=== PATIENT | male | born 1960 | race Caucasian/White ===

== ENCOUNTER 2016-11-25 11:38 | Emergency (ER) | payer OTHER, MEDICAID ==
[~2016-11-25] VITALS: Ht 172.7 cm; Wt 85.0 kg
[~2016-11-25 11:38] MED LIST: IBUP-238 PO; PENI500T PO; Z.0.NO CURRENT MEDS
[2016-11-25 11:40] VITALS: BP 182/97; PULSE 94; RESP 20; TEMP 98.4; O2SAT 96
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
[2016-11-25] MEDS ORDERED: HYDR-3583 PO (11:58)
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
[2016-11-25] MEDS ORDERED: IBUPROFEN 800 MG TAB PO ONE (12:00)
[2016-11-25] MEDS ORDERED: METHOCARBAMOL 500 MG TAB PO ONE (12:00)
[2016-11-25 13:03] VITALS: RESP 16
--- NOTE | 2016-11-25 14:04 | RADRPT ---
EXAM DATE/TIME: 11/25/2016 13:37 [facility] COMPARISON: No previous studies available for comparison. INDICATIONS : Right elbow pain after falling last night. MEDICAL HISTORY : None. SURGICAL HISTORY : None. ENCOUNTER: Initial ACUITY: 2 days PAIN SCORE: 5/10 LOCATION: Right elbow. FINDINGS: Degenerative changes are evident. Small joint effusion is noted. Alignment is anatomic. Fracture i s not appreciated. CONCLUSION: Trace joint effusion without fracture. Cuate Galeano MD FACR on November 25, 2016 at 13:59 Board Certified Radiologist. This report was verified electronically.
--- NOTE | 2016-11-25 14:07 | RADRPT ---
EXAM DATE/TIME: 11/25/2016 13:34 [facility] COMPARISON: No previous studies available for comparison. INDICATIONS : Left shoulder pain after falling last night. MEDICAL HISTORY : None. SURGICAL HISTORY : None. ENCOUNTER: Initial ACUITY: 2 days PAIN SCORE: 8/10 LOCATION: Left shoulder. FINDINGS: Degenerative changes are present at the AC joint. Rotator cuff interval is narrow. Glenoid is intac t. Lung apex is clear. CONCLUSION: Degenerative changes. What could be large impingement with rotator tear is suspected. Cuate Galeano MD FACR on November 25, 2016 at 13:58 Board Certified Radiologist. This report was verified electronically.
[2016-11-25] MEDS ORDERED: HYDR-3533 PO (14:19)
[2016-11-25] MEDS ORDERED: IBUP800T23 PO (14:19)
== END 2016-11-25 14:55 | disposition home or self-care (01) ==
LOC: NEPD 11:38
DX: S49.92XA Unspecified injury of left shoulder and upper arm, initial encounter (principal); S59.901A Unspecified injury of right elbow, initial encounter; S39.012A Strain of muscle, fascia and tendon of lower back, initial encounter; F31.9 Bipolar disorder, unspecified; E78.00 Pure hypercholesterolemia, unspecified; J44.9 Chronic obstructive pulmonary disease, unspecified; I10 Essential (primary) hypertension; K85.90 Acute pancreatitis without necrosis or infection, unspecified; V19.9XXA Pedal cyclist (driver) (passenger) injured in unspecified traffic accident, initial encounter
CPT/HCPCS: 73030; 73080; 99284

== ENCOUNTER 2017-04-03 19:57 | Emergency (ER) | payer OTHER, MEDICAID ==
[~2017-04-03 19:57] MED LIST changes: +HYDR-3533 PO; +HYDR-3583 PO; -IBUP-238 PO; +IBUP1TAB7 PO; -PENI500T PO; -Z.0.NO CURRENT MEDS
[2017-04-03 20:04] VITALS: BP 126/67; PULSE 115; RESP 18; TEMP 98.5; O2SAT 97
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
[2017-04-03] MEDS ORDERED: ROBA750T PO (21:03)
[2017-04-03] MEDS ORDERED: IBUP-232 PO (21:03)
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
[2017-04-03] MEDS ORDERED: IBUPROFEN 600 MG TAB PO ONE (21:45)
== END 2017-04-03 22:02 | disposition home or self-care (01) ==
LOC: NEPD 19:57
DX: S16.1XXA Strain of muscle, fascia and tendon at neck level, initial encounter (principal); S20.211A Contusion of right front wall of thorax, initial encounter; S70.02XA Contusion of left hip, initial encounter; V13.4XXA Pedal cycle driver injured in collision with car, pick-up truck or van in traffic accident, initial encounter; Y93.55 Activity, bike riding; E78.00 Pure hypercholesterolemia, unspecified; F31.9 Bipolar disorder, unspecified; I10 Essential (primary) hypertension; F17.200 Nicotine dependence, unspecified, uncomplicated
CPT/HCPCS: 71045; 72040; 73502; 99284

== ENCOUNTER 2017-08-07 18:19 | Inpatient (IN) | payer OTHER, MEDICAID, MEDICARE ==
[2017-08-07] VITALS (7 sets, daily range): BP systolic 174–223; BP diastolic 93–110; PULSE 83–92; RESP 18–20; TEMP 98.1–98.3; O2SAT 92–98
[~2017-08-07] VITALS: Ht 170.2 cm; Wt 78.5 kg
[~2017-08-07 18:19] MED LIST changes: +IBUP-232 PO; +ROBA750T PO
[2017-08-07 19:01] LABS: AUTOMATED NEUTROPHIL # 7.7 TH/MM3 (1.8-7.7); BASOPHIL # 0.1 TH/MM3 (0-0.2); BASOPHIL % 0.8 % (0.0-2.0); EOSINOPHIL # 0.3 TH/MM3 (0-0.4); EOSINOPHIL % 2.8 % (0.0-4.0); HEMATOCRIT 40.8 % (39.0-51.0); LYMPH % 19.3 % (9.0-44.0); LYMPHOCYTE # 2.2 TH/MM3 (1.0-4.8); MEAN CELL VOLUME 90.5 FL (80.0-100.0); MEAN CORPUSCULAR HEMOGLOBIN 31.1 PG (27.0-34.0); MEAN CORPUSCULAR HGB CONC 34.3 % (32.0-36.0); MEAN PLATELET VOLUME 10.8 FL (7.0-11.0); MONO % 9.4 % (0.0-8.0); MONOCYTE # 1.1 TH/MM3 (0-0.9); NEUT % 67.7 % (16.0-70.0); PLATELET COUNT 233 TH/MM3 (150-450); RED CELL DISTRIBUTION WIDTH 14.1 % (11.6-17.2); WHITE BLOOD COUNT 11.4 TH/MM3 (4.0-11.0)
[2017-08-07 19:09] LABS: BILIRUBIN, URINE NEG (NEG); BLOOD, URINE NEG (NEG); GLUCOSE,URINE NEG (NEG); KETONE, URINE NEG (NEG); NITRITE,URINE NEG (NEG); PH, URINE 6.5 (5.0-8.5); URINE COLOR LIGHT-YELLOW (YELLW/STRAW); URINE LEUKOCYTE ESTERASE NEG (NEG)
[2017-08-07] MEDS ORDERED: SODIUM CHLOR 0.9% 1000 ML INJ 1,000 ML IV ONE (19:15)
[2017-08-07] MEDS ORDERED: SODIUM CHLORIDE 0.9% FLUSH 10 ML FLUSH IVF PRN (19:15)
[2017-08-07 19:20] LABS: BICARBONATE 28.3 MEQ/L (21.0-32.0); CALCIUM 8.8 MG/DL (8.5-10.1); CREATININE 1.24 MG/DL (0.60-1.30)
--- NOTE | 2017-08-07 19:49 | RADRPT ---
EXAM DATE: 08/07/2017 7:33 PM EDT AGE/SEX: 57 years / Male INDICATIONS: Left sided weakness and slurred speech. CLINICAL DATA: This is the patient's initial encounter. Patient reports that signs and symptoms have been present for 1 day and indicates a pain score of 0/10. MEDICAL/SURGICAL HISTORY: Hypertension. Chronic obstructive pulmonary disease. Pancreatitis. None . RADIATION DOSE: 36.37 CTDI (mGy) COMPARISON: No prior exams available for comparison. TECHNIQUE: CT of the head without contrast. Using automated exposure control and adjustment of the mA and/or kV according to patient size, radiation dose was kept as low as reasonably achievable to ob tain optimal diagnostic quality images. FINDINGS: Cerebrum: There is some low attenuation in the right parietal lobe which could represent a subacute or remote infarct. There is no associated hemorrhage or mass effect. Remote lacunar infarct right bas al ganglia. No acute bony abnormalities. Posterior Fossa: The cerebellum and brainstem are intact. The 4th ventricle is midline. The cerebe llopontine angle is unremarkable. Extracranial: The visualized portion of the orbits is intact. Skull: The calvaria is intact. No evidence of skull fracture. CONCLUSION: 1. Wedge-shaped area of decreased attenuation in the right parietal lobe most characteristic of a shahid bacute or remote infarct. Also remote right lacunar infarct in the basal ganglia. No hemorrhage or ma ss effect. Electronically signed by: Remigio Parekh MD 08/07/2017 7:48 PM EDT
--- NOTE | 2017-08-07 19:51 | RADRPT ---
EXAM DATE: 08/07/2017 7:39 PM EDT AGE/SEX: 57 years / Male INDICATIONS: Left sided weakness and slurred speech. CLINICAL DATA: This is the patient's initial encounter. Patient reports that signs and symptoms have been present for 1 day and indicates a pain score of 0/10. MEDICAL/SURGICAL HISTORY: Hypertension. Chronic obstructive pulmonary disease. Pancreatitis. None. RADIATION DOSE: 23.42 CTDI (mGy) COMPARISON: No prior exams available for comparison. TECHNIQUE: Contiguous axial images were obtained using helical multirow detector technique. The vol umetric data was post-processed with multiplanar reconstruction in oblique axial, sagittal, and coron al planes. Using automated exposure control and adjustment of the mA and/or kV according to patient s ize, radiation dose was kept as low as reasonably achievable to obtain optimal diagnostic quality pilo ges. FINDINGS: There is no acute fracture or spondylolisthesis. There is fusion across C6-7. There is no significant bony canal stenosis. Moderate degenerative changes present. No prevertebral soft tissue swelling. CONCLUSION: 1. Moderate degenerative change. Previous fusion at C6-7. No significant canal stenosis. Electronically signed by: Remigio Parekh MD 08/07/2017 7:50 PM EDT
--- NOTE | 2017-08-07 20:03 | RADRPT ---
EXAM DATE: 08/07/2017 7:42 PM EDT AGE/SEX: 57 years / Male INDICATIONS: SOB CLINICAL DATA: This is the patient's initial encounter. Patient reports that signs and symptoms have been present for 3 days and indicates a pain score of 0/10. MEDICAL/SURGICAL HISTORY: None. None. COMPARISON: [facility], CHEST SINGLE AP, 04/03/2017. . FINDINGS: A single AP view of the chest demonstrates the lungs to be symmetrically aerated without evidence of mass, infiltrate or effusion. The cardiomediastinal contours are unremarkable. Osseous structures a re intact. CONCLUSION: No active disease. Electronically signed by: Remigio Parekh MD 08/07/2017 8:01 PM EDT
[2017-08-07] MEDS ORDERED: SERO100T PO (20:07)
--- NOTE | 2017-08-07 20:13 | PD ---
HPI Chief Complaint: Neuro Symptoms/ Deficits Time Seen by Provider: 19:04 Travel History International Travel<30 days: No Contact w/Intl Traveler<30days: No Traveled to known affect area: No History of Present Illness HPI Patient is a 57-year-old male with history of hypertension, hyperlipidemia, COPD as well as chronic pain who presents to the emergency room with complaints of left arm weakness. Patient reports that since yesterday morning, he has been unable to move his left arm. Reports that he has had this jerking sensation to his left face as well as jerking sensation to his left arm. Also reports some slurring of speech since yesterday morning. Patient denies history of CVA in the past. Patient with no headache or dizziness, no chest pain or shortness of breath. PFSH Past Medical History Blood Disorders: No Bipolar Disorder: Yes High Cholesterol: Yes COPD: Yes (chronic bronchitis) Diminished Hearing: No Hypertension: Yes Pancreatitis: Yes ?: Not Social History Alcohol Use: No Tobacco Use: Yes (1 PPD) Substance Use: Yes (THC Daily, Coccaine on occasion) Allergies-Medications (Allergen,Severity, Reaction): Coded Allergies: No Known Allergies (Verified Adverse Reaction, Unknown, 04/03/17) Reported Meds & Prescriptions Reported Meds & Active Scripts Active Robaxin (Methocarbamol) 750 Mg Tab 750 Mg PO QID Reported Seroquel (Quetiapine Fumarate) 100 Mg Tab 100 Mg PO HS Hydrocodone-Acetaminophen 10-325 mg Tab 1 Tab PO Q6H PRN Review of Systems General / Constitutional: No: Fever Eyes: No: Visual changes HENT: No: Headaches Cardiovascular: No: Chest Pain or Discomfort Respiratory: No: Shortness of Breath Gastrointestinal: No: Abdominal Pain Genitourinary: No: Dysuria Musculoskeletal: No: Pain Skin: No Rash Neurologic: Positive: Focal Abnormalities, Coordination Problem, Slurred Speech , Paresthesia, No: Weakness, Headache, Seizures, Sensory Disturbance Psychiatric: No: Depression Endocrine: No: Polydipsia Hematologic/Lymphatic: No: Easy Bruising Physical Exam Narrative GENERAL: Moderate distress SKIN: Focused skin assessment warm/dry. HEAD: Atraumatic. Normocephalic. EYES: Pupils equal and round. No scleral icterus. No injection or drainage. ENT: No nasal bleeding or discharge. Mucous membranes pink and moist. NECK: Trachea midline. No JVD. CARDIOVASCULAR: Regular rate and rhythm. No murmur appreciated. RESPIRATORY: No accessory muscle use. Clear to auscultation. Breath sounds equal bilaterally. GASTROINTESTINAL: Abdomen soft, non-tender, nondistended. Hepatic and splenic margins not palpable. MUSCULOSKELETAL: No obvious deformities. No clubbing. No cyanosis. No edema. NEUROLOGICAL: Awake and alert. Patient with slurring of speech, patient does have weakness to his left upper extremity, he is unable to move his lue PSYCHIATRIC: Anxious mood and affect; insight and judgment normal. Data Data Last Documented VS Vital Signs Date Time Temp Pulse Resp B/P (MAP) Pulse Ox O2 Delivery O2 Flow Rate FiO2 08/07/17 20:17 83 20 196/93 (127) 94 Room Air 08/07/17 18:48 98.3 Orders Orders Oximetry (08/07/17 18:42) Iv Access Insert/Monitor (08/07/17 18:42) Ecg Monitoring (08/07/17 18:42) Oxygen Administration (08/07/17 18:42) Electrocardiogram (08/07/17 18:42) Complete Blood Count With Diff (08/07/17 18:42) Basic Metabolic Panel (Bmp) (08/07/17 18:42) Urinalysis - C+S If Indicated (08/07/17 18:42) Coag Profile (08/07/17 18:42) Electrocardiogram (08/07/17 19:04) Creatine Kinase (Cpk) (08/07/17 19:04) Troponin I (08/07/17 19:04) Ct Brain W/O Iv Contrast(Rout) (08/07/17 19:04) Blood Glucose (08/07/17 19:04) Sodium Chloride 0.9% Flush (Ns Flush) (08/07/17 19:15) Ct Cerv Spine W/O Contrast (08/07/17 19:04) Chest, Single Ap (08/07/17 19:04) Sodium Chlor 0.9% 1000 Ml Inj (Ns 1000 M (08/07/17 19:15) Aspirin Chew (Aspirin Chew) (08/07/17 20:15) Lorazepam Inj (Ativan Inj) (08/07/17 20:30) Admit Order (Ed Use Only) (08/07/17 20:44) Labs Laboratory Tests Test 08/07/17 18:45 08/07/17 18:48 Urine Color LIGHT-YELLOW Urine Turbidity CLEAR Urine pH 6.5 Urine Specific [place] 1.007 Urine Protein NEG mg/dL Urine Glucose (UA) NEG mg/dL Urine Ketones NEG mg/dL Urine Occult Blood NEG Urine Nitrite NEG Urine Bilirubin NEG Urine Urobilinogen LESS THAN 2.0 MG/DL Urine Leukocyte Esterase NEG Urine RBC LESS THAN 1 /hpf Urine WBC LESS THAN 1 /hpf Microscopic Urinalysis Comment CULT NOT INDICATED White Blood Count 11.4 TH/MM3 Red Blood Count 4.50 MIL/MM3 Hemoglobin 14.0 GM/DL Hematocrit 40.8 % Mean Corpuscular Volume 90.5 FL Mean Corpuscular Hemoglobin 31.1 PG Mean Corpuscular Hemoglobin Concent 34.3 % Red Cell Distribution Width 14.1 % Platelet Count 233 TH/MM3 Mean Platelet Volume 10.8 FL Neutrophils (%) (Auto) 67.7 % Lymphocytes (%) (Auto) 19.3 % Monocytes (%) (Auto) 9.4 % Eosinophils (%) (Auto) 2.8 % Basophils (%) (Auto) 0.8 % Neutrophils # (Auto) 7.7 TH/MM3 Lymphocytes # (Auto) 2.2 TH/MM3 Monocytes # (Auto) 1.1 TH/MM3 Eosinophils # (Auto) 0.3 TH/MM3 Basophils # (Auto) 0.1 TH/MM3 CBC Comment DIFF FINAL Differential Comment Prothrombin Time 10.0 SEC Prothromb Time International Ratio 1.0 RATIO Activated Partial Thromboplast Time 26.1 SEC Blood Urea Nitrogen 10 MG/DL Creatinine 1.24 MG/DL Random Glucose 89 MG/DL Calcium Level 8.8 MG/DL Sodium Level 139 MEQ/L Potassium Level 4.1 MEQ/L Chloride Level 104 MEQ/L Carbon Dioxide Level 28.3 MEQ/L Anion Gap 7 MEQ/L Estimat Glomerular Filtration Rate 61 ML/MIN MDM Medical Decision Making Medical Screen Exam Complete: Yes Emergency Medical Condition: Yes Medical Record Reviewed: Yes Interpretation(s) Vital Signs Date Time Temp Pulse Resp B/P (MAP) Pulse Ox O2 Delivery O2 Flow Rate FiO2 08/07/17 18:48 98.3 92 18 174/110 (131) 96 Room Air 08/07/17 18:47 96 Room Air 08/07/17 18:47 18 95 Room Air 08/07/17 18:32 90 18 223/108 (146) 93 Room Air 08/07/17 18:32 90 18 93 Room Air 08/07/17 18:27 88 18 223/108 (146) 92 Laboratory Tests Test 08/07/17 18:45 08/07/17 18:48 Urine Color LIGHT-YELLOW (YELLW/STRAW) Urine Turbidity CLEAR (CLEAR) Urine pH 6.5 (5.0-8.5) Urine Specific [place] 1.007 (1.002-1.035) Urine Protein NEG mg/dL (NEG-TRACE) Urine Glucose (UA) NEG mg/dL (NEG) Urine Ketones NEG mg/dL (NEG) Urine Occult Blood NEG (NEG) Urine Nitrite NEG (NEG) Urine Bilirubin NEG (NEG) Urine Urobilinogen LESS THAN 2.0 MG/DL (LESS Urine Leukocyte Esterase NEG (NEG) Urine RBC LESS THAN 1 /hpf (0-3) Urine WBC LESS THAN 1 /hpf (0-5) Microscopic Urinalysis Comment CULT NOT INDICATED White Blood Count 11.4 TH/MM3 (4.0-11.0) Red Blood Count 4.50 MIL/MM3 (4.50-5.90) Hemoglobin 14.0 GM/DL (13.0-17.0) Hematocrit 40.8 % (39.0-51.0) Mean Corpuscular Volume 90.5 FL (80.0-100.0) Mean Corpuscular Hemoglobin 31.1 PG (27.0-34.0) Mean Corpuscular Hemoglobin Concent 34.3 % (32.0-36.0) Red Cell Distribution Width 14.1 % (11.6-17.2) Platelet Count 233 TH/MM3 (150-450) Mean Platelet Volume 10.8 FL (7.0-11.0) Neutrophils (%) (Auto) 67.7 % (16.0-70.0) Lymphocytes (%) (Auto) 19.3 % (9.0-44.0) Monocytes (%) (Auto) 9.4 % (0.0-8.0) Eosinophils (%) (Auto) 2.8 % (0.0-4.0) Basophils (%) (Auto) 0.8 % (0.0-2.0) Neutrophils # (Auto) 7.7 TH/MM3 (1.8-7.7) Lymphocytes # (Auto) 2.2 TH/MM3 (1.0-4.8) Monocytes # (Auto) 1.1 TH/MM3 (0-0.9) Eosinophils # (Auto) 0.3 TH/MM3 (0-0.4) Basophils # (Auto) 0.1 TH/MM3 (0-0.2) CBC Comment DIFF FINAL Differential Comment Prothrombin Time 10.0 SEC (9.8-11.6) Prothromb Time International Ratio 1.0 RATIO Activated Partial Thromboplast Time 26.1 SEC (24.3-30.1) Blood Urea Nitrogen 10 MG/DL (7-18) Creatinine 1.24 MG/DL (0.60-1.30) Random Glucose 89 MG/DL (74-106) Calcium Level 8.8 MG/DL (8.5-10.1) Sodium Level 139 MEQ/L (136-145) Potassium Level 4.1 MEQ/L (3.5-5.1) Chloride Level 104 MEQ/L (98-107) Carbon Dioxide Level 28.3 MEQ/L (21.0-32.0) Anion Gap 7 MEQ/L (5-15) Estimat Glomerular Filtration Rate 61 ML/MIN (>89) Last Impressions Head CT 08/07/171903 Signed Impressions: CONCLUSION: 1. Wedge-shaped area of decreased attenuation in the right parietal lobe most characteristic of a subacute or remote infarct. Also remote right lacunar infar ct in the basal ganglia. No hemorrhage or mass effect. Chest X-Ray 08/07/171903 Signed Impressions: CONCLUSION: No active disease. Cervical Spine CT 08/07/171903 Signed Impressions: CONCLUSION: 1. Moderate degenerative change. Previous fusion at C6-7. No significant canal stenosis. Differential Diagnosis CVA, TIA, intracranial hemorrhage, electrolyte abnormality Narrative Course 57-year-old male who presents the emergency room with complaints of slurring speech, left arm weakness which began yesterday morning. Patient is out of the window for lytics given that his symptoms began yesterday morning. CVA workup was initiated upon arrival to the emergency room. CT of the head showed a wedge -shaped area of decreased attenuation in the right parietal lobe most characteristic of a subacute or remote infarct. Last Impressions Head CT 08/07/171903 Signed Impressions: CONCLUSION: 1. Wedge-shaped area of decreased attenuation in the right parietal lobe most characteristic of a subacute or remote infarct. Also remote right lacunar infar ct in the basal ganglia. No hemorrhage or mass effect. Chest X-Ray 08/07/171903 Signed Impressions: CONCLUSION: No active disease. Cervical Spine CT 08/07/171903 Signed Impressions: CONCLUSION: 1. Moderate degenerative change. Previous fusion at C6-7. No significant canal stenosis. Patient was given an aspirin, he will require admission to the hospital for a stroke workup. I did review all findings with patient in detail. Case reviewed with Dr. Enrique who accepts pt to service Diagnosis Primary Impression: CVA (cerebral vascular accident) Qualified Codes: I63.9 - Cerebral infarction, unspecified Admitting Information Admitting Physician Requests: Valarie Plunkett DO Aug 07, 2017 20:13
[2017-08-07] MEDS ORDERED: ASPIRIN 81 MG CHEW TAB CHEW ONE (20:15)
[2017-08-07] MEDS ORDERED: LORazepam 2 MG/ML VIAL IV PUSH ONE (20:30)
[2017-08-07] MEDS ORDERED: DEXTROSE 50% IN WATER 50 ML VIAL(D50) IV PUSH PRN (20:45)
[2017-08-07] MEDS ORDERED: GLUCAGON 1 MG/ML VIAL OTHER PRN (20:45)
[2017-08-07] MEDS ORDERED: SODIUM CHLORIDE 0.9% FLUSH 10 ML FLUSH IV FLUSH PRN (20:45)
--- NOTE | 2017-08-07 20:46 | HHI.HP ---
[facility] Service [facility] Hospitalists Primary Care Physician Unknown Admission Diagnosis CVA Diagnoses: (1) CVA (cerebral vascular accident) Diagnosis: Principal (2) COPD (chronic obstructive pulmonary disease) Diagnosis: Principal (3) HTN (hypertension) Diagnosis: Principal (4) Cocaine abuse Diagnosis: Principal (5) Tobacco abuse Diagnosis: Principal Travel History International Travel<30 Days: No Contact w/Intl Traveler <30 Da: No Traveled to Known Affected Are: No History of Present Illness This is a 57-year-old male with a PMH of HTN, Hyperlipidemia, Bipolar Disorder, COPD, Tobacco Abuse and Cocaine Abuse who presented to the ER with complaints of left arm weakness x1 day. States he's been unable to move his left arm since yesterday. When I asked him why he didn't come into the ER at that time, he said "because of transportation issues". Denies previous h/o CVA. Does admit to Cocaine, last use 2 days ago. +associated slurred speech. On arrival , BP 223/108, HR 88, O2 sat 92% on RA, Afebrile. CBC essentially unremarkable except for WBC 11.4. Chemistry unremarkable except for GFR 61. Troponin negative. UA negative. Urine Drug Screen positive for Cocaine, THC and Opiates. CXR with no acute findings. CT Head with wedge-shaped area of subacute or remote infarct right parietal lobe, remote right lacunar infarct basal ganglia. CT C-spine with no acute findings. Review of Systems Except as stated in HPI: all other systems reviewed are Neg ROS: 14 point review of systems otherwise negative. Past Family Social History Past Medical History PMH: HTN, Hyperlipidemia, Bipolar Disorder, COPD, Tobacco Abuse and Cocaine Abuse Past Surgical History PAST SURGICAL HISTORY: Cervical Fusion Allergies: Coded Allergies: No Known Allergies (Verified Allergy, Unknown, 08/07/17) Family History PAST FAMILY HISTORY: Reviewed. No h/o DM or CAD Social History PAST SOCIAL HISTORY: Negative for alcohol. Smokes 1ppd. +Cocaine and THC Physical Exam Vital Signs Vital Signs Date Time Temp Pulse Resp B/P (MAP) Pulse Ox O2 Delivery O2 Flow Rate FiO2 08/07/17 20:17 83 20 196/93 (127) 94 Room Air 08/07/17 18:48 98.3 92 18 174/110 (131) 96 Room Air 08/07/17 18:47 96 Room Air 08/07/17 18:47 18 95 Room Air 08/07/17 18:32 90 18 223/108 (146) 93 Room Air 08/07/17 18:32 90 18 93 Room Air 08/07/17 18:27 88 18 223/108 (146) 92 Physical Exam PE: GENERAL: Middle-aged white male in no acute distress. Smells of tobacco. HEENT: PERRLA, EOMI. No scleral icterus or conjunctival pallor. No lid lag or facial droop. Mild slurred speech CARDIOVASCULAR: Regular rate and rhythm. No obvious murmurs to auscultation. No chest tenderness to palpation. RESPIRATORY: No obvious rhonchi. +Wheezing. Clear to auscultation. Breath sounds equal bilaterally. GASTROINTESTINAL: Abdomen soft, non-tender, nondistended. BS normal. MUSCULOSKELETAL: Extremities without clubbing, cyanosis, or edema. No obvious deformities. NEUROLOGICAL: Awake, alert and oriented x4. LUE w/ tremor, strength 0/5, all other extremities 5/5. Moving both upper and lower extremities spontaneously. Laboratory Laboratory Tests Test 08/07/17 18:45 08/07/17 18:48 Urine Color LIGHT-YELLOW Urine Turbidity CLEAR Urine pH 6.5 Urine Specific [place] 1.007 Urine Protein NEG Urine Glucose (UA) NEG Urine Ketones NEG Urine Occult Blood NEG Urine Nitrite NEG Urine Bilirubin NEG Urine Urobilinogen LESS THAN 2.0 Urine Leukocyte Esterase NEG Urine RBC LESS THAN 1 Urine WBC LESS THAN 1 Microscopic Urinalysis Comment CULT NOT INDICATED White Blood Count 11.4 Red Blood Count 4.50 Hemoglobin 14.0 Hematocrit 40.8 Mean Corpuscular Volume 90.5 Mean Corpuscular Hemoglobin 31.1 Mean Corpuscular Hemoglobin Concent 34.3 Red Cell Distribution Width 14.1 Platelet Count 233 Mean Platelet Volume 10.8 Neutrophils (%) (Auto) 67.7 Lymphocytes (%) (Auto) 19.3 Monocytes (%) (Auto) 9.4 Eosinophils (%) (Auto) 2.8 Basophils (%) (Auto) 0.8 Neutrophils # (Auto) 7.7 Lymphocytes # (Auto) 2.2 Monocytes # (Auto) 1.1 Eosinophils # (Auto) 0.3 Basophils # (Auto) 0.1 CBC Comment DIFF FINAL Differential Comment Prothrombin Time 10.0 Prothromb Time International Ratio 1.0 Activated Partial Thromboplast Time 26.1 Blood Urea Nitrogen 10 Creatinine 1.24 Random Glucose 89 Calcium Level 8.8 Sodium Level 139 Potassium Level 4.1 Chloride Level 104 Carbon Dioxide Level 28.3 Anion Gap 7 Estimat Glomerular Filtration Rate 61 Result Diagram: 08/07/17184708/07/171847 Caprini VTE Risk Assessment Caprini VTE Risk Assessment: No/Low Risk (score <= 1) Caprini Risk Assessment Model Point Value = 1 Point Value = 2 Point Value = 3 Point Value = 5 Age 41-60 Minor surgery BMI > 25 kg/m2 Swollen legs Varicose veins or History of unexplained or recurrent spontaneous Oral contraceptives or hormone replacement Sepsis (< 1 month) Serious lung disease, including pneumonia (< 1 month) Abnormal pulmonary function Acute myocardial infarction Congestive heart failure (< 1 month) History of inflammatory bowel disease Medical patient at bed rest Age 61-74 Arthroscopic surgery Major open surgery (> 45 min) Laparoscopic surgery (> 45 min) Malignancy Confined to bed (> 72 hours) Immobilizing plaster cast Central venous access Age >= 75 History of VTE Family history of VTE Factor V Leiden Prothrombin [id number] Lupus anticoagulant Anticardiolipin antibodies Elevated serum homocysteine Heparin-induced thrombocytopenia Other congenital or acquired thrombophilia Stroke (< 1 month) Elective arthroplasty Hip, pelvis, or leg fracture Acute spinal cord injury (< 1 month) Prophylaxis Regimen Total Risk Factor Score Risk Level Prophylaxis Regimen 0-1 Low Early ambulation 2 Moderate Order ONE of the following: *Sequential Compression Device (SCD) *Heparin 5000 units SQ BID 3-4 Higher Order ONE of the following medications: *Heparin 5000 units SQ TID *Enoxaparin/Lovenox 40 mg SQ daily (WT < 150 kg, CrCl > 30 mL/min) *Enoxaparin/Lovenox 30 mg SQ daily (WT < 150 kg, CrCl > 10-29 mL/min) *Enoxaparin/Lovenox 30 mg SQ BID (WT < 150 kg, CrCl > 30 mL/min) AND/OR *Sequential Compression Device (SCD) 5 or more Highest Order ONE of the following medications: *Heparin 5000 units SQ TID (Preferred with Epidurals) *Enoxaparin/Lovenox 40 mg SQ daily (WT < 150 kg, CrCl > 30 mL/min) *Enoxaparin/Lovenox 30 mg SQ daily (WT < 150 kg, CrCl > 10-29 mL/min) *Enoxaparin/Lovenox 30 mg SQ BID (WT < 150 kg, CrCl > 30 mL/min) AND *Sequential Compression Device (SCD) Assessment and Plan Problem List: (1) CVA (cerebral vascular accident) ICD Code: I63.9 - Cerebral infarction, unspecified Status: Acute (2) HTN (hypertension) ICD Code: I10 - Essential (primary) hypertension (3) COPD (chronic obstructive pulmonary disease) ICD Code: J44.9 - Chronic obstructive pulmonary disease, unspecified (4) Cocaine abuse ICD Code: F14.10 - Cocaine abuse, uncomplicated (5) Tobacco abuse ICD Code: Z72.0 - Tobacco use Assessment and Plan A/P: 1. CVA: acute onset LUE weakness/tremor w/ slurred speech x1 day. CT Head w/ subacute/remote infarct to right parietal lobe and remote right lacunar infarct basal ganglia, images reviewed by me. UDS +cocaine. Check Lipid Profile, Check Hgb A1c, Neuro Checks, Consult Neurology for further eval/recommendations , PT for eval/tx. ASA, Statin. Permissive HTN. 2. HTN: Uncontrolled. Will allow for permissive HTN in light of CVA, antihypertensives for BP >220. Monitor BP. 3. COPD: Chronic Respiratory Failure w/ Acute Exacerbation, +wheezing on exam , DuoNeb prn, monitor O2. 4. Cocaine Abuse: admits to recent use 2 days ago, pt counselled. Ativan prn. 5. Tobacco Abuse: Counselled. No NicoDerm to avoid vasoconstriction. Ativan prn 6. DVT Prophylaxis: SCD/Teds 7. Social work for d/c planning as needed 8. Case discussed w/ ER physician at length, labs/records/imaging reviewed by me Physician Certification 2 Midnight Certification Type: Admission for Inpatient Services Order for Inpatient Services The services are ordered in accordance with Medicare regulations or non- Medicare payer requirements, as applicable. In the case of services not specified as inpatient-only, they are appropriately provided as inpatient services in accordance with the 2-midnight benchmark. Estimated LOS (days): 2 days is the estimated time the patient will need to remain in the hospital, assuming treatment plan goals are met and no additional complications. Post-Hospital Plan: Not yet determined Problem Qualifiers (1) CVA (cerebral vascular accident): Qualified Codes: I63.9 - Cerebral infarction, unspecified Ashlie Enrique MD Aug 07, 2017 20:46
[2017-08-07 21:03] LABS: TROPONIN I LESS THAN 0.02 NG/ML (0.02-0.05)
[2017-08-07] MEDS: INSULIN ASPART SUPPLEMENTAL SCALE SQ SCH (21:10)
[2017-08-07] MEDS ORDERED: RESP: ALBUTEROL 2.5 MG/IPRATROPIUM 0.5 MG NEB (PRN) NEB (21:15)
[2017-08-07] MEDS: PRAVASTATIN SOD 40 MG TAB PO SCH (23:05)
[2017-08-07] MEDS: SODIUM CHLORIDE 0.9% FLUSH 10 ML FLUSH IV FLUSH SCH (23:06)
[2017-08-07] MEDS: SODIUM CHLOR 0.9% 1000 ML INJ 1,000 ML IV SCH (23:07)
[2017-08-08] VITALS (9 sets, daily range): BP systolic 189–219; BP diastolic 91–114; PULSE 78–91; RESP 18–20; TEMP 97.4–98.1; O2SAT 95–97
[2017-08-08] MEDS: INSULIN ASPART SUPPLEMENTAL SCALE SQ SCH ×4 (08:00→21:00)
[2017-08-08 08:36] LABS: CHOLESTEROL 190 MG/DL (120-200); TRIGLYCERIDES 224 MG/DL (42-150)
[2017-08-08 08:38] LABS: CHOLESTEROL/ HDL RATIO 4.18 RATIO; HDL CHOLESTEROL 45.4 MG/DL (40.0-60.0); LDL CHOLESTEROL 100 MG/DL (0-99)
[2017-08-08] MEDS ORDERED: ASPIRIN 81 MG CHEW TAB PO SCH (09:00)
[2017-08-08] MEDS: SODIUM CHLORIDE 0.9% FLUSH 10 ML FLUSH IV FLUSH SCH ×3 (09:32→21:00)
[2017-08-08 10:27] LABS: HEMOGLOBIN A1C 5.7 % (4.3-6.0)
[2017-08-08] MEDS: SODIUM CHLOR 0.9% 1000 ML INJ 1,000 ML IV SCH (11:06)
--- NOTE | 2017-08-08 11:57 | HHI.PR ---
Subjective Remarks The patient was complaining of pain in his left knuckles. He said that he has been unable to use his left arm although he has sensation intact. He said that he has had spasms in his left arm since yesterday. He did have some speech difficulties yesterday but they have resolved. Discussed with nursing at the bedside. Objective Vitals Vital Signs Date Time Temp Pulse Resp B/P (MAP) Pulse Ox O2 Delivery O2 Flow Rate FiO2 08/08/17 08:00 97.9 85 18 218/113 (148) 95 08/08/17 05:15 98.1 80 20 219/105 (143) 96 08/08/17 03:59 98.1 80 18 219/105 (143) 96 08/08/17 02:30 78 08/08/17 00:30 98.1 87 20 216/107 (143) 97 08/07/17 22:18 98.1 85 20 218/105 (142) 98 08/07/17 21:46 08/07/17 20:48 94 08/07/17 20:17 83 20 196/93 (127) 94 Room Air 08/07/17 18:48 98.3 92 18 174/110 (131) 96 Room Air 08/07/17 18:47 96 Room Air 08/07/17 18:47 18 95 Room Air 08/07/17 18:32 90 18 223/108 (146) 93 Room Air 08/07/17 18:32 90 18 93 Room Air 08/07/17 18:27 88 18 223/108 (146) 92 I/O 08/07/17 08/07/17 08/07/17 08/08/17 08/08/17 08/08/17 06:59 14:59 22:59 06:59 14:59 22:59 Intake Total 1000 ml Output Total 300 ml 320 ml Balance 1000 ml -300 ml -320 ml Intake IV Total 1000 ml Output Urine Total 300 ml 320 ml # Voids 1 1 Result Diagram: 08/07/17184708/07/171847 Imaging Last Impressions Head CT 08/07/171903 Signed Impressions: CONCLUSION: 1. Wedge-shaped area of decreased attenuation in the right parietal lobe most characteristic of a subacute or remote infarct. Also remote right lacunar infar ct in the basal ganglia. No hemorrhage or mass effect. Chest X-Ray 08/07/171903 Signed Impressions: CONCLUSION: No active disease. Cervical Spine CT 08/07/171903 Signed Impressions: CONCLUSION: 1. Moderate degenerative change. Previous fusion at C6-7. No significant canal stenosis. Objective Remarks GENERAL: Appears uncomfortable. HEENT: PERRLA, EOMI. No scleral icterus or conjunctival pallor. No lid lag or facial droop. Mild slurred speech. CARDIOVASCULAR: Regular rate and rhythm. No obvious murmurs to auscultation. No chest tenderness to palpation. RESPIRATORY: Clear to auscultation. Breath sounds equal bilaterally. GASTROINTESTINAL: Abdomen soft, non-tender, nondistended. BS normal. MUSCULOSKELETAL: Extremities without clubbing, cyanosis, or edema. No obvious deformities. NEUROLOGICAL: Awake, alert and oriented x4. LUE w/ tremor, strength 0/5, all other extremities 5/5. Moving both upper and lower extremities spontaneously. Sensation intact. A/P Problem List: (1) CVA (cerebral vascular accident) ICD Code: I63.9 - Cerebral infarction, unspecified Status: Acute (2) HTN (hypertension) ICD Code: I10 - Essential (primary) hypertension (3) COPD (chronic obstructive pulmonary disease) ICD Code: J44.9 - Chronic obstructive pulmonary disease, unspecified (4) Cocaine abuse ICD Code: F14.10 - Cocaine abuse, uncomplicated (5) Tobacco abuse ICD Code: Z72.0 - Tobacco use Assessment and Plan CVA Acute onset LUE weakness/tremor w/ slurred speech x1 day. CT Head w/ subacute/ remote infarct to right parietal lobe and remote right lacunar infarct basal ganglia. UDS + cocaine, opiates and cannabinoids. - Neuro checks. - Consult neurology for further eval/recommendations. - PT/ OT/ ST. - ASA, statin. - check A1c. Hypertensive emergency S/p permissive HTN in light of CVA. - start lisinopril 10 mg daily. - Vasotec as needed. COPD Does not appear to be in exacerbation. - DuoNeb prn. - O2 as needed. Cocaine Abuse Admits to recent use 2 days prior to admission. - pt counselled. - Ativan prn. Tobacco Abuse Counselled. - No NicoDerm to avoid vasoconstriction. - Ativan prn DVT Prophylaxis: Lovenox Problem Qualifiers (1) CVA (cerebral vascular accident): Qualified Codes: I63.9 - Cerebral infarction, unspecified Errol Sandoval DO Aug 08, 2017 11:57
[2017-08-08] MEDS ORDERED: MORPHINE SULFATE 4 MG/ML INJ IV PUSH ONE (12:00)
[2017-08-08] MEDS: ENOXAPARIN SODIUM 40 MG/0.4 ML SYRINGE SQ SCH (12:37)
[2017-08-08] MEDS: ACETAMINOPHEN/HYDROcodone 325 MG/10 MG TAB PO PRN ×2 (12:37→18:28)
[2017-08-08] MEDS: LISINOPRIL 10 MG TAB PO SCH (12:41)
[2017-08-08] MEDS ORDERED: SODIUM CHLORIDE 0.9% FLUSH 10 ML FLUSH IV FLUSH PRN (14:15)
[2017-08-08] MEDS: ASPIRIN 325 MG TAB PO SCH (14:15)
[2017-08-08] MEDS ORDERED: GLUCAGON 1 MG/ML VIAL OTHER PRN (14:15)
[2017-08-08] MEDS ORDERED: DEXTROSE 50% IN WATER 50 ML VIAL(D50) IV PUSH PRN (14:15)
--- NOTE | 2017-08-08 14:22 | MB ---
cc: Des Hood MD, PhD DATE: 08/08/2017 REASON FOR CONSULTATION: Stroke. HISTORY OF PRESENT ILLNESS: Mr. Hsieh is a 57-year-old man. He states he developed tremulousness in both upper extremities, which came on suddenly yesterday. He denies any focal weakness. PAST MEDICAL HISTORY: History of bipolar disorder, hyperlipidemia, hypertension, COPD. SOCIAL HISTORY: He has a history of cocaine abuse, tobacco abuse. NEUROLOGIC EXAMINATION: Blood pressure is 216/107, pulse 87, respiratory rate is 20, temperature 98 degrees. Higher cortical functions: He is alert and oriented x 3. Speech is normal. Cranial nerves intact. Motor exam: He has got diffuse tremors in both upper extremities, mainly sustention tremors. He has no focal weakness. Reflexes are 2+, symmetric. There is no Babinski sign present. DIAGNOSTIC DATA: CT of the brain: Low area of attenuation, right parietal lobe, consistent with a subacute or remote infarction. Cervical spine CT: Mild degenerative changes, previous fusion C6-C7, no canal stenosis. LABORATORY DATA: White count 11,100, hemoglobin 14, hematocrit 40%, platelet count 233,000. The PT is 10, INR 1, aPTT 26.1. Sodium is 139, potassium is 4.1, chloride 104, CO2 is 28.3, BUN is 10, creatinine 1.24, glucose is 89. LDL 100, HDL 45, triglycerides 224. Tox screen positive for cocaine, cannabinoids and opiates. Urinalysis pH is 6.5, specific gravity 1.007. IMPRESSION: 1. Right parietal stroke. 2. Bilateral tremors. This would be unusual for a stroke symptom. This may be related to his history of cocaine abuse. RECOMMENDATIONS: Start aspirin 325 mg daily because of the stroke. We will obtain a carotid ultrasound and echocardiogram. Further evaluation with an MRI of the brain and MRA would be helpful. Also recommend statin therapy because of the elevated LDL. Des Hood MD, PhD AMBIKA/SB , 02:04 PM , 02:21 PM
--- NOTE | 2017-08-08 14:40 | EKG ---
Date Performed: 08/07/2017 Time Performed: 18:04:09 PTAGE: 57 years EKG: Sinus rhythm NORMAL ECG NO PREVIOUS TRACING DOCTOR: Karson Swain Interpretating Date/Time 08/08/2017 14:37:37
--- NOTE | 2017-08-08 16:52 | RADRPT ---
EXAM DATE: 08/08/2017 4:32 PM EDT AGE/SEX: 57 years / Male INDICATIONS: Left sided weakness. CLINICAL DATA: This is the patient's initial encounter. Patient reports that signs and symptoms have been present for 1 day and indicates a pain score of 0/10. MEDICAL/SURGICAL HISTORY: Chronic obstructive pulmonary disease. Hypertension. Discectomy, cer vical. COMPARISON: No prior exams available for comparison. TECHNIQUE: 3D [id number] MRA was performed. Source images, multiplanar STS MIP, and 3D volum e MIP reconstructions were reviewed. FINDINGS: The exam is degraded by motion artifact. No occlusive disease is identified. No significant stenosis. No discrete aneurysm on MRA brain. CONCLUSION: 1. Exam degraded by motion with no significant stenosis or aneurysm identified. Electronically signed by: Remigio Parekh MD 08/08/2017 4:50 PM EDT
--- NOTE | 2017-08-08 16:56 | RADRPT ---
EXAM DATE: 08/08/2017 4:14 PM EDT AGE/SEX: 57 years / Male INDICATIONS: Left sided weakness. CLINICAL DATA: This is the patient's initial encounter. Patient reports that signs and symptoms have been present for 1 day and indicates a pain score of 0/10. MEDICAL/SURGICAL HISTORY: Chronic obstructive pulmonary disease. Hypertension. Fusion, cervica l. COMPARISON: No prior exams available for comparison. TECHNIQUE: Multiplanar, multisequence examination of the brain was performed without contrast. FINDINGS: There are numerous small mostly peripheral infarcts in the right MCA distribution, most of which are posterior. Infarcts range in size from subcentimeter to about 2 cm in diameter. No associated hemorrh age is identified. Exam is degraded by motion. There is moderate chronic ischemic change in the periv entricular white matter. Currently no significant mass effect or shift. No hydrocephalus. CONCLUSION: 1. Multiple infarcts in the right MCA distribution predominantly posteriorly as above. 2. Mild to moderate chronic white matter ischemic changes in the periventricular region. Electronically signed by: Remigio Parekh MD 08/08/2017 4:54 PM EDT
--- NOTE | 2017-08-08 17:11 | RADRPT ---
EXAM DATE: 08/08/2017 4:35 PM EDT AGE/SEX: 57 years / Male INDICATIONS: Cerebrovascular accident. CLINICAL DATA: This is the patient's initial encounter. Patient reports that signs and symptoms have been present for 1 day and indicates a pain score of 0/10. MEDICAL/SURGICAL HISTORY: Hypercholesterolemia. Hypertension. Chronic obstructive pulmonary d isease. Glasses. Pancreatitis. Bipolar disorder. Previous suicide attempt. Non-responsive. C6-C7 fu liane, 1995. COMPARISON: No prior exams available for comparison. VELOCITY PARAMETERS: ICA/CCA Ratio: Right 4.6 , Left 1.4 ICA: Right 225.6 cm/sec, Left 46.2 cm/sec CCA: Right 48.6 cm/sec, Left 46.2 cm/sec ECA: Right 108.1 cm/sec, Left 77.9 cm/sec Vertebral: Right 33.1 cm/sec antegrade, Left 53.7 cm/sec antegrade FINDINGS: Right Carotid: Peak systolic velocity and PSV ratio on the right characteristic of a severe carotid stenosis. Extensive plaque present. Left Carotid: No significant stenosis is visualized. The waveforms are within normal limits. Other: None. CONCLUSION: 1. Right Internal Carotid Artery: Severe stenosis at the proximal right internal carotid artery. Thi s could be better evaluated with CTA carotids. 2. Left Internal Carotid Artery: No hemodynamically significant stenosis. Electronically signed by: Remigio Parekh MD 08/08/2017 5:10 PM EDT
[2017-08-08] MEDS: QUEtiapine FUMARATE 100 MG TAB PO SCH (21:35)
[2017-08-08] MEDS: PRAVASTATIN SOD 40 MG TAB PO SCH (21:35)
[2017-08-09] VITALS (11 sets, daily range): BP systolic 129–194; BP diastolic 83–105; PULSE 62–88; RESP 18–20; TEMP 97.6–98.6; O2SAT 93–96
[2017-08-09] MEDS: SODIUM CHLOR 0.9% 1000 ML INJ 1,000 ML IV SCH ×3 (02:00→20:08)
[2017-08-09] MEDS: ACETAMINOPHEN/HYDROcodone 325 MG/10 MG TAB PO PRN ×4 (06:25→20:08)
[2017-08-09] MEDS: SODIUM CHLORIDE 0.9% FLUSH 10 ML FLUSH IV FLUSH SCH ×4 (09:37→20:07)
[2017-08-09] MEDS: ASPIRIN 325 MG TAB PO SCH (09:38)
[2017-08-09] MEDS: LISINOPRIL 10 MG TAB PO SCH (09:38)
[2017-08-09] MEDS: ENOXAPARIN SODIUM 40 MG/0.4 ML SYRINGE SQ SCH (11:34)
--- NOTE | 2017-08-09 14:06 | HHI.PR ---
Subjective Remarks The patient stated that his tremors have gotten a lot better. He said he is still smoking cigarettes. He says he has been eating and has not been getting enough food. No other acute complaints. Objective Vitals Vital Signs Date Time Temp Pulse Resp B/P (MAP) Pulse Ox O2 Delivery O2 Flow Rate FiO2 08/09/17 12:49 97.9 84 20 95 08/09/17 08:00 97.6 83 18 129/83 (98) 95 08/09/17 03:55 98.6 88 20 193/105 (134) 96 08/09/17 03:39 81 08/09/17 00:48 98.2 74 20 174/95 (121) 93 08/08/17 20:48 95 08/08/17 20:31 97.9 91 20 189/102 (131) 95 08/08/17 16:00 97.4 79 18 189/91 (123) 95 I/O 08/08/17 08/08/17 08/08/17 08/09/17 08/09/17 08/09/17 06:59 14:59 22:59 06:59 14:59 22:59 Intake Total 480 ml Output Total 300 ml 320 ml Balance -300 ml 160 ml Intake Oral 480 ml Output Urine Total 300 ml 320 ml # Voids 1 3 # Bowel Movements 1 Result Diagram: 08/07/17184708/07/171847 Imaging Last Impressions Head Magnetic Resonance Angiography 08/08/17 0000 Signed Impressions: CONCLUSION: 1. Exam degraded by motion with no significant stenosis or aneurysm identified . Carotid Artery Ultrasound 08/08/17 Signed Impressions: CONCLUSION: 1. Right Internal Carotid Artery: Severe stenosis at the proximal right quality assurance intern al carotid artery. This could be better evaluated with CTA carotids. 2. Left Internal Carotid Artery: No hemodynamically significant stenosis. Brain MRI 08/08/17 0000 Signed Impressions: CONCLUSION: 1. Multiple infarcts in the right MCA distribution predominantly posteriorly a s above. 2. Mild to moderate chronic white matter ischemic changes in the periventricul ar region. Head CT 08/07/171903 Signed Impressions: CONCLUSION: 1. Wedge-shaped area of decreased attenuation in the right parietal lobe most characteristic of a subacute or remote infarct. Also remote right lacunar infar ct in the basal ganglia. No hemorrhage or mass effect. Chest X-Ray 08/07/171903 Signed Impressions: CONCLUSION: No active disease. Cervical Spine CT 08/07/171903 Signed Impressions: CONCLUSION: 1. Moderate degenerative change. Previous fusion at C6-7. No significant canal stenosis. Objective Remarks GENERAL: No distress. HEENT: PERRLA, EOMI. No scleral icterus or conjunctival pallor. No lid lag or facial droop. CARDIOVASCULAR: Regular rate and rhythm. No obvious murmurs to auscultation. No chest tenderness to palpation. RESPIRATORY: Mild wheezing bilaterally. GASTROINTESTINAL: Abdomen soft, non-tender, nondistended. BS normal. MUSCULOSKELETAL: Extremities without clubbing, cyanosis, or edema. No obvious deformities. NEUROLOGICAL: Awake, alert and oriented x4. LUE w/ improving tremor, strength 3/ 5, all other extremities 5/5. Moving both upper and lower extremities spontaneously. Sensation intact. A/P Problem List: (1) CVA (cerebral vascular accident) ICD Code: I63.9 - Cerebral infarction, unspecified Status: Acute (2) HTN (hypertension) ICD Code: I10 - Essential (primary) hypertension (3) COPD (chronic obstructive pulmonary disease) ICD Code: J44.9 - Chronic obstructive pulmonary disease, unspecified (4) Cocaine abuse ICD Code: F14.10 - Cocaine abuse, uncomplicated (5) Tobacco abuse ICD Code: Z72.0 - Tobacco use Assessment and Plan CVA Acute onset LUE weakness/tremor w/ slurred speech x1 day. CT Head w/ subacute/ remote infarct to right parietal lobe and remote right lacunar infarct basal ganglia. UDS + cocaine, opiates and cannabinoids. Neurology consultation appreciated. A1c 5.7%. Right carotid with severe stenosis. MRI: Multiple infarcts in the right MCA distribution, predominantly posteriorly. - Neuro checks. - follow up with neurology. May need CTA of carotids. - PT/ OT/ ST. - ASA, statin. - echo pending. - blood pressure control. Hypertensive emergency S/p permissive HTN in light of CVA. - start lisinopril 10 mg daily. Adjust as needed. - Vasotec as needed. COPD Mild wheezing on exam. CXR clear. Pt denies dyspnea. - DuoNeb prn. - O2 as needed. Cocaine Abuse Admits to recent use 2 days prior to admission. - pt counselled. - Ativan prn. Tobacco Abuse Counselled. - No NicoDerm to avoid vasoconstriction. - Ativan prn Renal insufficiency GFR 61 on admission. - IVFs and avoid nephrotoxins. - BMP in AM. DVT Prophylaxis: Lovenox Problem Qualifiers (1) CVA (cerebral vascular accident): Qualified Codes: I63.9 - Cerebral infarction, unspecified Errol Sandoval DO Aug 09, 2017 14:05
[2017-08-09] MEDS: ENALAPRILAT 1.25 MG/ML VIAL IV PUSH PRN (16:42)
[2017-08-09] MEDS: QUEtiapine FUMARATE 100 MG TAB PO SCH (20:07)
[2017-08-09] MEDS: PRAVASTATIN SOD 40 MG TAB PO SCH (20:07)
[2017-08-10] VITALS (8 sets, daily range): BP systolic 150–193; BP diastolic 72–99; PULSE 65–86; RESP 18–20; TEMP 97.5–98.3; O2SAT 94–98
[2017-08-10 04:39] LABS: HEMATOCRIT 42.6 % (39.0-51.0); HEMOGLOBIN 14.6 GM/DL (13.0-17.0); MEAN CELL VOLUME 89.2 FL (80.0-100.0); MEAN CORPUSCULAR HEMOGLOBIN 30.7 PG (27.0-34.0); MEAN CORPUSCULAR HGB CONC 34.4 % (32.0-36.0); MEAN PLATELET VOLUME 10.2 FL (7.0-11.0); PLATELET COUNT 228 TH/MM3 (150-450); RED BLOOD COUNT 4.77 MIL/MM3 (4.50-5.90); RED CELL DISTRIBUTION WIDTH 14.4 % (11.6-17.2); WHITE BLOOD COUNT 7.4 TH/MM3 (4.0-11.0)
[2017-08-10 04:57] LABS: BICARBONATE 26.7 MEQ/L (21.0-32.0); CALCIUM 8.8 MG/DL (8.5-10.1); CREATININE 1.28 MG/DL (0.60-1.30); MAGNESIUM 2.2 MG/DL (1.5-2.5)
[2017-08-10] MEDS: ACETAMINOPHEN/HYDROcodone 325 MG/10 MG TAB PO PRN ×4 (05:54→22:01)
--- NOTE | 2017-08-10 07:58 | HHI.PR ---
Review/Management Diagnosis right hemiphere strokes. Right carotid stenosis Plan CTA carotids to further evaluate degree of stenosis vascular surgery consult Diagnosis/Plan: Subjective Subjective Comments No acute events reported Active Medications Current Medications Medications (Trade) Dose Ordered Sig/Venita Route Start Time Stop Time Status Last Admin (NS Flush) 2 ml BID IV FLUSH 08/07/17 21:00 08/09/17 09:38 (NS Flush) 2 ml UNSCH PRN IV FLUSH 08/07/17 20:45 Sodium Chloride 1,000 ml @ 70 mls/hr [id number] IV 08/07/17 20:41 08/09/17 20:08 (Vasotec Inj) 1.25 mg Q4H PRN IV PUSH 08/07/17 20:45 08/09/17 16:42 (Pravachol) 40 mg HS PO 08/07/17 21:00 08/09/17 20:07 (Duoneb Neb) 1 ampule Q4HR NEB PRN NEB 08/07/17 21:15 (SEROquel) 100 mg HS PO 08/08/17 21:00 08/09/17 20:07 (Prinivil) 10 mg DAILY PO 08/08/17 11:30 08/09/17 09:38 (Hostetter 10-325 Mg) 1 tab Q4H PRN PO 08/08/17 12:00 08/10/17 05:54 (Lovenox Inj) 40 mg Q24H SQ 08/08/17 12:00 08/09/17 11:34 (NS Flush) 2 ml BID IV FLUSH 08/08/17 21:00 08/09/17 09:37 (NS Flush) 2 ml UNSCH PRN IV FLUSH 08/08/17 14:15 (Aspirin) 325 mg DAILY PO 08/08/17 14:15 08/09/17 09:38 Allergies Allergies Coded Allergies No Known Allergies (Verified Allergy, Unknown, 08/07/17) Exam I&O / VS Vital Signs Date Time Temp Pulse Resp B/P (MAP) Pulse Ox O2 Delivery O2 Flow Rate FiO2 08/10/17 04:00 98.2 86 18 181/95 (123) 95 08/10/17 00:00 97.7 70 18 178/99 (125) 94 08/09/17 23:45 73 08/09/17 20:00 98.1 79 18 172/95 (120) 94 08/09/17 19:51 81 08/09/17 16:00 98.1 74 18 194/100 (131) 96 08/09/17 14:37 96 21 08/09/17 12:49 97.9 84 20 95 08/09/17 12:00 78 08/09/17 08:00 62 08/09/17 08:00 97.6 83 18 129/83 (98) 95 Objective Radiology Results MRI--several strokes right hemisphere carotid US is consistent with significant right carotid stenosis, clear on left Micro and Labs Laboratory Tests Test 08/09/17 10:41 08/10/17 04:20 White Blood Count 7.4 Red Blood Count 4.77 Hemoglobin 14.6 Hematocrit 42.6 Mean Corpuscular Volume 89.2 Mean Corpuscular Hemoglobin 30.7 Mean Corpuscular Hemoglobin Concent 34.4 Red Cell Distribution Width 14.4 Platelet Count 228 Mean Platelet Volume 10.2 Blood Urea Nitrogen 14 Creatinine 1.28 Random Glucose 123 Calcium Level 8.8 Magnesium Level 2.2 Sodium Level 143 Potassium Level 3.9 Chloride Level 107 Carbon Dioxide Level 26.7 Anion Gap 9 Estimat Glomerular Filtration Rate 58 Des Hood MD PhD Aug 10, 2017 07:58
[2017-08-10] MEDS: ASPIRIN 325 MG TAB PO SCH (09:13)
[2017-08-10] MEDS: LISINOPRIL 10 MG TAB PO SCH (09:13)
[2017-08-10] MEDS ORDERED: LISINOPRIL 10 MG TAB PO ONE (10:45)
--- NOTE | 2017-08-10 10:56 | PD.VS.CON ---
History of Present Illness Chief Complaint: carotid stenosis Consult Requested by: Medical service Neurology History of Present Illness 57 yo male with 24-48 h history of L UE dysfunction and tremors. Noticed it first when he could not grab his cigarettes. Slightly improved since then but still altered motor function. No other deficits. Noted that this "may have happened" 2-3 months ago. Patient denies any other medical troubles and takes only pain medications. Past/Family/Social History Past Medical History none per patient. According to records: HTN, XOL ? bipolar substance abuse COPD Past Surgical History neck surgery Social History + tobacco Family History NC Home Medications Active Scripts Methocarbamol (Robaxin) 750 Mg Tab, 750 MG PO QID for Muscle Spasm, #40 TAB 0 Refills Prov:Rajeev Davenport MD 04/03/17 Reported Medications Quetiapine (Seroquel) 100 Mg Tab, 100 MG PO HS, #30 TAB 0 Refills 08/07/17 Hydrocodone-Acetaminophen (Hydrocodone-Acetaminophen) 10-325 mg Tab, 1 TAB PO Q6H Y for PAIN, TAB 0 Refills 11/25/16 Discontinued Scripts Ibuprofen (Ibuprofen) 600 Mg Tab, 600 MG PO TID for Pain, #30 TAB 0 Refills Prov:Rajeev Davenport MD 04/03/17 Ibuprofen (Ibuprofen) 800 Mg Tab, 800 MG PO Q6HR Y for PAIN, #30 TAB 0 Refills Prov:Louise Prado 11/25/16 Coded Allergies: No Known Allergies (Verified Allergy, Unknown, 08/07/17) Review of Systems Constitutional: DENIES: Fever, Chills Musculoskeletal: COMPLAINS OF: Neck pain Neurologic: COMPLAINS OF: Tremor Psychiatric: DENIES: Anxiety Physical Exam Vitals/I&O Date Time Temp Pulse Resp B/P (MAP) Pulse Ox O2 Delivery O2 Flow Rate FiO2 08/10/17 08:00 97.5 70 18 193/97 (129) 95 08/10/17 04:00 98.2 86 18 181/95 (123) 95 08/10/17 00:00 97.7 70 18 178/99 (125) 94 08/09/17 23:45 73 08/09/17 20:00 98.1 79 18 172/95 (120) 94 08/09/17 19:51 81 08/09/17 16:00 98.1 74 18 194/100 (131) 96 08/09/17 14:37 96 21 08/09/17 12:49 97.9 84 20 95 08/09/17 12:00 78 Neuro: alert, DISLA HEENT: NC/AT slight lip asymmetry but CN otherwise intact Neck: trachea midline Heart: reg rate, no M Lungs: coarse but equal Vascular: palpable UE pulses Extremities: LUE with good mri specialist strength but diminished proximal muscle weakness + tremors L UE Laboratory Tests Test 08/10/17 04:20 White Blood Count 7.4 Red Blood Count 4.77 Hemoglobin 14.6 Hematocrit 42.6 Mean Corpuscular Volume 89.2 Mean Corpuscular Hemoglobin 30.7 Mean Corpuscular Hemoglobin Concent 34.4 Red Cell Distribution Width 14.4 Platelet Count 228 Mean Platelet Volume 10.2 Blood Urea Nitrogen 14 Creatinine 1.28 Random Glucose 123 Calcium Level 8.8 Magnesium Level 2.2 Sodium Level 143 Potassium Level 3.9 Chloride Level 107 Carbon Dioxide Level 26.7 Anion Gap 9 Estimat Glomerular Filtration Rate 58 Reviewed duplex: velocities c/w 50-79% R ICA stenosis Assessment and Plan Plan Acute CVA by clinical history and possibly more remote by cranial images 1. CTA neck as ordered 2. ASA/statin 3. likely to need prophylactic CEA - will discuss with neurology timing if indicated Aston Wise MD FACS RPVI usability architect [facility] - [facility] at [facility] [phone] Aston Wise MD Aug 10, 2017 10:55
[2017-08-10] MEDS ORDERED: IOHEXOL 350 MG/ML 10 ML VIAL (for RAD DIAG) IVCONTRAST ONE (11:22)
--- NOTE | 2017-08-10 12:27 | RADRPT ---
EXAM DATE: 08/10/2017 12:12 PM EDT AGE/SEX: 57 years / Male INDICATIONS: Right carotid stenosis, right hemisphere CVA CLINICAL DATA: This is the patient's initial encounter. Patient reports that signs and symptoms have been present for 2 days and indicates a pain score of 0/10. MEDICAL/SURGICAL HISTORY: Hypertension. Chronic obstructive pulmonary disease. Fusion, cervical. RADIATION DOSE: 28.41 CTDI (mGy) COMPARISON: No prior exams available for comparison. TECHNIQUE: Volumetric scanning was performed using a multirow detector CT scanner during bolus infus ion of 71 ml Omnipaque 350 (iohexol) nonionic water-soluble contrast as a single exam dose. The da ta was postprocessed with a variety of visualization algorithms including full-volume maximum intensi ty projection, multiplanar sliding thin-slab reformation, curved-planar reformation, and surface-rend ering techniques. Using automated exposure control and adjustment of the mA and/or kV according to p atient size, radiation dose was kept as low as reasonably achievable to obtain optimal diagnostic lucia lity images. Elevated flow velocities and ICA/CCA ratios have been found to correlate with increased degrees of ve ssel stenosis, calculated as percentage of diameter relative to a normal segment of distal ICA/CCA. FINDINGS: There is mild atherosclerotic disease at the origin of the major vessels from the aortic arch without any significant stenosis. There is mild atherosclerotic disease at the origin of the left internal carotid artery with an area of soft plaque and ulceration without any significant stenosis. There is extensive atelectatic plaquing at the origin of the right internal carotid artery which is t he appearance of soft plaque with large areas of ulcerations and maximum stenosis on the order of 75- 80%. The vertebral arteries appear intact. CONCLUSION: 1. High-grade stenosis at the origin of the right internal carotid artery with extensive soft plaque and large ulcerations. 2. Slight atherosclerotic disease with soft plaque and mild ulceration at the origin of the left ICA without any significant stenosis. Electronically signed by: Low Mccloud MD 08/10/2017 12:26 PM EDT
[2017-08-10] MEDS: ENOXAPARIN SODIUM 40 MG/0.4 ML SYRINGE SQ SCH (12:56)
--- NOTE | 2017-08-10 14:08 | HHI.PR ---
Subjective Remarks The patient said that he wanted to go home. He understood that he needed to stay in the hospital for further intervention. He said that his blood pressure is always poorly controlled. He says that he is going to try to stay away from people who are using cocaine. He says he is not a drinker. Objective Vitals Vital Signs Date Time Temp Pulse Resp B/P (MAP) Pulse Ox O2 Delivery O2 Flow Rate FiO2 08/10/17 12:04 95 21 08/10/17 08:00 97.5 70 18 193/97 (129) 95 08/10/17 04:00 98.2 86 18 181/95 (123) 95 08/10/17 00:00 97.7 70 18 178/99 (125) 94 08/09/17 23:45 73 08/09/17 20:00 98.1 79 18 172/95 (120) 94 08/09/17 19:51 81 08/09/17 16:00 98.1 74 18 194/100 (131) 96 08/09/17 14:37 96 21 I/O 08/09/17 08/09/17 08/09/17 08/10/17 08/10/17 08/10/17 06:59 14:59 22:59 06:59 14:59 22:59 Intake Total 720 ml Balance 720 ml Intake Oral 720 ml # Voids 5 2 Result Diagram: 08/10/170 08/10/17 0420 Imaging Last Impressions Neck CTA 08/10/17 0000 Signed Impressions: CONCLUSION: 1. High-grade stenosis at the origin of the right internal carotid artery with extensive soft plaque and large ulcerations. 2. Slight atherosclerotic disease with soft plaque and mild ulceration at the origin of the left ICA without any significant stenosis. Head Magnetic Resonance Angiography 08/08/17 0000 Signed Impressions: CONCLUSION: 1. Exam degraded by motion with no significant stenosis or aneurysm identified . Carotid Artery Ultrasound 08/08/17 Signed Impressions: CONCLUSION: 1. Right Internal Carotid Artery: Severe stenosis at the proximal right internal communications specialist al carotid artery. This could be better evaluated with CTA carotids. 2. Left Internal Carotid Artery: No hemodynamically significant stenosis. Brain MRI 08/08/17 0000 Signed Impressions: CONCLUSION: 1. Multiple infarcts in the right MCA distribution predominantly posteriorly a s above. 2. Mild to moderate chronic white matter ischemic changes in the periventricul ar region. Head CT 08/07/171903 Signed Impressions: CONCLUSION: 1. Wedge-shaped area of decreased attenuation in the right parietal lobe most characteristic of a subacute or remote infarct. Also remote right lacunar infar ct in the basal ganglia. No hemorrhage or mass effect. Chest X-Ray 08/07/171903 Signed Impressions: CONCLUSION: No active disease. Cervical Spine CT 08/07/171903 Signed Impressions: CONCLUSION: 1. Moderate degenerative change. Previous fusion at C6-7. No significant canal stenosis. Objective Remarks GENERAL: No distress. HEENT: PERRLA, EOMI. No scleral icterus or conjunctival pallor. No lid lag or facial droop. CARDIOVASCULAR: Regular rate and rhythm. No obvious murmurs to auscultation. No chest tenderness to palpation. RESPIRATORY: Mild wheezing bilaterally. GASTROINTESTINAL: Abdomen soft, non-tender, nondistended. BS normal. MUSCULOSKELETAL: Extremities without clubbing, cyanosis, or edema. No obvious deformities. NEUROLOGICAL: Awake, alert and oriented x4. LUE w/ improving tremor, strength 3/ 5, all other extremities 5/5. Moving both upper and lower extremities spontaneously. Sensation intact. A/P Problem List: (1) CVA (cerebral vascular accident) ICD Code: I63.9 - Cerebral infarction, unspecified Status: Acute (2) HTN (hypertension) ICD Code: I10 - Essential (primary) hypertension (3) COPD (chronic obstructive pulmonary disease) ICD Code: J44.9 - Chronic obstructive pulmonary disease, unspecified (4) Cocaine abuse ICD Code: F14.10 - Cocaine abuse, uncomplicated (5) Tobacco abuse ICD Code: Z72.0 - Tobacco use Assessment and Plan CVA Acute onset LUE weakness/ tremor w/ slurred speech x1 day. CT Head w/ subacute/ remote infarct to right parietal lobe and remote right lacunar infarct basal ganglia. UDS + cocaine, opiates and cannabinoids. Neurology consultation appreciated. A1c 5.7%. Right carotid with severe stenosis. MRI: Multiple infarcts in the right MCA distribution, predominantly posteriorly. CTA carotids : High-grade stenosis at the origin of the right internal carotid artery with extensive soft plaque and large ulcerations; Slight atherosclerotic disease with soft plaque and mild ulceration at the origin of the left ICA without any significant stenosis. Vascular surgery consult appreciated. Left arm tremor is improved. - Neuro checks. - follow up with neurology. - likely CEA per vascular surgery. - PT/ OT/ ST. - ASA, statin. - echo pending. - blood pressure control. Hypertensive emergency S/p permissive HTN in light of CVA. Still poorly controlled. - increase lisinopril to 20 mg daily. Adjust as needed. - add amlodipine 5 mg daily. - Vasotec as needed. COPD Mild wheezing on exam. CXR clear. - DuoNeb prn. - O2 as needed. - incentive spirometry. Cocaine Abuse Admits to recent use 2 days prior to admission. - pt counselled. - Ativan prn. Tobacco Abuse Counselled. - No NicoDerm to avoid vasoconstriction. - Ativan prn Renal insufficiency GFR 61 on admission. - IVFs and avoid nephrotoxins. - BMP in AM. DVT Prophylaxis: Lovenox Discharge Planning Will likely need CEA per vascular surgery. Continue titrating blood pressure meds. Problem Qualifiers (1) CVA (cerebral vascular accident): Qualified Codes: I63.9 - Cerebral infarction, unspecified Errol Sanodval DO Aug 10, 2017 14:08
[2017-08-10] MEDS ORDERED: RESP: ALBUTEROL 2.5 MG/IPRATROPIUM 0.5 MG NEB (SCH) NEB ONE (14:15)
[2017-08-10 15:45] LABS: CARDIOLIPIN IGG AB <9.4 GPL; CARDIOLIPIN IGM AB <9.4 MPL
[2017-08-10] MEDS: amLODIPine BESYLATE 5 MG TAB PO SCH (16:12)
--- NOTE | 2017-08-10 17:12 | ECHRPT ---
Indication: cva/tia CONCLUSIONS Normal left ventricular size. Wall thickness is normal. The left ventricular systolic function is low normal with an estimated ejection fraction in the rang e of 50- 55%. Mitral annular calcification is present. The pulmonary valve is not well visualized. BP: / HR: Rhythm: Technical Quality: FINDINGS LEFT VENTRICLE Normal left ventricular size. Wall thickness is normal. The left ventricular systolic function is low normal with an estimated ejection fraction in the rang e of 50- 55%. RIGHT VENTRICLE Normal right ventricular size and systolic function. LEFT ATRIUM The left atrial size is normal. RIGHT ATRIUM The right atrial size is normal. ATRIAL SEPTUM Normal atrial septal thickness without atrial level shunting by limited color doppler interrogation. AORTA The aortic root and proximal ascending aorta are normal in size on limited imaging. MITRAL VALVE Mitral annular calcification is present. AORTIC VALVE Trileaflet aortic valve. No aortic valve stenosis or regurgitation. TRICUSPID VALVE Structurally normal tricuspid valve. No tricuspid valve stenosis or regurgitation. PULMONARY VALVE The pulmonary valve is not well visualized. VESSELS The inferior vena cava is normal in size. PERICARDIUM No pericardial effusion. Marcelo Eagle MD, FACC (Electronically Signed) Final Date:10 August 2017 17:11
[2017-08-10] MEDS: SODIUM CHLORIDE 0.9% FLUSH 10 ML FLUSH IV FLUSH SCH ×2 (21:00→22:02)
[2017-08-10] MEDS: SODIUM CHLOR 0.45% 1000 ML INJ 1,000 ML IV SCH ×2 (21:30→22:03)
--- NOTE | 2017-08-10 21:30 | MB ---
cc: Dylan Goncalves MD, Slobodan MD DATE: 08/10/2017 REASON FOR CONSULTATION: Right tight internal carotid artery stenosis, weakness of the left hand and arm. HISTORY OF PRESENT ILLNESS: This 57-year-old male presents to the emergency room stating that about 4 or 5 days ago, he started having weakness in his left hand and could not quite use it. He also has tremors in both hands, left more than the right. He also states about 4 months ago the same situation developed, but the patient never went to the doctor. He was admitted, worked up, found to have a very tight right internal carotid artery stenosis and old right strokes, hence, the consultation. PAST MEDICAL HISTORY: Hyperlipidemia, hypertension, COPD and bipolar disorder. PAST SURGICAL HISTORY: The patient had left-sided anterior fusion about 20 years ago for some injury. He has been disabled since. SOCIAL HISTORY: The patient admits to using cocaine and smokes about 1 to 1-1/2 packs a day of cigarettes. PHYSICAL EXAMINATION: GENERAL: Reveals a 57-year-old male, appearing older than his actual age. HEENT: Normocephalic. No trauma to the head. Pupils are equal, reactive. Extraocular muscles intact. Speech is normal. C2-12 are normal. NECK: Bilateral carotid pulses and faint right-sided bruit, but maybe 3-6. CHEST: Bilateral breath sounds, decreased over both lung sorensen consistent with moderate degree of COPD and chest wall musculature atrophy consistent with pulmonary cachexia. HEART: Regular rhythm. ABDOMEN: Soft, active bowel sounds. No masses. No rebound, no guarding. EXTREMITIES: The patient has palpable femoral pulses, weak palpable popliteal pulses and dorsalis pedis and posterior tibial are palpable bilateral. No signs of acute vascular deficit. The patient states also that he has some problem walking distance. NEUROLOGIC: C2-12 normal. [place] coma scale is 15. The patient indeed has tremulousness in both upper extremities, but more on the left side. He also has weak grasp on the left side, although the right side is better. Reflexes are normal. Babinski is negative. IMPRESSION: I reviewed laboratory and diagnostic procedures. The patient has very tight right internal carotid artery stenosis, probably about 80% with an ulcerated plaque and I can guess where the segment from the ulcerated site went. The patient on MRI of the brain, has old and subacute infarcts in the left parietal hemisphere consistent with a perfusion of the right middle cerebral artery. At this point, the patient's blood pressure has to be brought under control, but he should definitely have carotid endarterectomy at this admission because this is fairly tight and, with the patient's noncompliant lifestyle, I do not think we will not see him again until he gets a massive stroke. So I believe, given the circumstances, the patient should have carotid surgery at this admission. Probably we will schedule him for the end of the week. We will discuss with Dr. Hood. I thank you very much for referral. MD DEVONTE Ugarte/ , 08:37 PM , 09:29 PM
[2017-08-10] MEDS: PRAVASTATIN SOD 40 MG TAB PO SCH (22:01)
[2017-08-10] MEDS: QUEtiapine FUMARATE 100 MG TAB PO SCH (22:01)
[2017-08-11] VITALS (9 sets, daily range): BP systolic 162–182; BP diastolic 79–96; PULSE 58–133; RESP 18–20; TEMP 97.8–98.1; O2SAT 94–98
[2017-08-11] MEDS: ACETAMINOPHEN/HYDROcodone 325 MG/10 MG TAB PO PRN ×5 (02:21→22:04)
[2017-08-11 07:51] LABS: DRVVT 1:1 MIX ND (CORRECTED); DRVVT CONFIRM NEGATIVE (NEGATIVE); HEXAGONAL PHASE CONFIRM ND (NEGATIVE)
[2017-08-11] MEDS: SODIUM CHLORIDE 0.9% FLUSH 10 ML FLUSH IV FLUSH SCH ×2 (09:00→21:00)
[2017-08-11] MEDS: amLODIPine BESYLATE 5 MG TAB PO SCH (09:22)
[2017-08-11] MEDS: LISINOPRIL 10 MG TAB PO SCH (09:22)
[2017-08-11] MEDS: ASPIRIN 325 MG TAB PO SCH (09:23)
--- NOTE | 2017-08-11 12:11 | HHI.PR ---
Subjective Remarks 12 The patient said that he wanted to go home. He understood that he needed to stay in the hospital for further intervention. He said that his blood pressure is always poorly controlled. He says that he is going to try to stay away from people who are using cocaine. He says he is not a drinker. 08-11 patient states he is scheduled for surgery tomorrow with Dr. Goncalves regarding the right ICA States he is moving his left side better Denies any shortness of breath Denies any chest pain Denies any palpitations discussed with patient and RN and case management associate We will get a.m. labs Objective Vitals Vital Signs Date Time Temp Pulse Resp B/P (MAP) Pulse Ox O2 Delivery O2 Flow Rate FiO2 08/11/17 08:04 96 08/11/17 08:00 97.8 78 20 171/94 (119) 94 08/11/17 07:30 58 08/11/17 04:00 97.9 63 20 162/79 (106) 96 08/11/17 03:49 18 08/11/17 00:00 98.1 88 20 171/96 (121) 98 166/80 (108) 08/10/17 20:00 98.3 82 20 150/72 (98) 95 08/10/17 16:46 97.9 65 20 188/84 (118) 98 08/10/17 16:04 98 21 I/O 08/10/17 08/10/17 08/10/17 08/11/17 08/11/17 08/11/17 07:00 15:00 23:00 07:00 15:00 23:00 Intake Total 240 ml Output Total 0 ml Balance 240 ml Intake Oral 240 ml Output Urine Total 0 ml Stool Total 0 ml # Voids 2 2 # Bowel Movements 1 Result Diagram: 08/10/17 0420 08/10/17 0420 Other Results Laboratory Tests Test 08/09/17 10:41 08/10/17 04:20 Thrombin Time sec Lupus Anticoagulant Lupus Anticoagulant PTT Screen 34 seconds Dil Sav Viper Venom Time Screen 46 seconds Dil Sav Viper Venom Conf (Lupus NEGATIVE Dil Sav Viper Venom Time Mix Hexagonal Phase Confirmation Phospholipid IgG Antibody <9.4 GPL Phospholipid IgM Antibody <9.4 MPL White Blood Count 7.4 TH/MM3 Red Blood Count 4.77 MIL/MM3 Hemoglobin 14.6 GM/DL Hematocrit 42.6 % Mean Corpuscular Volume 89.2 FL Mean Corpuscular Hemoglobin 30.7 PG Mean Corpuscular Hemoglobin Concent 34.4 % Red Cell Distribution Width 14.4 % Platelet Count 228 TH/MM3 Mean Platelet Volume 10.2 FL Blood Urea Nitrogen 14 MG/DL Creatinine 1.28 MG/DL Random Glucose 123 MG/DL Calcium Level 8.8 MG/DL Magnesium Level 2.2 MG/DL Sodium Level 143 MEQ/L Potassium Level 3.9 MEQ/L Chloride Level 107 MEQ/L Carbon Dioxide Level 26.7 MEQ/L Anion Gap 9 MEQ/L Estimat Glomerular Filtration Rate 58 ML/MIN Imaging Last Impressions Neck CTA 08/10/17 Signed Impressions: CONCLUSION: 1. High-grade stenosis at the origin of the right internal carotid artery with extensive soft plaque and large ulcerations. 2. Slight atherosclerotic disease with soft plaque and mild ulceration at the origin of the left ICA without any significant stenosis. Head Magnetic Resonance Angiography 08/08/17 Signed Impressions: CONCLUSION: 1. Exam degraded by motion with no significant stenosis or aneurysm identified . Carotid Artery Ultrasound 08/08/17 Signed Impressions: CONCLUSION: 1. Right Internal Carotid Artery: Severe stenosis at the proximal right internal salesperson al carotid artery. This could be better evaluated with CTA carotids. 2. Left Internal Carotid Artery: No hemodynamically significant stenosis. Brain MRI 08/08/17 Signed Impressions: CONCLUSION: 1. Multiple infarcts in the right MCA distribution predominantly posteriorly a s above. 2. Mild to moderate chronic white matter ischemic changes in the periventricul ar region. Head CT 08/07/171903 Signed Impressions: CONCLUSION: 1. Wedge-shaped area of decreased attenuation in the right parietal lobe most characteristic of a subacute or remote infarct. Also remote right lacunar infar ct in the basal ganglia. No hemorrhage or mass effect. Chest X-Ray 08/07/171903 Signed Impressions: CONCLUSION: No active disease. Cervical Spine CT 08/07/171903 Signed Impressions: CONCLUSION: 1. Moderate degenerative change. Previous fusion at C6-7. No significant canal stenosis. Objective Remarks GENERAL: Awake alert and oriented 3 talkative and cooperative-still has some left upper extremity weakness SKIN: Warm and dry. HEAD: Atraumatic. Normocephalic. EYES: Pupils equal and round. No scleral icterus. No injection or drainage. ENT: No nasal bleeding or discharge. Mucous membranes pink and moist. NECK: Trachea midline. No JVD. CARDIOVASCULAR: Regular rate and rhythm. S1-S2 no S3 or S4 RESPIRATORY: No accessory muscle use. Clear to auscultation. Breath sounds equal bilaterally. GASTROINTESTINAL: Abdomen soft, non-tender, nondistended. Hepatic and splenic margins not palpable. MUSCULOSKELETAL: Extremities without clubbing, cyanosis, or edema. No obvious deformities. NEUROLOGICAL: Awake and alert. No obvious cranial nerve deficits. Motor grossly within normal limits. Five out of 5 muscle strength in the arms and legs -- left upper extremity with maybe 4 out of 5 motor strength. Normal speech. PSYCHIATRIC: Appropriate mood and affect; insight and judgment normal. Medications and IVs Current Medications Sodium Chloride (NS Flush) 2 ml UNSCH PRN IVF FLUSH AFTER USING IV ACCESS; Start 08/07/17 at 19:15; Stop 08/07/17 at 21:17; Status DC Sodium Chloride 1,000 ml @ 999 mls/hr BOLUS ONCE IV Last administered on at 20:11; Start 08/07/17 at 19:15; Stop 08/07/17 at 20:15; Status DC Aspirin (Aspirin Chew) 324 mg ONCE ONCE CHEW Last administered on 08/07/17at 20: 11; Start 08/07/17 at 20:15; Stop 08/07/17 at 20:16; Status DC Lorazepam (Ativan Inj) 1 mg ONCE ONCE IV PUSH Last administered on 08/07/17at 20 :29; Start 08/07/17 at 20:30; Stop 08/07/17 at 20:31; Status DC Sodium Chloride (NS Flush) 2 ml BID IV FLUSH Last administered on 08/09/17at 09: 38; Start 08/07/17 at 21:00; Stop 08/10/17 at 11:10; Status DC Sodium Chloride (NS Flush) 2 ml UNSCH PRN IV FLUSH FLUSH AFTER USING IV ACCESS ; Start 08/07/17 at 20:45; Stop 08/10/17 at 11:10; Status DC Sodium Chloride 1,000 ml @ 70 mls/hr [id number] IV Last administered on at 20:08; Start 08/07/17 at 20:41; Stop 08/10/17 at 11:18; Status DC Enalaprilat (Vasotec Inj) 1.25 mg Q4H PRN IV PUSH SBP>180, DBP>110 Last administered on 08/09/17at 16:42; Start 08/07/17 at 20:45 Aspirin (Aspirin Chew) 81 mg DAILY PO Last administered on 08/08/17at 09:00; Start 08/08/17 at 09:00; Stop 08/08/17 at 14:07; Status DC Pravastatin Sodium (Pravachol) 40 mg HS PO Last administered on 08/10/17at 22:01 ; Start 08/07/17 at 21:00 Insulin Aspart (NovoLOG SUPPLEMENTAL SCALE) 1 ACHS SQ ; Start 08/07/17 at 21:00; Stop 08/08/17 at 14:12; Status DC Dextrose (D50w (Vial) Inj) 50 ml UNSCH PRN IV PUSH HYPOGLYCEMIA-SEE COMMENTS; Start 08/07/17 at 20:45; Stop 08/08/17 at 14:12; Status DC Glucagon (Glucagon Inj) 1 mg UNSCH PRN OTHER HYPOGLYCEMIA-SEE COMMENTS; Start 08/07/17 at 20:45; Stop 08/08/17 at 14:12; Status DC Albuterol/ Ipratropium (Duoneb Neb) 1 ampule Q4HR NEB PRN NEB SOB/WHEEZING; Start 08/07/17 at 21:15 Quetiapine Fumarate (SEROquel) 100 mg HS PO Last administered on 08/10/17at 22: 01; Start 08/08/17 at 21:00 Lisinopril (Prinivil) 10 mg DAILY PO Last administered on 08/10/17at 09:13; Start 08/08/17 at 11:30; Stop 08/10/17 at 10:35; Status DC Acetaminophen/ Hydrocodone Bitart ([place] 10-325 Mg) 1 tab Q4H PRN PO pain 3-10 Last administered on 08/11/17at 06:16; Start 08/08/17 at 12:00 Morphine Sulfate (Morphine Inj) 4 mg ONCE ONCE IV PUSH Last administered on 12/16at 12:38; Start 08/08/17 at 12:00; Stop 08/08/17 at 12:01; Status DC Enoxaparin Sodium (Lovenox Inj) 40 mg Q24H SQ Last administered on 08/10/17at 12 :56; Start 08/08/17 at 12:00 Sodium Chloride (NS Flush) 2 ml BID IV FLUSH Last administered on 08/10/17at 21: 00; Start 08/08/17 at 21:00 Sodium Chloride (NS Flush) 2 ml UNSCH PRN IV FLUSH FLUSH AFTER USING IV ACCESS ; Start 08/08/17 at 14:15 Aspirin (Aspirin) 325 mg DAILY PO Last administered on 08/11/17at 09:23; Start 08/08/17 at 14:15 Insulin Aspart (NovoLOG SUPPLEMENTAL SCALE) 1 ACHS SQ ; Start 08/08/17 at 17:00 ; Stop 08/09/17 at 08:33; Status DC Dextrose (D50w (Vial) Inj) 50 ml UNSCH PRN IV PUSH HYPOGLYCEMIA-SEE COMMENTS; Start 08/08/17 at 14:15; Stop 08/08/17 at 14:15; Status DC Glucagon (Glucagon Inj) 1 mg UNSCH PRN OTHER HYPOGLYCEMIA-SEE COMMENTS; Start 08/08/17 at 14:15; Stop 08/08/17 at 14:15; Status DC Lisinopril (Prinivil) 20 mg DAILY PO Last administered on 08/11/17at 09:22; Start 08/11/17 at 09:00 Lisinopril (Prinivil) 10 mg ONCE ONCE PO Last administered on 08/10/17at 12:56 ; Start 08/10/17 at 10:45; Stop 08/10/17 at 11:09; Status DC Sodium Chloride 1,000 ml @ 100 mls/hr Q10H IV Last administered on 08/10/17at 21:30; Start 08/10/17 at 11:30; Stop 08/11/17 at 07:29; Status DC Iohexol (Omnipaque 350 Inj) 71 ml STK-MED ONCE IVCONTRAST Last administered on 08/10/17at 11:22; Start 08/10/17 at 11:22; Stop 08/10/17 at 11:23; Status DC Albuterol/ Ipratropium (Duoneb Neb) 1 ampule ONCE ONCE NEB Last administered on 08/10/17at 16:02; Start 08/10/17 at 14:15; Stop 08/10/17 at 14:16; Status DC Amlodipine Besylate (Norvasc) 5 mg DAILY PO Last administered on 08/11/17at 09: 22; Start 08/10/17 at 14:15 A/P Problem List: (1) CVA (cerebral vascular accident) ICD Code: I63.9 - Cerebral infarction, unspecified Status: Acute (2) HTN (hypertension) ICD Code: I10 - Essential (primary) hypertension (3) COPD (chronic obstructive pulmonary disease) ICD Code: J44.9 - Chronic obstructive pulmonary disease, unspecified (4) Cocaine abuse ICD Code: F14.10 - Cocaine abuse, uncomplicated (5) Tobacco abuse ICD Code: Z72.0 - Tobacco use Assessment and Plan CVA Acute onset LUE weakness/ tremor w/ slurred speech x1 day. CT Head w/ subacute/ remote infarct to right parietal lobe and remote right lacunar infarct basal ganglia. UDS + cocaine, opiates and cannabinoids. Neurology consultation appreciated. A1c 5.7%. Right carotid with severe stenosis. MRI: Multiple infarcts in the right MCA distribution, predominantly posteriorly. CTA carotids : High-grade stenosis at the origin of the right internal carotid artery with extensive soft plaque and large ulcerations; Slight atherosclerotic disease with soft plaque and mild ulceration at the origin of the left ICA without any significant stenosis. Vascular surgery consult appreciated. Left arm tremor is improved. - Neuro checks. - follow up with neurology. - likely CEA per vascular surgery. - PT/ OT/ ST. - ASA, statin. - echo pending. - blood pressure control. Hypertensive emergency S/p permissive HTN in light of CVA. Still poorly controlled. - increase lisinopril to 20 mg daily. Adjust as needed. - add amlodipine 5 mg daily. - Vasotec as needed. COPD Mild wheezing on exam. CXR clear. - DuoNeb prn. - O2 as needed. - incentive spirometry. Cocaine Abuse Admits to recent use 2 days prior to admission. - pt counselled. - Ativan prn. Tobacco Abuse Counselled. - No NicoDerm to avoid vasoconstriction. - Ativan prn Renal insufficiency GFR 61 on admission. - IVFs and avoid nephrotoxins. - BMP in AM. DVT Prophylaxis: Lovenox Discharge Planning Will need surgery before can be discharged Needs right ICA surgery Problem Qualifiers (1) CVA (cerebral vascular accident): Qualified Codes: I63.9 - Cerebral infarction, unspecified Cuate Carroll DO Aug 11, 2017 12:11
[2017-08-11] MEDS: ENOXAPARIN SODIUM 40 MG/0.4 ML SYRINGE SQ SCH (12:19)
--- NOTE | 2017-08-11 13:05 | PD.CAR.PN ---
CVT Progress Note Subjective/Hospital Course: 08/11/2017 As noted in my original consult, patient with severe right internal carotid artery stenosis and subacute ischemic and old parietal strokes in the confluence of the middle cerebral artery Based on all of the above in the degree of stenosis patient should have surgery at this admission All things equal for right carotid endarterectomy tomorrow I discussed risks and benefits with the patient Objective: Vital Signs Date Time Temp Pulse Resp B/P (MAP) Pulse Ox O2 Delivery O2 Flow Rate FiO2 08/11/17 08:04 96 08/11/17 08:00 97.8 78 20 171/94 (119) 94 08/11/17 07:30 58 08/11/17 04:00 97.9 63 20 162/79 (106) 96 08/11/17 03:49 18 08/11/17 00:00 98.1 88 20 171/96 (121) 98 166/80 (108) 08/10/17 20:00 98.3 82 20 150/72 (98) 95 08/10/17 16:46 97.9 65 20 188/84 (118) 98 08/10/17 16:04 98 21 Result Diagram: 08/10/17 0420 08/10/17 0420 Dylan Goncalves MD Aug 11, 2017 13:05
[2017-08-11] MEDS ORDERED: ceFAZolin 2 GM PREMIX 50 ML IV SCH (13:15)
[2017-08-11] MEDS ORDERED: METOPROLOL TARTRATE 25 MG TAB PO PRN (16:30)
[2017-08-11] MEDS ORDERED: POVIDONE IODINE 5% (ANTISEPSIS KIT) 4 APPLICATIONS EACH NARE PRN (16:30)
[2017-08-11] MEDS ORDERED: CHLORHEXIDINE GLUCONATE 2 % 1 PACK (2 CLOTHS) TOPICAL PRN (16:30)
[2017-08-11] MEDS ORDERED: SODIUM CHLORID 0.9% 500 ML IV PRN (16:30)
[2017-08-11] MEDS ORDERED: LACTATED RINGER'S 1000 ML IV PRN (16:30)
[2017-08-11] MEDS: ENALAPRILAT 1.25 MG/ML VIAL IV PUSH PRN (16:31)
--- NOTE | 2017-08-11 17:25 | HHI.PR ---
Review/Management Diagnosis right hemiphere strokes. Significant right carotid artery stenosis Plan I agree with plan to proceed with right carotid endarterectomy this week Diagnosis/Plan: Subjective Subjective Comments No acute events reported He feels left sided strength is improving Case discussed with Dr Goncalves Active Medications Current Medications Medications (Trade) Dose Ordered Sig/Venita Route Start Time Stop Time Status Last Admin (Vasotec Inj) 1.25 mg Q4H PRN IV PUSH 08/07/17 20:45 08/11/17 16:31 (Pravachol) 40 mg HS PO 08/07/17 21:00 08/10/17 22:01 (Duoneb Neb) 1 ampule Q4HR NEB PRN NEB 08/07/17 21:15 (SEROquel) 100 mg HS PO 08/08/17 21:00 08/10/17 22:01 ([place] 10-325 Mg) 1 tab Q4H PRN PO 08/08/17 12:00 08/11/17 16:26 (Lovenox Inj) 40 mg Q24H SQ 08/08/17 12:00 08/11/17 12:19 (NS Flush) 2 ml BID IV FLUSH 08/08/17 21:00 08/10/17 21:00 (NS Flush) 2 ml UNSCH PRN IV FLUSH 08/08/17 14:15 (Aspirin) 325 mg DAILY PO 08/08/17 14:15 08/11/17 09:23 (Prinivil) 20 mg DAILY PO 08/11/17 09:00 08/11/17 09:22 (Norvasc) 5 mg DAILY PO 08/10/17 14:15 08/11/17 09:22 Cefazolin Sodium/ Dextrose 50 ml @ 100 mls/hr SVP RESEARCH AND STRATEGIC ANALYSIS IV 08/11/17 13:15 08/14/17 13:14 Lactated Ringer's 1,000 ml @ 30 mls/hr Q24H PRN IV 08/11/17 16:30 08/14/17 16:29 Sodium Chloride 500 ml @ 30 mls/hr [id number] PRN IV 08/11/17 16:30 08/14/17 16:29 (Lopressor) 25 mg SVP [employer]EARCH AND STRATEGIC ANALYSIS PRN PO 08/11/17 16:30 08/14/17 16:29 (Betadine 5% Antisepsis Kit) 1 applic SVP [employer]EARCH AND STRATEGIC ANALYSIS PRN EACH NARE 08/11/17 16:30 08/14/17 16:29 (Chlorhexidine 2% Cloth) 3 pack SVP [employer]EARCH AND STRATEGIC ANALYSIS PRN TOPICAL 08/11/17 16:30 08/14/17 16:29 Allergies Allergies Coded Allergies No Known Allergies (Verified Allergy, Unknown, 08/07/17) Exam I&O / VS Vital Signs Date Time Temp Pulse Resp B/P (MAP) Pulse Ox O2 Delivery O2 Flow Rate FiO2 08/11/17 16:00 98.1 74 20 180/94 (122) 96 08/11/17 12:00 133 08/11/17 12:00 97.8 87 20 182/96 (124) 96 08/11/17 08:04 96 08/11/17 08:00 97.8 78 20 171/94 (119) 94 08/11/17 07:30 58 08/11/17 04:00 97.9 63 20 162/79 (106) 96 08/11/17 03:49 18 08/11/17 00:00 98.1 88 20 171/96 (121) 98 166/80 (108) 08/10/17 20:00 98.3 82 20 150/72 (98) 95 Exam Comments alert, speech intact, normal comprehension CN--mild LUMN CN 7 palsey otherwise normal MOTOR 4/5 LUE and LLE. Normal on right side Des Hood MD PhD Aug 11, 2017 17:25
[2017-08-11] MEDS: QUEtiapine FUMARATE 100 MG TAB PO SCH (22:03)
[2017-08-11] MEDS: PRAVASTATIN SOD 40 MG TAB PO SCH (22:03)
[2017-08-12] VITALS: BP 138/83; PULSE 80; RESP 17; TEMP 97.1; O2SAT 95
[2017-08-12] MEDS: ACETAMINOPHEN/HYDROcodone 325 MG/10 MG TAB PO PRN ×4 (04:43→21:45)
[2017-08-12 05:27] LABS: BASOPHIL # 0.1 TH/MM3 (0-0.2); BASOPHIL % 1.2 % (0.0-2.0); EOSINOPHIL # 0.3 TH/MM3 (0-0.4); EOSINOPHIL % 4.2 % (0.0-4.0); HEMATOCRIT 40.6 % (39.0-51.0); HEMOGLOBIN 13.8 GM/DL (13.0-17.0); LYMPHOCYTE # 2.5 TH/MM3 (1.0-4.8); MEAN CELL VOLUME 89.7 FL (80.0-100.0); MEAN CORPUSCULAR HEMOGLOBIN 30.5 PG (27.0-34.0); MEAN PLATELET VOLUME 10.8 FL (7.0-11.0); MONO % 10.1 % (0.0-8.0); MONOCYTE # 0.7 TH/MM3 (0-0.9); NEUT % 46.5 % (16.0-70.0); PLATELET COUNT 208 TH/MM3 (150-450); RED BLOOD COUNT 4.52 MIL/MM3 (4.50-5.90); RED CELL DISTRIBUTION WIDTH 13.9 % (11.6-17.2); WHITE BLOOD COUNT 6.5 TH/MM3 (4.0-11.0)
[2017-08-12 05:41] LABS: PROTHROMBIN TIME - PATIENT 10.2 SEC (9.8-11.6)
[2017-08-12 05:48] LABS: AST (GOT) 16 U/L (15-37); BICARBONATE 25.9 MEQ/L (21.0-32.0); BLOOD UREA NITROGEN 15 MG/DL (7-18); CALCIUM 8.9 MG/DL (8.5-10.1); CHLORIDE 108 MEQ/L (98-107); CREATININE 1.07 MG/DL (0.60-1.30); GLOMERULAR FILTRATION RATE 72 ML/MIN (>89); GLUCOSE,RANDOM 83 MG/DL (74-106); MAGNESIUM 2.5 MG/DL (1.5-2.5); SODIUM (NA) 141 MEQ/L (136-145)
[2017-08-12 05:49] LABS: ALT (GPT) 21 U/L (12-78); PHOSPHORUS 4.1 MG/DL (2.5-4.9)
[2017-08-12 05:58] LABS: ALKALINE PHOSPHATASE 56 U/L (45-117); FREE T4 0.98 NG/DL (0.76-1.46); TOTAL BILIRUBIN ADULT 0.3 MG/DL (0.2-1.0); TOTAL PROTEIN 6.8 GM/DL (6.4-8.2)
[2017-08-12] MEDS: ASPIRIN 325 MG TAB PO SCH (08:25)
[2017-08-12] MEDS: LISINOPRIL 10 MG TAB PO SCH (08:26)
[2017-08-12] MEDS: SODIUM CHLORIDE 0.9% FLUSH 10 ML FLUSH IV FLUSH SCH ×2 (08:26→21:00)
[2017-08-12] MEDS: amLODIPine BESYLATE 5 MG TAB PO SCH ×2 (08:26→21:05)
[2017-08-12 08:42] VITALS: BP 195/96; PULSE 67; RESP 20; TEMP 97.8; O2SAT 99
--- NOTE | 2017-08-12 09:36 | HHI.PR ---
Subjective Remarks -12 The patient said that he wanted to go home. He understood that he needed to stay in the hospital for further intervention. He said that his blood pressure is always poorly controlled. He says that he is going to try to stay away from people who are using cocaine. He says he is not a drinker. 08-11 patient states he is scheduled for surgery tomorrow with Dr. Goncalves regarding the right ICA States he is moving his left side better Denies any shortness of breath Denies any chest pain Denies any palpitations discussed with patient and RN and adult protective caseworker We will get a.m. labs 08-12 DW PATIENT TO HAVE SURGERY TODAY TO HAVE RIGHT ICA TODAY Objective Vitals Vital Signs Date Time Temp Pulse Resp B/P (MAP) Pulse Ox O2 Delivery O2 Flow Rate FiO2 08/12/17 08:42 97.8 67 20 195/96 (129) 99 08/12/17 00:00 97.1 80 17 138/83 (101) 95 08/11/17 20:00 97.8 81 18 164/82 (109) 96 08/11/17 16:08 70 08/11/17 16:00 98.1 74 20 180/94 (122) 96 08/11/17 12:00 133 08/11/17 12:00 97.8 87 20 182/96 (124) 96 I/O 08/11/17 08/11/17 08/11/17 08/12/17 08/12/17 08/12/17 06:59 14:59 22:59 06:59 14:59 22:59 Intake Total 240 ml 720 ml Output Total 0 ml Balance 240 ml 720 ml Intake Oral 240 ml 720 ml Output Urine Total 0 ml Stool Total 0 ml # Voids 2 3 6 # Bowel Movements 1 1 Result Diagram: 08/12/17 0435 08/12/17 0435 Other Results Laboratory Tests Test 08/09/17 10:41 08/10/17 04:20 08/12/17 04:35 Thrombin Time sec Lupus Anticoagulant Lupus Anticoagulant PTT Screen 34 seconds Dil Sav Viper Venom Time Screen 46 seconds Dil Sav Viper Venom Conf (Lupus NEGATIVE Dil Sav Viper Venom Time Mix Hexagonal Phase Confirmation Phospholipid IgG Antibody <9.4 GPL Phospholipid IgM Antibody <9.4 MPL White Blood Count 7.4 TH/MM3 6.5 TH/MM3 Red Blood Count 4.77 MIL/MM3 4.52 MIL/MM3 Hemoglobin 14.6 GM/DL 13.8 GM/DL Hematocrit 42.6 % 40.6 % Mean Corpuscular Volume 89.2 FL 89.7 FL Mean Corpuscular Hemoglobin 30.7 PG 30.5 PG Mean Corpuscular Hemoglobin Concent 34.4 % 34.0 % Red Cell Distribution Width 14.4 % 13.9 % Platelet Count 228 TH/MM3 208 TH/MM3 Mean Platelet Volume 10.2 FL 10.8 FL Blood Urea Nitrogen 14 MG/DL 15 MG/DL Creatinine 1.28 MG/DL 1.07 MG/DL Random Glucose 123 MG/DL 83 MG/DL Calcium Level 8.8 MG/DL 8.9 MG/DL Magnesium Level 2.2 MG/DL 2.5 MG/DL Sodium Level 143 MEQ/L 141 MEQ/L Potassium Level 3.9 MEQ/L 4.3 MEQ/L Chloride Level 107 MEQ/L 108 MEQ/L Carbon Dioxide Level 26.7 MEQ/L 25.9 MEQ/L Anion Gap 9 MEQ/L 7 MEQ/L Estimat Glomerular Filtration Rate 58 ML/MIN 72 ML/MIN Neutrophils (%) (Auto) 46.5 % Lymphocytes (%) (Auto) 38.0 % Monocytes (%) (Auto) 10.1 % Eosinophils (%) (Auto) 4.2 % Basophils (%) (Auto) 1.2 % Neutrophils # (Auto) 3.0 TH/MM3 Lymphocytes # (Auto) 2.5 TH/MM3 Monocytes # (Auto) 0.7 TH/MM3 Eosinophils # (Auto) 0.3 TH/MM3 Basophils # (Auto) 0.1 TH/MM3 CBC Comment DIFF FINAL Differential Comment Prothrombin Time 10.2 SEC Prothromb Time International Ratio 1.0 RATIO Total Protein 6.8 GM/DL Albumin 3.0 GM/DL Phosphorus Level 4.1 MG/DL Alkaline Phosphatase 56 U/L Aspartate Amino Transf (AST/SGOT) 16 U/L Alanine Aminotransferase (ALT/SGPT) 21 U/L Total Bilirubin 0.3 MG/DL Free Thyroxine 0.98 NG/DL Thyroid Stimulating Hormone 3rd Gen 2.010 uIU/ML Imaging Last Impressions Neck CTA 08/10/17 0000 Signed Impressions: CONCLUSION: 1. High-grade stenosis at the origin of the right internal carotid artery with extensive soft plaque and large ulcerations. 2. Slight atherosclerotic disease with soft plaque and mild ulceration at the origin of the left ICA without any significant stenosis. Head Magnetic Resonance Angiography 08/08/17 Signed Impressions: CONCLUSION: 1. Exam degraded by motion with no significant stenosis or aneurysm identified . Carotid Artery Ultrasound 08/08/17 Signed Impressions: CONCLUSION: 1. Right Internal Carotid Artery: Severe stenosis at the proximal right internal control consultant al carotid artery. This could be better evaluated with CTA carotids. 2. Left Internal Carotid Artery: No hemodynamically significant stenosis. Brain MRI 08/08/17 Signed Impressions: CONCLUSION: 1. Multiple infarcts in the right MCA distribution predominantly posteriorly a s above. 2. Mild to moderate chronic white matter ischemic changes in the periventricul ar region. Head CT 08/07/171903 Signed Impressions: CONCLUSION: 1. Wedge-shaped area of decreased attenuation in the right parietal lobe most characteristic of a subacute or remote infarct. Also remote right lacunar infar ct in the basal ganglia. No hemorrhage or mass effect. Chest X-Ray 08/07/171903 Signed Impressions: CONCLUSION: No active disease. Cervical Spine CT 08/07/171903 Signed Impressions: CONCLUSION: 1. Moderate degenerative change. Previous fusion at C6-7. No significant canal stenosis. Objective Remarks GENERAL: Awake alert and oriented 3 talkative and cooperative-still has some left upper extremity weakness SKIN: Warm and dry. HEAD: Atraumatic. Normocephalic. EYES: Pupils equal and round. No scleral icterus. No injection or drainage. ENT: No nasal bleeding or discharge. Mucous membranes pink and moist. NECK: Trachea midline. No JVD. CARDIOVASCULAR: Regular rate and rhythm. S1-S2 no S3 or S4 RESPIRATORY: No accessory muscle use. Clear to auscultation. Breath sounds equal bilaterally. GASTROINTESTINAL: Abdomen soft, non-tender, nondistended. Hepatic and splenic margins not palpable. MUSCULOSKELETAL: Extremities without clubbing, cyanosis, or edema. No obvious deformities. NEUROLOGICAL: Awake and alert. No obvious cranial nerve deficits. Motor grossly within normal limits. Five out of 5 muscle strength in the arms and legs -- left upper extremity with maybe 4 out of 5 motor strength. Normal speech. PSYCHIATRIC: Appropriate mood and affect; insight and judgment normal. Medications and IVs Current Medications Sodium Chloride (NS Flush) 2 ml UNSCH PRN IVF FLUSH AFTER USING IV ACCESS; Start 08/07/17 at 19:15; Stop 08/07/17 at 21:17; Status DC Sodium Chloride 1,000 ml @ 999 mls/hr BOLUS ONCE IV Last administered on at 20:11; Start 08/07/17 at 19:15; Stop 08/07/17 at 20:15; Status DC Aspirin (Aspirin Chew) 324 mg ONCE ONCE CHEW Last administered on 08/07/17at 20: 11; Start 08/07/17 at 20:15; Stop 08/07/17 at 20:16; Status DC Lorazepam (Ativan Inj) 1 mg ONCE ONCE IV PUSH Last administered on 08/07/17at 20 :29; Start 08/07/17 at 20:30; Stop 08/07/17 at 20:31; Status DC Sodium Chloride (NS Flush) 2 ml BID IV FLUSH Last administered on 08/09/17at 09: 38; Start 08/07/17 at 21:00; Stop 08/10/17 at 11:10; Status DC Sodium Chloride (NS Flush) 2 ml UNSCH PRN IV FLUSH FLUSH AFTER USING IV ACCESS ; Start 08/07/17 at 20:45; Stop 08/10/17 at 11:10; Status DC Sodium Chloride 1,000 ml @ 70 mls/hr [id number] IV Last administered on at 20:08; Start 08/07/17 at 20:41; Stop 08/10/17 at 11:18; Status DC Enalaprilat (Vasotec Inj) 1.25 mg Q4H PRN IV PUSH SBP>180, DBP>110 Last administered on 08/11/17at 16:31; Start 08/07/17 at 20:45 Aspirin (Aspirin Chew) 81 mg DAILY PO Last administered on 08/08/17at 09:00; Start 08/08/17 at 09:00; Stop 08/08/17 at 14:07; Status DC Pravastatin Sodium (Pravachol) 40 mg HS PO Last administered on 08/11/17at 22:03 ; Start 08/07/17 at 21:00 Insulin Aspart (NovoLOG SUPPLEMENTAL SCALE) 1 ACHS SQ ; Start 08/07/17 at 21:00; Stop 08/08/17 at 14:12; Status DC Dextrose (D50w (Vial) Inj) 50 ml UNSCH PRN IV PUSH HYPOGLYCEMIA-SEE COMMENTS; Start 08/07/17 at 20:45; Stop 08/08/17 at 14:12; Status DC Glucagon (Glucagon Inj) 1 mg UNSCH PRN OTHER HYPOGLYCEMIA-SEE COMMENTS; Start 08/07/17 at 20:45; Stop 08/08/17 at 14:12; Status DC Albuterol/ Ipratropium (Duoneb Neb) 1 ampule Q4HR NEB PRN NEB SOB/WHEEZING; Start 08/07/17 at 21:15 Quetiapine Fumarate (SEROquel) 100 mg HS PO Last administered on 08/11/17at 22: 03; Start 08/08/17 at 21:00 Lisinopril (Prinivil) 10 mg DAILY PO Last administered on 08/10/17at 09:13; Start 08/08/17 at 11:30; Stop 08/10/17 at 10:35; Status DC Acetaminophen/ Hydrocodone Bitart ([place] 10-325 Mg) 1 tab Q4H PRN PO pain 3-10 Last administered on 08/12/17at 08:26; Start 08/08/17 at 12:00 Morphine Sulfate (Morphine Inj) 4 mg ONCE ONCE IV PUSH Last administered on 12/16at 12:38; Start 08/08/17 at 12:00; Stop 08/08/17 at 12:01; Status DC Enoxaparin Sodium (Lovenox Inj) 40 mg Q24H SQ Last administered on 08/11/17at 12 :19; Start 08/08/17 at 12:00 Sodium Chloride (NS Flush) 2 ml BID IV FLUSH Last administered on 08/12/17at 08: 26; Start 08/08/17 at 21:00 Sodium Chloride (NS Flush) 2 ml UNSCH PRN IV FLUSH FLUSH AFTER USING IV ACCESS ; Start 08/08/17 at 14:15 Aspirin (Aspirin) 325 mg DAILY PO Last administered on 08/11/17at 09:23; Start 08/08/17 at 14:15 Insulin Aspart (NovoLOG SUPPLEMENTAL SCALE) 1 ACHS SQ ; Start 08/08/17 at 17:00 ; Stop 08/09/17 at 08:33; Status DC Dextrose (D50w (Vial) Inj) 50 ml UNSCH PRN IV PUSH HYPOGLYCEMIA-SEE COMMENTS; Start 08/08/17 at 14:15; Stop 08/08/17 at 14:15; Status DC Glucagon (Glucagon Inj) 1 mg UNSCH PRN OTHER HYPOGLYCEMIA-SEE COMMENTS; Start 08/08/17 at 14:15; Stop 08/08/17 at 14:15; Status DC Lisinopril (Prinivil) 20 mg DAILY PO Last administered on 08/12/17at 08:26; Start 08/11/17 at 09:00 Lisinopril (Prinivil) 10 mg ONCE ONCE PO Last administered on 08/10/17at 12:56 ; Start 08/10/17 at 10:45; Stop 08/10/17 at 11:09; Status DC Sodium Chloride 1,000 ml @ 100 mls/hr Q10H IV Last administered on 08/10/17at 21:30; Start 08/10/17 at 11:30; Stop 08/11/17 at 07:29; Status DC Iohexol (Omnipaque 350 Inj) 71 ml STK-MED ONCE IVCONTRAST Last administered on 08/10/17at 11:22; Start 08/10/17 at 11:22; Stop 08/10/17 at 11:23; Status DC Albuterol/ Ipratropium (Duoneb Neb) 1 ampule ONCE ONCE NEB Last administered on 08/10/17at 16:02; Start 08/10/17 at 14:15; Stop 08/10/17 at 14:16; Status DC Amlodipine Besylate (Norvasc) 5 mg DAILY PO Last administered on 08/12/17at 08: 26; Start 08/10/17 at 14:15 Cefazolin Sodium/ Dextrose 50 ml @ 100 mls/hr X RAY TECH IV ; Start 08/11/17 at 13:15; Stop 08/14/17 at 13:14 Lactated Ringer's 1,000 ml @ 30 mls/hr Q24H PRN IV SEE LABEL COMMENTS; Start at 16:30; Stop 08/14/17 at 16:29 Sodium Chloride 500 ml @ 30 mls/hr [id number] PRN IV SEE LABEL COMMENTS; Start at 16:30; Stop 08/14/17 at 16:29 Metoprolol Tartrate (Lopressor) 25 mg X RAY TECH PRN PO SEE LABEL COMMENTS; Start 08/11/17 at 16:30; Stop 08/14/17 at 16:29 Povidone Iodine (Betadine 5% Antisepsis Kit) 1 applic X RAY TECH PRN EACH NARE SEE LABEL COMMENTS; Start 08/11/17 at 16:30; Stop 08/14/17 at 16:29 Chlorhexidine Gluconate (Chlorhexidine 2% Cloth) 3 pack X RAY TECH PRN TOPICAL SEE LABEL COMMENTS; Start 08/11/17 at 16:30; Stop 08/14/17 at 16:29 A/P Problem List: (1) CVA (cerebral vascular accident) ICD Code: I63.9 - Cerebral infarction, unspecified Status: Acute (2) HTN (hypertension) ICD Code: I10 - Essential (primary) hypertension (3) COPD (chronic obstructive pulmonary disease) ICD Code: J44.9 - Chronic obstructive pulmonary disease, unspecified (4) Cocaine abuse ICD Code: F14.10 - Cocaine abuse, uncomplicated (5) Tobacco abuse ICD Code: Z72.0 - Tobacco use Assessment and Plan CVA Acute onset LUE weakness/ tremor w/ slurred speech x1 day. CT Head w/ subacute/ remote infarct to right parietal lobe and remote right lacunar infarct basal ganglia. UDS + cocaine, opiates and cannabinoids. Neurology consultation appreciated. A1c 5.7%. Right carotid with severe stenosis. MRI: Multiple infarcts in the right MCA distribution, predominantly posteriorly. CTA carotids : High-grade stenosis at the origin of the right internal carotid artery with extensive soft plaque and large ulcerations; Slight atherosclerotic disease with soft plaque and mild ulceration at the origin of the left ICA without any significant stenosis. Vascular surgery consult appreciated. Left arm tremor is improved. - Neuro checks. - follow up with neurology. - likely CEA per vascular surgery. - PT/ OT/ ST. - ASA, statin. - echo pending. - blood pressure control. RIGHT ICA TO HAVE PROCEDURE TODAY Hypertensive emergency S/p permissive HTN in light of CVA. Still poorly controlled. - increase lisinopril to 20 mg daily. Adjust as needed. - add amlodipine 5 mg daily. - Vasotec as needed. COPD Mild wheezing on exam. CXR clear. - DuoNeb prn. - O2 as needed. - incentive spirometry. Cocaine Abuse Admits to recent use 2 days prior to admission. - pt counselled. - Ativan prn. Tobacco Abuse Counselled. - No NicoDerm to avoid vasoconstriction. - Ativan prn Renal insufficiency GFR 61 on admission. - IVFs and avoid nephrotoxins. - BMP in AM. DVT Prophylaxis: Lovenox AM LABS Discharge Planning Will need surgery before can be discharged Needs right ICA surgery Problem Qualifiers (1) CVA (cerebral vascular accident): Qualified Codes: I63.9 - Cerebral infarction, unspecified Cuate Carroll DO Aug 12, 2017 09:36
[2017-08-12] MEDS ORDERED: ACETAMINOPHEN 1000 MG/100 ML 100 ML IV ONE (10:07)
[2017-08-12] MEDS ORDERED: HEPARIN SODIUM - SQ 10,000 UNITS/ML VIAL ONE (10:14)
[2017-08-12] MEDS ORDERED: LIDOCAINE HCL 1% 50 ML VIAL ONE (10:15)
[2017-08-12] MEDS ORDERED: PROTAMINE SULFATE 50 MG/5 ML VIAL ONE (10:15)
[2017-08-12] MEDS ORDERED: HEPARIN SODIUM - IV 10,000 UNITS/10 ML VIAL ONE (10:15)
[2017-08-12] MEDS ORDERED: DEXAMETHASONE SOD PHOS 4 MG/ML VIAL IV ONE (11:04)
[2017-08-12] MEDS ORDERED: GLYCOPYRROLATE 1 MG/5 ML SYRINGE IV PUSH ONE (11:04)
[2017-08-12] MEDS ORDERED: ROCURONIUM INJ 50 MG/5 ML SYRINGE IV PUSH ONE (11:04)
[2017-08-12] MEDS ORDERED: PHENYLEPH/NS 1000 MCG/10 ML SYR IV ONE (11:04)
[2017-08-12] MEDS ORDERED: ONDANSETRON HCL 4 MG/2 ML VIAL IV PUSH ONE (11:04)
[2017-08-12] MEDS ORDERED: ESMOLOL HCL 100 MG/10 ML VIAL IV ONE (11:04)
[2017-08-12] MEDS ORDERED: PROPOFOL 200 MG/20 ML AMP IV ONE (11:04)
[2017-08-12] MEDS ORDERED: PHENYLEPHRINE HCL 10 MG/ML VIAL IV ONE (11:04)
[2017-08-12] MEDS ORDERED: LIDOCAINE HCL 1% PF 5 ML SYRINGE OTHER ONE (11:04)
[2017-08-12] MEDS ORDERED: NITROGLYCERIN INJ 5 ML ONE (11:58)
[2017-08-12] MEDS: ENOXAPARIN SODIUM 40 MG/0.4 ML SYRINGE SQ SCH (12:00)
[2017-08-12 12:03] LABS: PROTEIN C ACTIVITY 125 % (70 - 150); PROTEIN S ACTIVITY 136 % (65 - 160)
[2017-08-12] MEDS ORDERED: DO NOT ADM ANY ANTICOAGULANT DRUGS PRN (14:14)
[2017-08-12] MEDS ORDERED: *MEPERIDINE 25 MG INJ VIAL PERIprocedural Use ONLY ONE (14:22)
[2017-08-12] MEDS ORDERED: *morphine SULFATE 4 MG/ML PERIprocedure ONLY ONE (14:25)
[2017-08-12] MEDS ORDERED: *morphine SULFATE 8 MG/ML PERIprocedure ONLY ONE (14:30)
[2017-08-12] MEDS ORDERED: HYDROmorphone HCL PF 2 MG/ML VIAL ONE ×2 (14:48→15:06)
[2017-08-12] MEDS ORDERED: MIDAZOLAM HCL 2 MG/2 ML VIAL ONE (14:57)
[2017-08-12] MEDS: HYDROmorphone HCL PF 2 MG/ML VIAL ONE (16:15)
[2017-08-12 17:38] LABS: HEMOGLOBIN A1C 5.7 % (4.3-6.0)
[2017-08-12 18:00] VITALS: BP 155/91; PULSE 90; RESP 27; TEMP 97.4; O2SAT 96
--- NOTE | 2017-08-12 18:26 | MP ---
cc: Dylan Goncalves MD, Slobodan MD DATE OF OPERATION: PREOPERATIVE DIAGNOSIS: Tight right internal carotid artery stenosis and repeated strokes. POSTOPERATIVE DIAGNOSIS: Tight right internal carotid artery stenosis and repeated strokes. PROCEDURE PERFORMED: Right carotid endarterectomy patch angioplasty. SURGEON: Dylan Goncalves MD. ANESTHESIA: General. ESTIMATED BLOOD LOSS: 100 mL INDICATIONS: The patient prepped and draped in usual fashion. Right para sternocleidomastoid incision made, deepened down through the platysma to the level of the carotid sheath. The facial vein is ligated and divided. Common carotid, internal, external carotid arteries are dissected with a sharp dissection and then umbilical tape with Rumel placed around each. Weitlaner and iron internal control analyst upper arm retractors are placed and the patient is given 7000 units of heparin. The external carotid artery is cinched down with a Rumel and internal and common carotid arteries are clamped with a bulldog and angled DeBakey clamp respectively. The vessel is opened longitudinally with Howell scissors and an Morris shunt immediately placed and blood flow reestablished. The patient is noted to have a huge plaque in the right carotid artery, which extends about an inch into the vessel. In the bifurcation, there are several ulcerated areas with holes in the plaque which were clearly segments that were flushing off. Plaque is hard on the surface and then it has underlying very cheesy soft bottom. I am surprised the patient did not have a massive stroke from this before. The plaque is now dissected in a media plane using [place] dissector and then removed. It peels off real nicely in the internal carotid artery and it is cut off straight in the common carotid artery. Surface is flushed with heparinized saline and small debris removed with Leksells and forceps. The intima in the internal carotid artery was tacked down with 7-0 Prolene and then 8 mm x 8 cm bovine patch is chosen. It is sewn in with a running 5-0 Prolene and, prior to completion of the closure, the Morris shunt is removed and closure completed. Blood flow is reestablished in the usual order and fashion preventing distal embolization. Area irrigated with copious amounts of saline and then a CHARU drain is placed. Incision closed with 0 Vicryl in layers and 4-0 Monocryl for the skin. Benzoin and Steri-Strips applied. The patient tolerated the procedure well. At the end of the procedure, the patient is neurologically fully intact. MD DEVONTE Ugarte/ , 05:57 PM , 06:24 PM
[2017-08-12] MEDS: METOPROLOL TARTRATE 5 MG/5 ML VIAL IV PUSH SCH (18:45)
[2017-08-12 20:00] VITALS: BP 157/84; PULSE 75; RESP 22; TEMP 98; O2SAT 96
[2017-08-12] MEDS ORDERED: cloNIDine HCL 0.2 MG/24 HR PATCH T-DERMAL SCH (20:00)
[2017-08-12] MEDS ORDERED: METOPROLOL TARTRATE 25 MG TAB PO SCH (21:00)
[2017-08-12] MEDS: QUEtiapine FUMARATE 100 MG TAB PO SCH (21:04)
[2017-08-12] MEDS: PRAVASTATIN SOD 40 MG TAB PO SCH (21:05)
[2017-08-12] MEDS: CLOPIDOGREL 75 MG TAB PO SCH (21:43)
[2017-08-12] MEDS: ENALAPRILAT 1.25 MG/ML VIAL IV PUSH PRN (22:23)
[2017-08-12 23:05] VITALS: O2SAT 97
[2017-08-13] VITALS (16 sets, daily range): BP systolic 131–156; BP diastolic 63–77; PULSE 68–90; RESP 12–18; TEMP 98–99.1; O2SAT 96–99
[2017-08-13] MEDS: ACETAMINOPHEN/HYDROcodone 325 MG/10 MG TAB PO PRN ×5 (02:34→21:20)
[2017-08-13 05:18] LABS: AUTOMATED NEUTROPHIL # 11.5 TH/MM3 (1.8-7.7); BASOPHIL # 0.1 TH/MM3 (0-0.2); BASOPHIL % 0.4 % (0.0-2.0); EOSINOPHIL % 0.1 % (0.0-4.0); HEMATOCRIT 36.7 % (39.0-51.0); HEMOGLOBIN 12.4 GM/DL (13.0-17.0); LYMPH % 9.1 % (9.0-44.0); LYMPHOCYTE # 1.2 TH/MM3 (1.0-4.8); MEAN CELL VOLUME 89.9 FL (80.0-100.0); MEAN CORPUSCULAR HEMOGLOBIN 30.4 PG (27.0-34.0); MEAN CORPUSCULAR HGB CONC 33.9 % (32.0-36.0); MEAN PLATELET VOLUME 10.6 FL (7.0-11.0); MONO % 7.3 % (0.0-8.0); NEUT % 83.1 % (16.0-70.0); PLATELET COUNT 211 TH/MM3 (150-450); RED BLOOD COUNT 4.08 MIL/MM3 (4.50-5.90); RED CELL DISTRIBUTION WIDTH 14.1 % (11.6-17.2); WHITE BLOOD COUNT 13.8 TH/MM3 (4.0-11.0)
[2017-08-13 05:55] LABS: ALBUMIN 2.8 GM/DL (3.4-5.0); ALKALINE PHOSPHATASE 60 U/L (45-117); ALT (GPT) 19 U/L (12-78); AST (GOT) 14 U/L (15-37); BICARBONATE 23.9 MEQ/L (21.0-32.0); BLOOD UREA NITROGEN 20 MG/DL (7-18); CALCIUM 8.6 MG/DL (8.5-10.1); CHLORIDE 103 MEQ/L (98-107); CREATININE 1.31 MG/DL (0.60-1.30); GLOMERULAR FILTRATION RATE 57 ML/MIN (>89); GLUCOSE,RANDOM 218 MG/DL (74-106); MAGNESIUM 2.4 MG/DL (1.5-2.5); PHOSPHORUS 2.4 MG/DL (2.5-4.9); SODIUM (NA) 138 MEQ/L (136-145); TOTAL BILIRUBIN ADULT 0.2 MG/DL (0.2-1.0); TOTAL PROTEIN 6.5 GM/DL (6.4-8.2)
[2017-08-13] MEDS: METOPROLOL TARTRATE 5 MG/5 ML VIAL IV PUSH SCH ×3 (06:07→11:14)
--- NOTE | 2017-08-13 09:02 | HHI.PR ---
Review/Management Diagnosis right hemiphere strokes. s/p right carotid endarterectomy Plan continue plavix and aspirin PT/OT Diagnosis/Plan: Subjective Subjective Comments No acute events reported Doing very well s/p right carotid endarterectomy. Neurologically continues to improve Active Medications Current Medications Medications (Trade) Dose Ordered Sig/Venita Route Start Time Stop Time Status Last Admin (Vasotec Inj) 1.25 mg Q4H PRN IV PUSH 08/07/17 20:45 08/12/17 22:23 (Pravachol) 40 mg HS PO 08/07/17 21:00 08/12/17 21:05 (Duoneb Neb) 1 ampule Q4HR NEB PRN NEB 08/07/17 21:15 (SEROquel) 100 mg HS PO 08/08/17 21:00 08/12/17 21:04 ([place] 10-325 Mg) 1 tab Q4H PRN PO 08/08/17 12:00 08/13/17 06:06 (Lovenox Inj) 40 mg Q24H SQ 08/08/17 12:00 08/11/17 12:19 (NS Flush) 2 ml BID IV FLUSH 08/08/17 21:00 08/12/17 08:26 (NS Flush) 2 ml UNSCH PRN IV FLUSH 08/08/17 14:15 (Aspirin) 325 mg DAILY PO 08/08/17 14:15 08/11/17 09:23 (Prinivil) 20 mg DAILY PO 08/11/17 09:00 08/12/17 08:26 Cefazolin Sodium/ Dextrose 50 ml @ 100 mls/hr ROOTER OPERATOR IV 08/11/17 13:15 08/14/17 13:14 08/12/17 10:42 Lactated Ringer's 1,000 ml @ 30 mls/hr Q24H PRN IV 08/11/17 16:30 08/14/17 16:29 08/12/17 10:16 Sodium Chloride 500 ml @ 30 mls/hr [id number] PRN IV 08/11/17 16:30 08/14/17 16:29 (Lopressor) 25 mg ROOTER OPERATOR PRN PO 08/11/17 16:30 08/14/17 16:29 (Betadine 5% Antisepsis Kit) 1 applic ROOTER OPERATOR PRN EACH NARE 08/11/17 16:30 08/14/17 16:29 (Chlorhexidine 2% Cloth) 3 pack ROOTER OPERATOR PRN TOPICAL 08/11/17 16:30 08/14/17 16:29 (Norvasc) 5 mg BID PO 08/12/17 21:00 08/12/17 21:05 ([facility] – [place], [place] Nursing Information) ALL NURSING DEPARTME... UNSCH PRN .XX 08/12/17 14:14 08/13/17 14:13 (Plavix) 75 mg DAILY PO 08/12/17 19:15 08/12/17 21:43 (Lopressor Inj) 5 mg Q6HR IV PUSH 08/12/17 18:45 08/13/17 06:07 (Catapres-Tts 0.2 Mg Patch.7d) 1 patch Q7D T-DERMAL 08/12/17 20:00 08/12/17 21:44 Miscellaneous Information 1 Q7D T-DERMAL 08/19/17 20:00 Allergies Allergies Coded Allergies No Known Allergies (Verified Allergy, Unknown, 08/07/17) Exam I&O / VS Vital Signs Date Time Temp Pulse Resp B/P (MAP) Pulse Ox O2 Delivery O2 Flow Rate FiO2 08/13/17 07:36 96 Nasal Cannula 4.00 08/13/17 06:00 90 08/13/17 04:46 98.0 78 15 144/70 (94) 99 08/13/17 04:00 90 08/13/17 03:21 96 Nasal Cannula 2.00 08/13/17 02:00 90 08/13/17 00:46 98.0 77 15 147/66 (93) 98 08/13/17 00:00 98.0 77 15 147/66 (93) 98 08/13/17 00:00 80 08/12/17 23:05 97 08/12/17 20:00 98.0 75 22 157/84 (108) 96 08/12/17 20:00 75 08/12/17 18:00 97.4 90 27 155/91 (112) 96 08/12/17 16:25 98.0 86 20 143/78 (99) 95 Nasal Cannula 2 08/12/17 15:15 90 20 156/81 (106) 94 Nasal Cannula 2 08/12/17 15:00 97 20 152/85 (107) 94 Nasal Cannula 2 08/12/17 14:45 108 20 146/84 (104) 95 Nasal Cannula 2 08/12/17 14:30 122 20 143/80 (101) 93 Nasal Cannula 2 08/12/17 14:16 98.0 95 20 131/84 (100) 95 Nasal Cannula 2 Manual Cuff/Palpation Exam Comments alert, speech intact, normal comprehension CN--mild LUMN CN 7 palsey otherwise normal MOTOR 5-/5 LUE and 5/5 LLE. Normal on right side Objective Micro and Labs Laboratory Tests Test 08/13/17 05:00 White Blood Count 13.8 Red Blood Count 4.08 Hemoglobin 12.4 Hematocrit 36.7 Mean Corpuscular Volume 89.9 Mean Corpuscular Hemoglobin 30.4 Mean Corpuscular Hemoglobin Concent 33.9 Red Cell Distribution Width 14.1 Platelet Count 211 Mean Platelet Volume 10.6 Neutrophils (%) (Auto) 83.1 Lymphocytes (%) (Auto) 9.1 Monocytes (%) (Auto) 7.3 Eosinophils (%) (Auto) 0.1 Basophils (%) (Auto) 0.4 Neutrophils # (Auto) 11.5 Lymphocytes # (Auto) 1.2 Monocytes # (Auto) 1.0 Eosinophils # (Auto) 0.0 Basophils # (Auto) 0.1 CBC Comment DIFF FINAL Differential Comment Blood Urea Nitrogen 20 Creatinine 1.31 Random Glucose 218 Total Protein 6.5 Albumin 2.8 Calcium Level 8.6 Phosphorus Level 2.4 Magnesium Level 2.4 Alkaline Phosphatase 60 Aspartate Amino Transf (AST/SGOT) 14 Alanine Aminotransferase (ALT/SGPT) 19 Total Bilirubin 0.2 Sodium Level 138 Potassium Level 4.1 Chloride Level 103 Carbon Dioxide Level 23.9 Anion Gap 11 Estimat Glomerular Filtration Rate 57 Des Hood MD PhD Aug 13, 2017 09:02
[2017-08-13] MEDS: LISINOPRIL 10 MG TAB PO SCH (09:10)
[2017-08-13] MEDS: SODIUM CHLORIDE 0.9% FLUSH 10 ML FLUSH IV FLUSH SCH ×2 (09:10→21:19)
[2017-08-13] MEDS: ASPIRIN 325 MG TAB PO SCH (09:10)
[2017-08-13] MEDS: amLODIPine BESYLATE 5 MG TAB PO SCH ×2 (09:10→21:20)
[2017-08-13] MEDS: CLOPIDOGREL 75 MG TAB PO SCH (09:11)
--- NOTE | 2017-08-13 10:42 | HHI.PR ---
Subjective Remarks 08-10 The patient said that he wanted to go home. He understood that he needed to stay in the hospital for further intervention. He said that his blood pressure is always poorly controlled. He says that he is going to try to stay away from people who are using cocaine. He says he is not a drinker. 08-11 patient states he is scheduled for surgery tomorrow with Dr. Goncalves regarding the right ICA States he is moving his left side better Denies any shortness of breath Denies any chest pain Denies any palpitations discussed with patient and RN and heel caser We will get a.m. labs 08-12 DW PATIENT TO HAVE SURGERY TODAY TO HAVE RIGHT ICA TODAY 08-13 had surgery on RIGHT CEA YESTERDAY STILL HAS DRAIN IN PLACE CRAVING NICOTINE WANTS PATCH WANTS HHC AT [facility] RN AND PT WILL DO FACE TO FACE Objective Vitals Vital Signs Date Time Temp Pulse Resp B/P (MAP) Pulse Ox O2 Delivery O2 Flow Rate FiO2 08/13/17 07:36 96 Nasal Cannula 4.00 08/13/17 06:00 90 08/13/17 04:46 98.0 78 15 144/70 (94) 99 08/13/17 04:00 90 08/13/17 03:21 96 Nasal Cannula 2.00 08/13/17 02:00 90 08/13/17 00:46 98.0 77 15 147/66 (93) 98 08/13/17 00:00 98.0 77 15 147/66 (93) 98 08/13/17 00:00 80 08/12/17 23:05 97 08/12/17 20:00 98.0 75 22 157/84 (108) 96 08/12/17 20:00 75 08/12/17 18:00 97.4 90 27 155/91 (112) 96 08/12/17 16:25 98.0 86 20 143/78 (99) 95 Nasal Cannula 2 08/12/17 15:15 90 20 156/81 (106) 94 Nasal Cannula 2 08/12/17 15:00 97 20 152/85 (107) 94 Nasal Cannula 2 08/12/17 14:45 108 20 146/84 (104) 95 Nasal Cannula 2 08/12/17 14:30 122 20 143/80 (101) 93 Nasal Cannula 2 08/12/17 14:16 98.0 95 20 131/84 (100) 95 Nasal Cannula 2 Manual Cuff/Palpation I/O 08/12/17 08/12/17 08/12/17 08/13/17 08/13/17 08/13/17 07:00 15:00 23:00 07:00 15:00 23:00 Intake Total 800 ml 120 ml 400 ml Output Total 475 ml 420 ml 1215 ml Balance 325 ml -300 ml -815 ml Intake Oral 120 ml 400 ml IV Total 800 ml Output Urine Total 375 ml 420 ml 1200 ml Drainage Total 15 ml Estimated Blood Loss 100 ml # Voids 6 4 5 # Bowel Movements 0 0 Result Diagram: 08/13/17 0500 08/13/17 0500 Other Results Laboratory Tests Test 08/12/17 04:35 08/13/17 05:00 White Blood Count 6.5 TH/MM3 13.8 TH/MM3 Red Blood Count 4.52 MIL/MM3 4.08 MIL/MM3 Hemoglobin 13.8 GM/DL 12.4 GM/DL Hematocrit 40.6 % 36.7 % Mean Corpuscular Volume 89.7 FL 89.9 FL Mean Corpuscular Hemoglobin 30.5 PG 30.4 PG Mean Corpuscular Hemoglobin Concent 34.0 % 33.9 % Red Cell Distribution Width 13.9 % 14.1 % Platelet Count 208 TH/MM3 211 TH/MM3 Mean Platelet Volume 10.8 FL 10.6 FL Neutrophils (%) (Auto) 46.5 % 83.1 % Lymphocytes (%) (Auto) 38.0 % 9.1 % Monocytes (%) (Auto) 10.1 % 7.3 % Eosinophils (%) (Auto) 4.2 % 0.1 % Basophils (%) (Auto) 1.2 % 0.4 % Neutrophils # (Auto) 3.0 TH/MM3 11.5 TH/MM3 Lymphocytes # (Auto) 2.5 TH/MM3 1.2 TH/MM3 Monocytes # (Auto) 0.7 TH/MM3 1.0 TH/MM3 Eosinophils # (Auto) 0.3 TH/MM3 0.0 TH/MM3 Basophils # (Auto) 0.1 TH/MM3 0.1 TH/MM3 CBC Comment DIFF FINAL DIFF FINAL Differential Comment Prothrombin Time 10.2 SEC Prothromb Time International Ratio 1.0 RATIO Blood Urea Nitrogen 15 MG/DL 20 MG/DL Creatinine 1.07 MG/DL 1.31 MG/DL Random Glucose 83 MG/DL 218 MG/DL Total Protein 6.8 GM/DL 6.5 GM/DL Albumin 3.0 GM/DL 2.8 GM/DL Calcium Level 8.9 MG/DL 8.6 MG/DL Phosphorus Level 4.1 MG/DL 2.4 MG/DL Magnesium Level 2.5 MG/DL 2.4 MG/DL Alkaline Phosphatase 56 U/L 60 U/L Aspartate Amino Transf (AST/SGOT) 16 U/L 14 U/L Alanine Aminotransferase (ALT/SGPT) 21 U/L 19 U/L Total Bilirubin 0.3 MG/DL 0.2 MG/DL Sodium Level 141 MEQ/L 138 MEQ/L Potassium Level 4.3 MEQ/L 4.1 MEQ/L Chloride Level 108 MEQ/L 103 MEQ/L Carbon Dioxide Level 25.9 MEQ/L 23.9 MEQ/L Anion Gap 7 MEQ/L 11 MEQ/L Estimat Glomerular Filtration Rate 72 ML/MIN 57 ML/MIN Hemoglobin A1c 5.7 % Free Thyroxine 0.98 NG/DL Thyroid Stimulating Hormone 3rd Gen 2.010 uIU/ML Imaging Last Impressions Neck CTA 08/10/17 Signed Impressions: CONCLUSION: 1. High-grade stenosis at the origin of the right internal carotid artery with extensive soft plaque and large ulcerations. 2. Slight atherosclerotic disease with soft plaque and mild ulceration at the origin of the left ICA without any significant stenosis. Head Magnetic Resonance Angiography 08/08/17 Signed Impressions: CONCLUSION: 1. Exam degraded by motion with no significant stenosis or aneurysm identified . Carotid Artery Ultrasound 08/08/17 Signed Impressions: CONCLUSION: 1. Right Internal Carotid Artery: Severe stenosis at the proximal right employee communications intern al carotid artery. This could be better evaluated with CTA carotids. 2. Left Internal Carotid Artery: No hemodynamically significant stenosis. Brain MRI 08/08/17 Signed Impressions: CONCLUSION: 1. Multiple infarcts in the right MCA distribution predominantly posteriorly a s above. 2. Mild to moderate chronic white matter ischemic changes in the periventricul ar region. Head CT 08/07/171903 Signed Impressions: CONCLUSION: 1. Wedge-shaped area of decreased attenuation in the right parietal lobe most characteristic of a subacute or remote infarct. Also remote right lacunar infar ct in the basal ganglia. No hemorrhage or mass effect. Chest X-Ray 08/07/171903 Signed Impressions: CONCLUSION: No active disease. Cervical Spine CT 08/07/171903 Signed Impressions: CONCLUSION: 1. Moderate degenerative change. Previous fusion at C6-7. No significant canal stenosis. Objective Remarks GENERAL: Awake alert and oriented 3 talkative and cooperative-still has some left upper extremity weakness SKIN: Warm and dry. HEAD: Atraumatic. Normocephalic. EYES: Pupils equal and round. No scleral icterus. No injection or drainage. ENT: No nasal bleeding or discharge. Mucous membranes pink and moist. NECK: Trachea midline. No JVD. RIGHT SIDE OF NECK IS DRESSED WITH DRAIN IN PLACE CARDIOVASCULAR: Regular rate and rhythm. S1-S2 no S3 or S4 RESPIRATORY: No accessory muscle use. Clear to auscultation. Breath sounds equal bilaterally. GASTROINTESTINAL: Abdomen soft, non-tender, nondistended. Hepatic and splenic margins not palpable. MUSCULOSKELETAL: Extremities without clubbing, cyanosis, or edema. No obvious deformities. NEUROLOGICAL: Awake and alert. No obvious cranial nerve deficits. Motor grossly within normal limits. Five out of 5 muscle strength in the arms and legs -- left upper extremity with maybe 4 out of 5 motor strength. Normal speech. PSYCHIATRIC: Appropriate mood and affect; insight and judgment normal. Procedures 6-14 Tight right internal carotid artery stenosis and repeated strokes. POSTOPERATIVE DIAGNOSIS: Tight right internal carotid artery stenosis and repeated strokes. PROCEDURE PERFORMED: Right carotid endarterectomy patch angioplasty. SURGEON: Dylan Goncalves MD. ANESTHESIA: General. ESTIMATED BLOOD LOSS: 100 mL INDICATIONS: The patient prepped and draped in usual fashion. Right para sternocleidomastoid incision made, deepened down through the platysma to the level of the carotid sheath. The facial vein is ligated and divided. Common carotid, internal, external carotid arteries are dissected with a sharp dissection and then umbilical tape with Rumel placed around each. Weitlaner and iron employee communications intern upper arm retractors are placed and the patient is given 7000 units of heparin. The external carotid artery is cinched down with a Rumel and internal and common carotid arteries are clamped with a bulldog and angled DeBakey clamp respectively. The vessel is opened longitudinally with Howell scissors and an [place] shunt immediately placed and blood flow reestablished. The patient is noted to have a huge plaque in the right carotid artery, which extends about an inch into the vessel. In the bifurcation, there are several ulcerated areas with holes in the plaque which were clearly segments that were flushing off. Plaque is hard on the surface and then it has underlying very cheesy soft bottom. I am surprised the patient did not have a massive stroke from this before. The plaque is now dissected in a media plane using [place] dissector and then removed. It peels off real nicely in the internal carotid artery and it is cut off straight in the common carotid artery. Surface is flushed with heparinized saline and small debris removed with Leksells and forceps. The intima in the internal carotid artery was tacked down with 7-0 Prolene and then 8 mm x 8 cm bovine patch is chosen. It is sewn in with a running 5-0 Prolene and, prior to completion of the closure, the [place] shunt is removed and closure completed. Blood flow is reestablished in the usual order and fashion preventing distal embolization. Area irrigated with copious amounts of saline and then a CHARU drain is placed. Incision closed with 0 Vicryl in layers and 4-0 Monocryl for the skin. Benzoin and Steri-Strips applied. The patient tolerated the procedure well. At the end of the procedure, the patient is neurologically fully intact. Dylan Goncalves MD Medications and IVs Current Medications Sodium Chloride (NS Flush) 2 ml UNSCH PRN IVF FLUSH AFTER USING IV ACCESS; Start 08/07/17 at 19:15; Stop 08/07/17 at 21:17; Status DC Sodium Chloride 1,000 ml @ 999 mls/hr BOLUS ONCE IV Last administered on at 20:11; Start 08/07/17 at 19:15; Stop 08/07/17 at 20:15; Status DC Aspirin (Aspirin Chew) 324 mg ONCE ONCE CHEW Last administered on 08/07/17at 20: 11; Start 08/07/17 at 20:15; Stop 08/07/17 at 20:16; Status DC Lorazepam (Ativan Inj) 1 mg ONCE ONCE IV PUSH Last administered on 08/07/17at 20 :29; Start 08/07/17 at 20:30; Stop 08/07/17 at 20:31; Status DC Sodium Chloride (NS Flush) 2 ml BID IV FLUSH Last administered on 08/09/17at 09: 38; Start 08/07/17 at 21:00; Stop 08/10/17 at 11:10; Status DC Sodium Chloride (NS Flush) 2 ml UNSCH PRN IV FLUSH FLUSH AFTER USING IV ACCESS ; Start 08/07/17 at 20:45; Stop 08/10/17 at 11:10; Status DC Sodium Chloride 1,000 ml @ 70 mls/hr [id number] IV Last administered on at 20:08; Start 08/07/17 at 20:41; Stop 08/10/17 at 11:18; Status DC Enalaprilat (Vasotec Inj) 1.25 mg Q4H PRN IV PUSH SBP>160, DBP>110 Last administered on 08/12/17at 22:23; Start 08/07/17 at 20:45 Aspirin (Aspirin Chew) 81 mg DAILY PO Last administered on 08/08/17at 09:00; Start 08/08/17 at 09:00; Stop 08/08/17 at 14:07; Status DC Pravastatin Sodium (Pravachol) 40 mg HS PO Last administered on 08/12/17at 21:05 ; Start 08/07/17 at 21:00 Insulin Aspart (NovoLOG SUPPLEMENTAL SCALE) 1 ACHS SQ ; Start 08/07/17 at 21:00; Stop 08/08/17 at 14:12; Status DC Dextrose (D50w (Vial) Inj) 50 ml UNSCH PRN IV PUSH HYPOGLYCEMIA-SEE COMMENTS; Start 08/07/17 at 20:45; Stop 08/08/17 at 14:12; Status DC Glucagon (Glucagon Inj) 1 mg UNSCH PRN OTHER HYPOGLYCEMIA-SEE COMMENTS; Start 08/07/17 at 20:45; Stop 08/08/17 at 14:12; Status DC Albuterol/ Ipratropium (Duoneb Neb) 1 ampule Q4HR NEB PRN NEB SOB/WHEEZING; Start 08/07/17 at 21:15 Quetiapine Fumarate (SEROquel) 100 mg HS PO Last administered on 08/12/17at 21: 04; Start 08/08/17 at 21:00 Lisinopril (Prinivil) 10 mg DAILY PO Last administered on 08/10/17at 09:13; Start 08/08/17 at 11:30; Stop 08/10/17 at 10:35; Status DC Acetaminophen/ Hydrocodone Bitart ([place] 10-325 Mg) 1 tab Q4H PRN PO pain 3-10 Last administered on 08/13/17at 06:06; Start 08/08/17 at 12:00 Morphine Sulfate (Morphine Inj) 4 mg ONCE ONCE IV PUSH Last administered on 12/16at 12:38; Start 08/08/17 at 12:00; Stop 08/08/17 at 12:01; Status DC Enoxaparin Sodium (Lovenox Inj) 40 mg Q24H SQ Last administered on 08/11/17at 12 :19; Start 08/08/17 at 12:00 Sodium Chloride (NS Flush) 2 ml BID IV FLUSH Last administered on 08/13/17at 09: 10; Start 08/08/17 at 21:00 Sodium Chloride (NS Flush) 2 ml UNSCH PRN IV FLUSH FLUSH AFTER USING IV ACCESS ; Start 08/08/17 at 14:15 Aspirin (Aspirin) 325 mg DAILY PO Last administered on 08/13/17at 09:10; Start 08/08/17 at 14:15 Insulin Aspart (NovoLOG SUPPLEMENTAL SCALE) 1 ACHS SQ ; Start 08/08/17 at 17:00 ; Stop 08/09/17 at 08:33; Status DC Dextrose (D50w (Vial) Inj) 50 ml UNSCH PRN IV PUSH HYPOGLYCEMIA-SEE COMMENTS; Start 08/08/17 at 14:15; Stop 08/08/17 at 14:15; Status DC Glucagon (Glucagon Inj) 1 mg UNSCH PRN OTHER HYPOGLYCEMIA-SEE COMMENTS; Start 08/08/17 at 14:15; Stop 08/08/17 at 14:15; Status DC Lisinopril (Prinivil) 20 mg DAILY PO Last administered on 08/13/17at 09:10; Start 08/11/17 at 09:00 Lisinopril (Prinivil) 10 mg ONCE ONCE PO Last administered on 08/10/17at 12:56 ; Start 08/10/17 at 10:45; Stop 08/10/17 at 11:09; Status DC Sodium Chloride 1,000 ml @ 100 mls/hr Q10H IV Last administered on 08/10/17at 21:30; Start 08/10/17 at 11:30; Stop 08/11/17 at 07:29; Status DC Iohexol (Omnipaque 350 Inj) 71 ml STK-MED ONCE IVCONTRAST Last administered on 08/10/17at 11:22; Start 08/10/17 at 11:22; Stop 08/10/17 at 11:23; Status DC Albuterol/ Ipratropium (Duoneb Neb) 1 ampule ONCE ONCE NEB Last administered on 08/10/17at 16:02; Start 08/10/17 at 14:15; Stop 08/10/17 at 14:16; Status DC Amlodipine Besylate (Norvasc) 5 mg DAILY PO Last administered on 08/12/17at 08: 26; Start 08/10/17 at 14:15; Stop 08/12/17 at 09:38; Status DC Cefazolin Sodium/ Dextrose 50 ml @ 100 mls/hr RECYCLING TECH IV Last administered on 08/12/17at 10:42; Start 08/11/17 at 13:15; Stop 08/14/17 at 13:14 Lactated Ringer's 1,000 ml @ 30 mls/hr Q24H PRN IV SEE LABEL COMMENTS Last administered on 08/12/17at 10:16; Start 08/11/17 at 16:30; Stop 08/14/17 at 16:29 Sodium Chloride 500 ml @ 30 mls/hr [id number] PRN IV SEE LABEL COMMENTS; Start at 16:30; Stop 08/14/17 at 16:29 Metoprolol Tartrate (Lopressor) 25 mg RECYCLING TECH PRN PO SEE LABEL COMMENTS; Start 08/11/17 at 16:30; Stop 08/14/17 at 16:29 Povidone Iodine (Betadine 5% Antisepsis Kit) 1 applic RECYCLING TECH PRN EACH NARE SEE LABEL COMMENTS; Start 08/11/17 at 16:30; Stop 08/14/17 at 16:29 Chlorhexidine Gluconate (Chlorhexidine 2% Cloth) 3 pack RECYCLING TECH PRN TOPICAL SEE LABEL COMMENTS; Start 08/11/17 at 16:30; Stop 08/14/17 at 16:29 Amlodipine Besylate (Norvasc) 5 mg BID PO Last administered on 08/13/17at 09:10 ; Start 08/12/17 at 21:00 Metoprolol Tartrate (Lopressor) 25 mg Q12HR PO ; Start 08/12/17 at 21:00; Stop 08/12/17 at 21:00; Status DC Acetaminophen 100 ml @ As Directed STK-MED ONCE IV ; Start 08/12/17 at 10:07; Stop 08/12/17 at 10:08; Status DC Heparin Sodium (Porcine) (Heparin Inj) 10,000 units STK-MED ONCE .ROUTE Last administered on 08/12/17at 12:37; Start 08/12/17 at 10:14; Stop 08/12/17 at 10:15 ; Status DC Heparin Sodium (Porcine) (Heparin Inj) 10,000 units STK-MED ONCE .ROUTE Last administered on 08/12/17at 12:46; Start 08/12/17 at 10:15; Stop 08/12/17 at 10:16 ; Status DC Protamine Sulfate (Protamine Sulfate Inj) 50 mg STK-MED ONCE .ROUTE ; Start at 10:15; Stop 08/12/17 at 10:16; Status DC Lidocaine HCl (Xylocaine 1% Inj (50 ml)) 50 ml STK-MED ONCE .ROUTE Last administered on 08/12/17at 12:37; Start 08/12/17 at 10:15; Stop 08/12/17 at 10:16 ; Status DC Nitroglycerin 5 ml @ As Directed STK-MED ONCE .ROUTE ; Start 08/12/17 at 11:58; Stop 08/12/17 at 11:59; Status DC Meperidine HCl (*DEMEROL INJ PERIprocedural ONLY) 25 mg STK-MED ONCE .ROUTE Last administered on 08/12/17at 14:22; Start 08/12/17 at 14:22; Stop 08/12/17 at 14:23; Status DC Morphine Sulfate (*morphine INJ PERIprocedure ONLY) 4 mg STK-MED ONCE .ROUTE Last administered on 08/12/17at 14:25; Start 08/12/17 at 14:25; Stop 08/12/17 at 14:26; Status DC Morphine Sulfate (*morphine INJ PERIprocedure ONLY) 8 mg STK-MED ONCE .ROUTE Last administered on 08/12/17at 14:33; Start 08/12/17 at 14:30; Stop 08/12/17 at 14:31; Status DC Hydromorphone HCl (Dilaudid Pf Inj) 2 mg STK-MED ONCE .ROUTE Last administered on 08/12/17at 14:51; Start 08/12/17 at 14:48; Stop 08/12/17 at 14:49; Status DC Miscellaneous Information ([facility] Nursing Information) ALL NURSING DEPARTME... UNSCH PRN .XX SEE LABEL COMMENTS; Start 08/12/17 at 14:14; Stop 08/13/17 at 14: 13 Fentanyl Citrate (fentaNYL INJ) 300 mcg STK-MED ONCE .ROUTE ; Start 08/12/17 at 14:57; Stop 08/12/17 at 14:58; Status DC Midazolam HCl (Versed Inj) 2 mg STK-MED ONCE .ROUTE ; Start 08/12/17 at 14:57; Stop 08/12/17 at 14:58; Status DC Hydromorphone HCl (Dilaudid Pf Inj) 2 mg STK-MED ONCE .ROUTE Last administered on 08/12/17at 15:06; Start 08/12/17 at 15:06; Stop 08/12/17 at 15:07; Status DC Hydromorphone HCl (Dilaudid Pf Inj) 2 mg STK-MED ONCE .ROUTE Last administered on 08/12/17at 16:15; Start 08/12/17 at 16:15; Stop 08/12/17 at 16:16; Status DC Clopidogrel Bisulfate (Plavix) 75 mg DAILY PO Last administered on 08/13/17at 09 :11; Start 08/12/17 at 19:15 Metoprolol Tartrate (Lopressor Inj) 5 mg Q6HR IV PUSH Last administered on 08/13at 06:07; Start 08/12/17 at 18:45 Clonidine (Catapres-Tts 0.2 Mg Patch.7d) 1 patch Q7D T-DERMAL Last administered on 08/12/17at 21:44; Start 08/12/17 at 20:00 Miscellaneous Information 1 Q7D T-DERMAL ; Start 08/19/17 at 20:00 A/P Problem List: (1) CVA (cerebral vascular accident) ICD Code: I63.9 - Cerebral infarction, unspecified Status: Acute (2) HTN (hypertension) ICD Code: I10 - Essential (primary) hypertension (3) COPD (chronic obstructive pulmonary disease) ICD Code: J44.9 - Chronic obstructive pulmonary disease, unspecified (4) Cocaine abuse ICD Code: F14.10 - Cocaine abuse, uncomplicated (5) Tobacco abuse ICD Code: Z72.0 - Tobacco use Assessment and Plan CVA Acute onset LUE weakness/ tremor w/ slurred speech x1 day. CT Head w/ subacute/ remote infarct to right parietal lobe and remote right lacunar infarct basal ganglia. UDS + cocaine, opiates and cannabinoids. Neurology consultation appreciated. A1c 5.7%. Right carotid with severe stenosis. MRI: Multiple infarcts in the right MCA distribution, predominantly posteriorly. CTA carotids : High-grade stenosis at the origin of the right internal carotid artery with extensive soft plaque and large ulcerations; Slight atherosclerotic disease with soft plaque and mild ulceration at the origin of the left ICA without any significant stenosis. Vascular surgery consult appreciated. Left arm tremor is improved. - Neuro checks. - follow up with neurology. - likely CEA per vascular surgery. - PT/ OT/ ST. - ASA, statin. - echo pending. - blood pressure control. RIGHT ICA TO HAVE PROCEDURE TODAY 6-14 Tight right internal carotid artery stenosis and repeated strokes. POSTOPERATIVE DIAGNOSIS: Tight right internal carotid artery stenosis and repeated strokes. PROCEDURE PERFORMED: Right carotid endarterectomy patch angioplasty. SURGEON: Dylan Goncalves MD. Hypertensive emergency S/p permissive HTN in light of CVA. Still poorly controlled. - increase lisinopril to 20 mg daily. Adjust as needed. - add amlodipine 5 mg daily. - Vasotec as needed. COPD Mild wheezing on exam. CXR clear. - DuoNeb prn. - O2 as needed. - incentive spirometry. Cocaine Abuse Admits to recent use 2 days prior to admission. - pt counselled. - Ativan prn. Tobacco Abuse Counselled. - No NicoDerm to avoid vasoconstriction. - Ativan prn Renal insufficiency GFR 61 on admission. - IVFs and avoid nephrotoxins. - BMP in AM. DVT Prophylaxis: Lovenox AM LABS Discharge Planning HOPEFULLY DC TOMORROW NICODERM PATCH Problem Qualifiers (1) CVA (cerebral vascular accident): Qualified Codes: I63.9 - Cerebral infarction, unspecified Cuate Carroll DO Aug 13, 2017 10:42
[2017-08-13] MEDS ORDERED: NICOTINE 21 MG/24 HR PATCH T-DERMAL ONE (10:45)
--- NOTE | 2017-08-13 10:45 | HHI.FF ---
Face to Face Verification Diagnosis: (1) Stenosis of right internal carotid artery (2) HTN (hypertension) (3) Tobacco abuse (4) Cocaine abuse (5) CVA (cerebral vascular accident) (6) COPD (chronic obstructive pulmonary disease) Home Health Nursing Order: Medical education Signs/symptoms of disease process Wound care and dressing changes Nursing assessment with vital signs Home Health Aide Order: To Assist In: Bathing and personal care, instructor physical education and meal prep I have seen patient Aston Hsieh on 08/13/17. My clinical findings support the need for the requested home health care services because: Med compliance is questionable I certify that my clinical findings support that this patient is homebound because: Impaired cognitive ability/safety Hx COPD- exertion dyspnea/weakness Need for psychosocial assistance Cuate Carroll DO Aug 13, 2017 10:44
[2017-08-13] MEDS: ENOXAPARIN SODIUM 40 MG/0.4 ML SYRINGE SQ SCH (11:15)
--- NOTE | 2017-08-13 14:59 | PD.CAR.PN ---
CVT Progress Note Subjective/Hospital Course: 08/11/2017 As noted in my original consult, patient with severe right internal carotid artery stenosis and subacute ischemic and old parietal strokes in the confluence of the middle cerebral artery Based on all of the above in the degree of stenosis patient should have surgery at this admission All things equal for right carotid endarterectomy tomorrow I discussed risks and benefits with the patient 08/13/2017 Patient status post right carotid endarterectomy Incision is clean and dry and patient is neurologically fully intact CHARU has been removed Patient can be transferred to floor and discharged when okay with medicine and other issues like blood pressure are stabilized Patient has been hypertensive throughout and will need to go home on some medication to prevent excessive elevation of blood pressure especially after carotid surgery Plan Transfer to floor Hypertension management as per medicine Patient can shower and get incision wet with soap and water tomorrow and leave it open to air Objective: Vital Signs Date Time Temp Pulse Resp B/P (MAP) Pulse Ox O2 Delivery O2 Flow Rate FiO2 08/13/17 14:00 73 08/13/17 12:46 99.1 69 18 132/63 (86) 98 08/13/17 12:00 69 08/13/17 10:00 74 08/13/17 08:46 99.1 68 12 131/68 (89) 98 08/13/17 08:00 68 08/13/17 07:36 96 Nasal Cannula 4.00 08/13/17 06:00 90 08/13/17 04:46 98.0 78 15 144/70 (94) 99 08/13/17 04:00 90 08/13/17 03:21 96 Nasal Cannula 2.00 08/13/17 02:00 90 08/13/17 00:46 98.0 77 15 147/66 (93) 98 08/13/17 00:00 98.0 77 15 147/66 (93) 98 08/13/17 00:00 80 08/12/17 23:05 97 08/12/17 20:00 98.0 75 22 157/84 (108) 96 08/12/17 20:00 75 08/12/17 18:00 97.4 90 27 155/91 (112) 96 08/12/17 16:25 98.0 86 20 143/78 (99) 95 Nasal Cannula 2 08/12/17 15:15 90 20 156/81 (106) 94 Nasal Cannula 2 08/12/17 15:00 97 20 152/85 (107) 94 Nasal Cannula 2 Labs: Laboratory Tests Test 08/13/17 05:00 White Blood Count 13.8 TH/MM3 (4.0-11.0) Red Blood Count 4.08 MIL/MM3 (4.50-5.90) Hemoglobin 12.4 GM/DL (13.0-17.0) Hematocrit 36.7 % (39.0-51.0) Mean Corpuscular Volume 89.9 FL (80.0-100.0) Mean Corpuscular Hemoglobin 30.4 PG (27.0-34.0) Mean Corpuscular Hemoglobin Concent 33.9 % (32.0-36.0) Red Cell Distribution Width 14.1 % (11.6-17.2) Platelet Count 211 TH/MM3 (150-450) Mean Platelet Volume 10.6 FL (7.0-11.0) Neutrophils (%) (Auto) 83.1 % (16.0-70.0) Lymphocytes (%) (Auto) 9.1 % (9.0-44.0) Monocytes (%) (Auto) 7.3 % (0.0-8.0) Eosinophils (%) (Auto) 0.1 % (0.0-4.0) Basophils (%) (Auto) 0.4 % (0.0-2.0) Neutrophils # (Auto) 11.5 TH/MM3 (1.8-7.7) Lymphocytes # (Auto) 1.2 TH/MM3 (1.0-4.8) Monocytes # (Auto) 1.0 TH/MM3 (0-0.9) Eosinophils # (Auto) 0.0 TH/MM3 (0-0.4) Basophils # (Auto) 0.1 TH/MM3 (0-0.2) CBC Comment DIFF FINAL Differential Comment Blood Urea Nitrogen 20 MG/DL (7-18) Creatinine 1.31 MG/DL (0.60-1.30) Random Glucose 218 MG/DL (74-106) Total Protein 6.5 GM/DL (6.4-8.2) Albumin 2.8 GM/DL (3.4-5.0) Calcium Level 8.6 MG/DL (8.5-10.1) Phosphorus Level 2.4 MG/DL (2.5-4.9) Magnesium Level 2.4 MG/DL (1.5-2.5) Alkaline Phosphatase 60 U/L (45-117) Aspartate Amino Transf (AST/SGOT) 14 U/L (15-37) Alanine Aminotransferase (ALT/SGPT) 19 U/L (12-78) Total Bilirubin 0.2 MG/DL (0.2-1.0) Sodium Level 138 MEQ/L (136-145) Potassium Level 4.1 MEQ/L (3.5-5.1) Chloride Level 103 MEQ/L (98-107) Carbon Dioxide Level 23.9 MEQ/L (21.0-32.0) Anion Gap 11 MEQ/L (5-15) Estimat Glomerular Filtration Rate 57 ML/MIN (>89) Result Diagram: 08/13/17 0500 08/13/17 0500 Dylan Goncalves MD Aug 13, 2017 14:59
[2017-08-13] MEDS: METOPROLOL TARTRATE 25 MG TAB PO SCH ×2 (16:19→21:20)
[2017-08-13] MEDS: QUEtiapine FUMARATE 100 MG TAB PO SCH (21:20)
[2017-08-13] MEDS: PRAVASTATIN SOD 40 MG TAB PO SCH (21:20)
[2017-08-14] VITALS: BP 129/69; PULSE 73; RESP 19; TEMP 97.9; O2SAT 95
[2017-08-14 01:44] VITALS: O2SAT 95
[2017-08-14] MEDS: ACETAMINOPHEN/HYDROcodone 325 MG/10 MG TAB PO PRN ×2 (01:49→06:07)
[2017-08-14 04:00] VITALS: BP 127/62; PULSE 71; RESP 18; TEMP 97.5; O2SAT 96
[2017-08-14 08:14] LABS: AUTOMATED NEUTROPHIL # 6.1 TH/MM3 (1.8-7.7); BASOPHIL # 0.1 TH/MM3 (0-0.2); BASOPHIL % 0.6 % (0.0-2.0); EOSINOPHIL # 0.2 TH/MM3 (0-0.4); EOSINOPHIL % 1.6 % (0.0-4.0); HEMOGLOBIN 13.2 GM/DL (13.0-17.0); LYMPHOCYTE # 3.2 TH/MM3 (1.0-4.8); MEAN CELL VOLUME 90.2 FL (80.0-100.0); MEAN CORPUSCULAR HEMOGLOBIN 30.5 PG (27.0-34.0); MEAN CORPUSCULAR HGB CONC 33.9 % (32.0-36.0); MEAN PLATELET VOLUME 11.9 FL (7.0-11.0); MONO % 10.5 % (0.0-8.0); MONOCYTE # 1.1 TH/MM3 (0-0.9); NEUT % 57.3 % (16.0-70.0); PLATELET COUNT 213 TH/MM3 (150-450); RED BLOOD COUNT 4.32 MIL/MM3 (4.50-5.90); RED CELL DISTRIBUTION WIDTH 13.9 % (11.6-17.2); WHITE BLOOD COUNT 10.6 TH/MM3 (4.0-11.0)
[2017-08-14 08:23] VITALS: BP 160/93; PULSE 79; RESP 18; TEMP 97.3; O2SAT 97
[2017-08-14] MEDS ORDERED: PLAV75TA29 PO (08:47)
[2017-08-14] MEDS ORDERED: PRAV40TA PO (08:47)
[2017-08-14] MEDS ORDERED: METO25TA3 PO (08:47)
[2017-08-14] MEDS ORDERED: LISI10TA3 PO (08:47)
[2017-08-14] MEDS ORDERED: NICO21DI25 T-DERMAL (08:47)
[2017-08-14] MEDS ORDERED: CLON.2T T-DERMAL (08:47)
[2017-08-14] MEDS ORDERED: SERO100T PO (08:47)
[2017-08-14] MEDS ORDERED: HYDR-3583 PO (08:47)
[2017-08-14] MEDS ORDERED: SENN187 PO (08:47)
[2017-08-14] MEDS ORDERED: AMLO5 PO (08:47)
[2017-08-14 08:57] LABS: ALBUMIN 3.1 GM/DL (3.4-5.0); ALKALINE PHOSPHATASE 57 U/L (45-117); ALT (GPT) 19 U/L (12-78); AST (GOT) 11 U/L (15-37); BLOOD UREA NITROGEN 16 MG/DL (7-18); CHLORIDE 107 MEQ/L (98-107); CREATININE 0.97 MG/DL (0.60-1.30); GLOMERULAR FILTRATION RATE 80 ML/MIN (>89); GLUCOSE,RANDOM 73 MG/DL (74-106); MAGNESIUM 2.3 MG/DL (1.5-2.5); PHOSPHORUS 3.2 MG/DL (2.5-4.9); SODIUM (NA) 142 MEQ/L (136-145); TOTAL BILIRUBIN ADULT 0.2 MG/DL (0.2-1.0); TOTAL PROTEIN 7.2 GM/DL (6.4-8.2)
[2017-08-14] MEDS ORDERED: NICOTINE 21 MG/24 HR PATCH T-DERMAL SCH (09:00)
[2017-08-14] MEDS ORDERED: METOPROLOL TARTRATE 50 MG TAB PO SCH (09:00)
[2017-08-14] MEDS ORDERED: REMOVE OLD PATCH T-DERMAL SCH (09:00)
[2017-08-14] MEDS: ASPIRIN 325 MG TAB PO SCH (09:12)
[2017-08-14] MEDS: CLOPIDOGREL 75 MG TAB PO SCH (09:12)
[2017-08-14] MEDS: amLODIPine BESYLATE 5 MG TAB PO SCH (09:13)
[2017-08-14] MEDS: SODIUM CHLORIDE 0.9% FLUSH 10 ML FLUSH IV FLUSH SCH (09:15)
[2017-08-14] MEDS ORDERED: cloNIDine HCL 0.2 MG TAB PO SCH (09:30)
[2017-08-14] MEDS: LISINOPRIL 10 MG TAB PO SCH (09:32)
--- NOTE | 2017-08-14 10:02 | HHI.PR ---
Subjective Remarks 12 The patient said that he wanted to go home. He understood that he needed to stay in the hospital for further intervention. He said that his blood pressure is always poorly controlled. He says that he is going to try to stay away from people who are using cocaine. He says he is not a drinker. 08-11 patient states he is scheduled for surgery tomorrow with Dr. Goncalves regarding the right ICA States he is moving his left side better Denies any shortness of breath Denies any chest pain Denies any palpitations discussed with patient and RN and clinical case manager We will get a.m. labs 08-12 DW PATIENT TO HAVE SURGERY TODAY TO HAVE RIGHT ICA TODAY 08-13 had surgery on RIGHT CEA YESTERDAY STILL HAS DRAIN IN PLACE CRAVING NICOTINE WANTS PATCH WANTS HHC AT DC DW RN AND PT WILL DO FACE TO FACE 08-14 WANTS TO GO HOME TODAY DW RN AND PT AND CM CLEARED BY VASCULAR SURGERY DC TO HOME WITH HHC Objective Vitals Vital Signs Date Time Temp Pulse Resp B/P (MAP) Pulse Ox O2 Delivery O2 Flow Rate FiO2 08/14/17 08:23 97.3 79 18 160/93 (115) 97 08/14/17 04:00 97.5 71 18 127/62 (83) 96 08/14/17 01:44 95 Nasal Cannula 3.00 08/14/17 00:00 97.9 73 19 129/69 (89) 95 08/13/17 20:00 98.0 79 18 147/77 (100) 97 08/13/17 16:38 98.1 80 18 156/77 (103) 96 08/13/17 14:00 73 08/13/17 12:46 99.1 69 18 132/63 (86) 98 08/13/17 12:00 69 08/13/17 10:00 74 I/O 08/13/17 08/13/17 08/13/17 08/14/17 08/14/17 08/14/17 07:00 15:00 23:00 07:00 15:00 23:00 Intake Total 400 ml Output Total 1215 ml Balance -815 ml Intake Oral 400 ml Output Urine Total 1200 ml Drainage Total 15 ml # Voids 5 # Bowel Movements 0 Result Diagram: 08/14/1739 08/14/1739 Other Results Laboratory Tests Test 08/12/17 04:35 08/13/17 05:00 08/14/17 06:39 White Blood Count 6.5 TH/MM3 13.8 TH/MM3 10.6 TH/MM3 Red Blood Count 4.52 MIL/MM3 4.08 MIL/MM3 4.32 MIL/MM3 Hemoglobin 13.8 GM/DL 12.4 GM/DL 13.2 GM/DL Hematocrit 40.6 % 36.7 % 39.0 % Mean Corpuscular Volume 89.7 FL 89.9 FL 90.2 FL Mean Corpuscular Hemoglobin 30.5 PG 30.4 PG 30.5 PG Mean Corpuscular Hemoglobin Concent 34.0 % 33.9 % 33.9 % Red Cell Distribution Width 13.9 % 14.1 % 13.9 % Platelet Count 208 TH/MM3 211 TH/MM3 213 TH/MM3 Mean Platelet Volume 10.8 FL 10.6 FL 11.9 FL Neutrophils (%) (Auto) 46.5 % 83.1 % 57.3 % Lymphocytes (%) (Auto) 38.0 % 9.1 % 30.0 % Monocytes (%) (Auto) 10.1 % 7.3 % 10.5 % Eosinophils (%) (Auto) 4.2 % 0.1 % 1.6 % Basophils (%) (Auto) 1.2 % 0.4 % 0.6 % Neutrophils # (Auto) 3.0 TH/MM3 11.5 TH/MM3 6.1 TH/MM3 Lymphocytes # (Auto) 2.5 TH/MM3 1.2 TH/MM3 3.2 TH/MM3 Monocytes # (Auto) 0.7 TH/MM3 1.0 TH/MM3 1.1 TH/MM3 Eosinophils # (Auto) 0.3 TH/MM3 0.0 TH/MM3 0.2 TH/MM3 Basophils # (Auto) 0.1 TH/MM3 0.1 TH/MM3 0.1 TH/MM3 CBC Comment DIFF FINAL DIFF FINAL DIFF FINAL Differential Comment Prothrombin Time 10.2 SEC Prothromb Time International Ratio 1.0 RATIO Blood Urea Nitrogen 15 MG/DL 20 MG/DL 16 MG/DL Creatinine 1.07 MG/DL 1.31 MG/DL 0.97 MG/DL Random Glucose 83 MG/DL 218 MG/DL 73 MG/DL Total Protein 6.8 GM/DL 6.5 GM/DL 7.2 GM/DL Albumin 3.0 GM/DL 2.8 GM/DL 3.1 GM/DL Calcium Level 8.9 MG/DL 8.6 MG/DL 9.0 MG/DL Phosphorus Level 4.1 MG/DL 2.4 MG/DL 3.2 MG/DL Magnesium Level 2.5 MG/DL 2.4 MG/DL 2.3 MG/DL Alkaline Phosphatase 56 U/L 60 U/L 57 U/L Aspartate Amino Transf (AST/SGOT) 16 U/L 14 U/L 11 U/L Alanine Aminotransferase (ALT/SGPT) 21 U/L 19 U/L 19 U/L Total Bilirubin 0.3 MG/DL 0.2 MG/DL 0.2 MG/DL Sodium Level 141 MEQ/L 138 MEQ/L 142 MEQ/L Potassium Level 4.3 MEQ/L 4.1 MEQ/L 3.9 MEQ/L Chloride Level 108 MEQ/L 103 MEQ/L 107 MEQ/L Carbon Dioxide Level 25.9 MEQ/L 23.9 MEQ/L 28.0 MEQ/L Anion Gap 7 MEQ/L 11 MEQ/L 7 MEQ/L Estimat Glomerular Filtration Rate 72 ML/MIN 57 ML/MIN 80 ML/MIN Hemoglobin A1c 5.7 % Free Thyroxine 0.98 NG/DL Thyroid Stimulating Hormone 3rd Gen 2.010 uIU/ML Imaging Last Impressions Neck CTA 08/10/17 Signed Impressions: CONCLUSION: 1. High-grade stenosis at the origin of the right internal carotid artery with extensive soft plaque and large ulcerations. 2. Slight atherosclerotic disease with soft plaque and mild ulceration at the origin of the left ICA without any significant stenosis. Head Magnetic Resonance Angiography 08/08/17 Signed Impressions: CONCLUSION: 1. Exam degraded by motion with no significant stenosis or aneurysm identified . Carotid Artery Ultrasound 08/08/17 Signed Impressions: CONCLUSION: 1. Right Internal Carotid Artery: Severe stenosis at the proximal right chemist internship al carotid artery. This could be better evaluated with CTA carotids. 2. Left Internal Carotid Artery: No hemodynamically significant stenosis. Brain MRI 08/08/17 Signed Impressions: CONCLUSION: 1. Multiple infarcts in the right MCA distribution predominantly posteriorly a s above. 2. Mild to moderate chronic white matter ischemic changes in the periventricul ar region. Head CT 08/07/171903 Signed Impressions: CONCLUSION: 1. Wedge-shaped area of decreased attenuation in the right parietal lobe most characteristic of a subacute or remote infarct. Also remote right lacunar infar ct in the basal ganglia. No hemorrhage or mass effect. Chest X-Ray 08/07/171903 Signed Impressions: CONCLUSION: No active disease. Cervical Spine CT 08/07/171903 Signed Impressions: CONCLUSION: 1. Moderate degenerative change. Previous fusion at C6-7. No significant canal stenosis. Objective Remarks GENERAL: Awake alert and oriented 3 talkative and cooperative-still has some left upper extremity weakness SKIN: Warm and dry. HEAD: Atraumatic. Normocephalic. EYES: Pupils equal and round. No scleral icterus. No injection or drainage. ENT: No nasal bleeding or discharge. Mucous membranes pink and moist. NECK: Trachea midline. No JVD. RIGHT SIDE OF NECK IS DRESSED WITH DRAIN IN PLACE CARDIOVASCULAR: Regular rate and rhythm. S1-S2 no S3 or S4 RESPIRATORY: No accessory muscle use. Clear to auscultation. Breath sounds equal bilaterally. GASTROINTESTINAL: Abdomen soft, non-tender, nondistended. Hepatic and splenic margins not palpable. MUSCULOSKELETAL: Extremities without clubbing, cyanosis, or edema. No obvious deformities. NEUROLOGICAL: Awake and alert. No obvious cranial nerve deficits. Motor grossly within normal limits. Five out of 5 muscle strength in the arms and legs -- left upper extremity with maybe 4 out of 5 motor strength. Normal speech. PSYCHIATRIC: Appropriate mood and affect; insight and judgment normal. Procedures 6-14 Tight right internal carotid artery stenosis and repeated strokes. POSTOPERATIVE DIAGNOSIS: Tight right internal carotid artery stenosis and repeated strokes. PROCEDURE PERFORMED: Right carotid endarterectomy patch angioplasty. SURGEON: Dylan Goncalves MD. ANESTHESIA: General. ESTIMATED BLOOD LOSS: 100 mL INDICATIONS: The patient prepped and draped in usual fashion. Right para sternocleidomastoid incision made, deepened down through the platysma to the level of the carotid sheath. The facial vein is ligated and divided. Common carotid, internal, external carotid arteries are dissected with a sharp dissection and then umbilical tape with Rumel placed around each. Weitlaner and iron chemist internship upper arm retractors are placed and the patient is given 7000 units of heparin. The external carotid artery is cinched down with a Rumel and internal and common carotid arteries are clamped with a bulldog and angled DeBakey clamp respectively. The vessel is opened longitudinally with Howell scissors and an [place] shunt immediately placed and blood flow reestablished. The patient is noted to have a huge plaque in the right carotid artery, which extends about an inch into the vessel. In the bifurcation, there are several ulcerated areas with holes in the plaque which were clearly segments that were flushing off. Plaque is hard on the surface and then it has underlying very cheesy soft bottom. I am surprised the patient did not have a massive stroke from this before. The plaque is now dissected in a media plane using [place] dissector and then removed. It peels off real nicely in the internal carotid artery and it is cut off straight in the common carotid artery. Surface is flushed with heparinized saline and small debris removed with Leksells and forceps. The intima in the internal carotid artery was tacked down with 7-0 Prolene and then 8 mm x 8 cm bovine patch is chosen. It is sewn in with a running 5-0 Prolene and, prior to completion of the closure, the [place] shunt is removed and closure completed. Blood flow is reestablished in the usual order and fashion preventing distal embolization. Area irrigated with copious amounts of saline and then a CHARU drain is placed. Incision closed with 0 Vicryl in layers and 4-0 Monocryl for the skin. Benzoin and Steri-Strips applied. The patient tolerated the procedure well. At the end of the procedure, the patient is neurologically fully intact. Dylan Goncalves MD Medications and IVs Current Medications Sodium Chloride (NS Flush) 2 ml UNSCH PRN IVF FLUSH AFTER USING IV ACCESS; Start 08/07/17 at 19:15; Stop 08/07/17 at 21:17; Status DC Sodium Chloride 1,000 ml @ 999 mls/hr BOLUS ONCE IV Last administered on at 20:11; Start 08/07/17 at 19:15; Stop 08/07/17 at 20:15; Status DC Aspirin (Aspirin Chew) 324 mg ONCE ONCE CHEW Last administered on 08/07/17at 20: 11; Start 08/07/17 at 20:15; Stop 08/07/17 at 20:16; Status DC Lorazepam (Ativan Inj) 1 mg ONCE ONCE IV PUSH Last administered on 08/07/17at 20 :29; Start 08/07/17 at 20:30; Stop 08/07/17 at 20:31; Status DC Sodium Chloride (NS Flush) 2 ml BID IV FLUSH Last administered on 08/09/17at 09: 38; Start 08/07/17 at 21:00; Stop 08/10/17 at 11:10; Status DC Sodium Chloride (NS Flush) 2 ml UNSCH PRN IV FLUSH FLUSH AFTER USING IV ACCESS ; Start 08/07/17 at 20:45; Stop 08/10/17 at 11:10; Status DC Sodium Chloride 1,000 ml @ 70 mls/hr [id number] IV Last administered on at 20:08; Start 08/07/17 at 20:41; Stop 08/10/17 at 11:18; Status DC Enalaprilat (Vasotec Inj) 1.25 mg Q4H PRN IV PUSH SBP>160, DBP>110 Last administered on 08/12/17at 22:23; Start 08/07/17 at 20:45 Aspirin (Aspirin Chew) 81 mg DAILY PO Last administered on 08/08/17at 09:00; Start 08/08/17 at 09:00; Stop 08/08/17 at 14:07; Status DC Pravastatin Sodium (Pravachol) 40 mg HS PO Last administered on 08/13/17at 21:20 ; Start 08/07/17 at 21:00 Insulin Aspart (NovoLOG SUPPLEMENTAL SCALE) 1 ACHS SQ ; Start 08/07/17 at 21:00; Stop 08/08/17 at 14:12; Status DC Dextrose (D50w (Vial) Inj) 50 ml UNSCH PRN IV PUSH HYPOGLYCEMIA-SEE COMMENTS; Start 08/07/17 at 20:45; Stop 08/08/17 at 14:12; Status DC Glucagon (Glucagon Inj) 1 mg UNSCH PRN OTHER HYPOGLYCEMIA-SEE COMMENTS; Start 08/07/17 at 20:45; Stop 08/08/17 at 14:12; Status DC Albuterol/ Ipratropium (Duoneb Neb) 1 ampule Q4HR NEB PRN NEB SOB/WHEEZING; Start 08/07/17 at 21:15 Quetiapine Fumarate (SEROquel) 100 mg HS PO Last administered on 08/13/17at 21: 20; Start 08/08/17 at 21:00 Lisinopril (Prinivil) 10 mg DAILY PO Last administered on 08/10/17at 09:13; Start 08/08/17 at 11:30; Stop 08/10/17 at 10:35; Status DC Acetaminophen/ Hydrocodone Bitart ([place] 10-325 Mg) 1 tab Q4H PRN PO pain 3-10 Last administered on 08/14/17at 06:07; Start 08/08/17 at 12:00 Morphine Sulfate (Morphine Inj) 4 mg ONCE ONCE IV PUSH Last administered on 12/16at 12:38; Start 08/08/17 at 12:00; Stop 08/08/17 at 12:01; Status DC Enoxaparin Sodium (Lovenox Inj) 40 mg Q24H SQ Last administered on 08/13/17at 11 :15; Start 08/08/17 at 12:00 Sodium Chloride (NS Flush) 2 ml BID IV FLUSH Last administered on 08/14/17at 09: 15; Start 08/08/17 at 21:00 Sodium Chloride (NS Flush) 2 ml UNSCH PRN IV FLUSH FLUSH AFTER USING IV ACCESS Last administered on 08/13/17at 21:20; Start 08/08/17 at 14:15 Aspirin (Aspirin) 325 mg DAILY PO Last administered on 08/14/17at 09:12; Start 08/08/17 at 14:15 Insulin Aspart (NovoLOG SUPPLEMENTAL SCALE) 1 ACHS SQ ; Start 08/08/17 at 17:00 ; Stop 08/09/17 at 08:33; Status DC Dextrose (D50w (Vial) Inj) 50 ml UNSCH PRN IV PUSH HYPOGLYCEMIA-SEE COMMENTS; Start 08/08/17 at 14:15; Stop 08/08/17 at 14:15; Status DC Glucagon (Glucagon Inj) 1 mg UNSCH PRN OTHER HYPOGLYCEMIA-SEE COMMENTS; Start 08/08/17 at 14:15; Stop 08/08/17 at 14:15; Status DC Lisinopril (Prinivil) 20 mg DAILY PO Last administered on 08/14/17at 09:32; Start 08/11/17 at 09:00 Lisinopril (Prinivil) 10 mg ONCE ONCE PO Last administered on 08/10/17at 12:56 ; Start 08/10/17 at 10:45; Stop 08/10/17 at 11:09; Status DC Sodium Chloride 1,000 ml @ 100 mls/hr Q10H IV Last administered on 08/10/17at 21:30; Start 08/10/17 at 11:30; Stop 08/11/17 at 07:29; Status DC Iohexol (Omnipaque 350 Inj) 71 ml STK-MED ONCE IVCONTRAST Last administered on 08/10/17at 11:22; Start 08/10/17 at 11:22; Stop 08/10/17 at 11:23; Status DC Albuterol/ Ipratropium (Duoneb Neb) 1 ampule ONCE ONCE NEB Last administered on 08/10/17at 16:02; Start 08/10/17 at 14:15; Stop 08/10/17 at 14:16; Status DC Amlodipine Besylate (Norvasc) 5 mg DAILY PO Last administered on 08/12/17at 08: 26; Start 08/10/17 at 14:15; Stop 08/12/17 at 09:38; Status DC Cefazolin Sodium/ Dextrose 50 ml @ 100 mls/hr SLIP COVER MAKER IV Last administered on 08/12/17at 10:42; Start 08/11/17 at 13:15; Stop 08/14/17 at 13:14 Lactated Ringer's 1,000 ml @ 30 mls/hr Q24H PRN IV SEE LABEL COMMENTS Last administered on 08/12/17at 10:16; Start 08/11/17 at 16:30; Stop 08/13/17 at 10:41 ; Status DC Sodium Chloride 500 ml @ 30 mls/hr [id number] PRN IV SEE LABEL COMMENTS; Start at 16:30; Stop 08/13/17 at 10:41; Status DC Metoprolol Tartrate (Lopressor) 25 mg SLIP COVER MAKER PRN PO SEE LABEL COMMENTS; Start 08/11/17 at 16:30; Stop 08/14/17 at 16:29 Povidone Iodine (Betadine 5% Antisepsis Kit) 1 applic SLIP COVER MAKER PRN EACH NARE SEE LABEL COMMENTS; Start 08/11/17 at 16:30; Stop 08/14/17 at 16:29 Chlorhexidine Gluconate (Chlorhexidine 2% Cloth) 3 pack SLIP COVER MAKER PRN TOPICAL SEE LABEL COMMENTS; Start 08/11/17 at 16:30; Stop 08/14/17 at 16:29 Amlodipine Besylate (Norvasc) 5 mg BID PO Last administered on 08/14/17at 09:13 ; Start 08/12/17 at 21:00 Metoprolol Tartrate (Lopressor) 25 mg Q12HR PO ; Start 08/12/17 at 21:00; Stop 08/12/17 at 21:00; Status DC Acetaminophen 100 ml @ As Directed STK-MED ONCE IV ; Start 08/12/17 at 10:07; Stop 08/12/17 at 10:08; Status DC Heparin Sodium (Porcine) (Heparin Inj) 10,000 units STK-MED ONCE .ROUTE Last administered on 08/12/17at 12:37; Start 08/12/17 at 10:14; Stop 08/12/17 at 10:15 ; Status DC Heparin Sodium (Porcine) (Heparin Inj) 10,000 units STK-MED ONCE .ROUTE Last administered on 08/12/17at 12:46; Start 08/12/17 at 10:15; Stop 08/12/17 at 10:16 ; Status DC Protamine Sulfate (Protamine Sulfate Inj) 50 mg STK-MED ONCE .ROUTE ; Start at 10:15; Stop 08/12/17 at 10:16; Status DC Lidocaine HCl (Xylocaine 1% Inj (50 ml)) 50 ml STK-MED ONCE .ROUTE Last administered on 08/12/17at 12:37; Start 08/12/17 at 10:15; Stop 08/12/17 at 10:16 ; Status DC Nitroglycerin 5 ml @ As Directed STK-MED ONCE .ROUTE ; Start 08/12/17 at 11:58; Stop 08/12/17 at 11:59; Status DC Meperidine HCl (*DEMEROL INJ PERIprocedural ONLY) 25 mg STK-MED ONCE .ROUTE Last administered on 08/12/17at 14:22; Start 08/12/17 at 14:22; Stop 08/12/17 at 14:23; Status DC Morphine Sulfate (*morphine INJ PERIprocedure ONLY) 4 mg STK-MED ONCE .ROUTE Last administered on 08/12/17at 14:25; Start 08/12/17 at 14:25; Stop 08/12/17 at 14:26; Status DC Morphine Sulfate (*morphine INJ PERIprocedure ONLY) 8 mg STK-MED ONCE .ROUTE Last administered on 08/12/17at 14:33; Start 08/12/17 at 14:30; Stop 08/12/17 at 14:31; Status DC Hydromorphone HCl (Dilaudid Pf Inj) 2 mg STK-MED ONCE .ROUTE Last administered on 08/12/17at 14:51; Start 08/12/17 at 14:48; Stop 08/12/17 at 14:49; Status DC Miscellaneous Information ([facility] [place] Nursing Information) ALL NURSING DEPARTME... UNSCH PRN .XX SEE LABEL COMMENTS; Start 08/12/17 at 14:14; Stop 08/13/17 at 14: 13; Status DC Fentanyl Citrate (fentaNYL INJ) 300 mcg STK-MED ONCE .ROUTE ; Start 08/12/17 at 14:57; Stop 08/12/17 at 14:58; Status DC Midazolam HCl (Versed Inj) 2 mg STK-MED ONCE .ROUTE ; Start 08/12/17 at 14:57; Stop 08/12/17 at 14:58; Status DC Hydromorphone HCl (Dilaudid Pf Inj) 2 mg STK-MED ONCE .ROUTE Last administered on 08/12/17at 15:06; Start 08/12/17 at 15:06; Stop 08/12/17 at 15:07; Status DC Hydromorphone HCl (Dilaudid Pf Inj) 2 mg STK-MED ONCE .ROUTE Last administered on 08/12/17at 16:15; Start 08/12/17 at 16:15; Stop 08/12/17 at 16:16; Status DC Clopidogrel Bisulfate (Plavix) 75 mg DAILY PO Last administered on 08/14/17at 09 :12; Start 08/12/17 at 19:15 Metoprolol Tartrate (Lopressor Inj) 5 mg Q6HR IV PUSH Last administered on 08/13at 11:14; Start 08/12/17 at 18:45; Stop 08/13/17 at 14:58; Status DC Clonidine (Catapres-Tts 0.2 Mg Patch.7d) 1 patch Q7D T-DERMAL Last administered on 08/12/17at 21:44; Start 08/12/17 at 20:00 Miscellaneous Information 1 Q7D T-DERMAL ; Start 08/19/17 at 20:00 Nicotine (Habitrol 21 Mg Patch.24 Hr) 1 patch ONCE ONCE T-DERMAL Last administered on 08/13/17at 11:14; Start 08/13/17 at 10:45; Stop 08/13/17 at 10:53 ; Status DC Nicotine (Habitrol 21 Mg Patch.24 Hr) 1 patch DAILY T-DERMAL Last administered on 08/14/17at 09:18; Start 08/14/17 at 09:00 Miscellaneous Information 1 DAILY T-DERMAL Last administered on 08/14/17at 09:00 ; Start 08/14/17 at 09:00 Metoprolol Tartrate (Lopressor) 25 mg Q12HR PO Last administered on 08/13/17at 21:20; Start 08/13/17 at 15:00; Stop 08/14/17 at 08:44; Status DC Metoprolol Tartrate (Lopressor) 50 mg Q12HR PO Last administered on 08/14/17at 09:13; Start 08/14/17 at 09:00 Clonidine (Catapres) 0.2 mg Q12HR PO Last administered on 08/14/17at 09:33; Start 08/14/17 at 09:30 A/P Problem List: (1) CVA (cerebral vascular accident) ICD Code: I63.9 - Cerebral infarction, unspecified Status: Acute (2) HTN (hypertension) ICD Code: I10 - Essential (primary) hypertension (3) COPD (chronic obstructive pulmonary disease) ICD Code: J44.9 - Chronic obstructive pulmonary disease, unspecified (4) Cocaine abuse ICD Code: F14.10 - Cocaine abuse, uncomplicated (5) Tobacco abuse ICD Code: Z72.0 - Tobacco use Assessment and Plan CVA Acute onset LUE weakness/ tremor w/ slurred speech x1 day. CT Head w/ subacute/ remote infarct to right parietal lobe and remote right lacunar infarct basal ganglia. UDS + cocaine, opiates and cannabinoids. Neurology consultation appreciated. A1c 5.7%. Right carotid with severe stenosis. MRI: Multiple infarcts in the right MCA distribution, predominantly posteriorly. CTA carotids : High-grade stenosis at the origin of the right internal carotid artery with extensive soft plaque and large ulcerations; Slight atherosclerotic disease with soft plaque and mild ulceration at the origin of the left ICA without any significant stenosis. Vascular surgery consult appreciated. Left arm tremor is improved. - Neuro checks. - follow up with neurology. - likely CEA per vascular surgery. - PT/ OT/ ST. - ASA, statin. - echo pending. - blood pressure control. RIGHT ICA TO HAVE PROCEDURE TODAY 6-14 Tight right internal carotid artery stenosis and repeated strokes. POSTOPERATIVE DIAGNOSIS: Tight right internal carotid artery stenosis and repeated strokes. PROCEDURE PERFORMED: Right carotid endarterectomy patch angioplasty. SURGEON: Dylan Goncalves MD. Hypertensive emergency S/p permissive HTN in light of CVA. Still poorly controlled. - increase lisinopril to 20 mg daily. Adjust as needed. - add amlodipine 5 mg daily. - Vasotec as needed. COPD Mild wheezing on exam. CXR clear. - DuoNeb prn. - O2 as needed. - incentive spirometry. Cocaine Abuse Admits to recent use 2 days prior to admission. - pt counselled. - Ativan prn. Tobacco Abuse Counselled. - No NicoDerm to avoid vasoconstriction. - Ativan prn Renal insufficiency GFR 61 on admission. - IVFs and avoid nephrotoxins. - BMP in AM. DVT Prophylaxis: Lovenox MEDS ADJUSTED DC TO HOME TODAY FOLLOW UP WITH SURGERY AND PCP STOP SMOKING Discharge Planning STOP SMOKING DC TO HOME TODAY Problem Qualifiers (1) CVA (cerebral vascular accident): Qualified Codes: I63.9 - Cerebral infarction, unspecified Cuate Carroll DO Aug 14, 2017 10:02
--- NOTE | 2017-08-14 10:05 | HHI.DS ---
Discharge Summary Admission Date Aug 07, 2017 at 20:45 Discharge Date: Aug 14, 2017 Admitting Diagnosis CVA (1) CVA (cerebral vascular accident) ICD Code: I63.9 - Cerebral infarction, unspecified Diagnosis: Principal Status: Acute (2) HTN (hypertension) ICD Code: I10 - Essential (primary) hypertension Diagnosis: Principal (3) COPD (chronic obstructive pulmonary disease) ICD Code: J44.9 - Chronic obstructive pulmonary disease, unspecified Diagnosis: Secondary (4) Cocaine abuse ICD Code: F14.10 - Cocaine abuse, uncomplicated Diagnosis: Principal (5) Tobacco abuse ICD Code: Z72.0 - Tobacco use Diagnosis: Principal (6) Noncompliance ICD Code: Z91.19 - Patient's noncompliance with other medical treatment and regimen Diagnosis: Principal (7) Stenosis of right internal carotid artery ICD Code: I65.21 - Occlusion and stenosis of right carotid artery Diagnosis: Principal Procedures 6-14 Tight right internal carotid artery stenosis and repeated strokes. POSTOPERATIVE DIAGNOSIS: Tight right internal carotid artery stenosis and repeated strokes. PROCEDURE PERFORMED: Right carotid endarterectomy patch angioplasty. SURGEON: Dylan Goncalves MD. ANESTHESIA: General. ESTIMATED BLOOD LOSS: 100 mL INDICATIONS: The patient prepped and draped in usual fashion. Right para sternocleidomastoid incision made, deepened down through the platysma to the level of the carotid sheath. The facial vein is ligated and divided. Common carotid, internal, external carotid arteries are dissected with a sharp dissection and then umbilical tape with Rumel placed around each. Weitlaner and iron culinary intern upper arm retractors are placed and the patient is given 7000 units of heparin. The external carotid artery is cinched down with a Rumel and internal and common carotid arteries are clamped with a bulldog and angled DeBakey clamp respectively. The vessel is opened longitudinally with Howell scissors and an Erie shunt immediately placed and blood flow reestablished. The patient is noted to have a huge plaque in the right carotid artery, which extends about an inch into the vessel. In the bifurcation, there are several ulcerated areas with holes in the plaque which were clearly segments that were flushing off. Plaque is hard on the surface and then it has underlying very cheesy soft bottom. I am surprised the patient did not have a massive stroke from this before. The plaque is now dissected in a media plane using [place] dissector and then removed. It peels off real nicely in the internal carotid artery and it is cut off straight in the common carotid artery. Surface is flushed with heparinized saline and small debris removed with Leksells and forceps. The intima in the internal carotid artery was tacked down with 7-0 Prolene and then 8 mm x 8 cm bovine patch is chosen. It is sewn in with a running 5-0 Prolene and, prior to completion of the closure, the Erie shunt is removed and closure completed. Blood flow is reestablished in the usual order and fashion preventing distal embolization. Area irrigated with copious amounts of saline and then a CHARU drain is placed. Incision closed with 0 Vicryl in layers and 4-0 Monocryl for the skin. Benzoin and Steri-Strips applied. The patient tolerated the procedure well. At the end of the procedure, the patient is neurologically fully intact. Dylan Goncalves MD Brief History - From Admission This is a 57-year-old male with a PMH of HTN, Hyperlipidemia, Bipolar Disorder, COPD, Tobacco Abuse and Cocaine Abuse who presented to the ER with complaints of left arm weakness x1 day. States he's been unable to move his left arm since yesterday. When I asked him why he didn't come into the ER at that time, he said "because of transportation issues". Denies previous h/o CVA. Does admit to Cocaine, last use 2 days ago. +associated slurred speech. On arrival , BP 223/108, HR 88, O2 sat 92% on RA, Afebrile. CBC essentially unremarkable except for WBC 11.4. Chemistry unremarkable except for GFR 61. Troponin negative. UA negative. Urine Drug Screen positive for Cocaine, THC and Opiates. CXR with no acute findings. CT Head with wedge-shaped area of subacute or remote infarct right parietal lobe, remote right lacunar infarct basal ganglia. CT C-spine with no acute findings. CBC/BMP: 08/14/17 0639 08/14/17 0639 Significant Findings Laboratory Tests Test 08/12/17 04:35 08/13/17 05:00 08/14/17 06:39 Monocytes (%) (Auto) 10.1 % (0.0-8.0) 10.5 % (0.0-8.0) Eosinophils (%) (Auto) 4.2 % (0.0-4.0) Albumin 3.0 GM/DL (3.4-5.0) 2.8 GM/DL (3.4-5.0) 3.1 GM/DL (3.4-5.0) Chloride Level 108 MEQ/L (98-107) Estimat Glomerular Filtration Rate 72 ML/MIN (>89) 57 ML/MIN (>89) 80 ML/MIN (>89) White Blood Count 13.8 TH/MM3 (4.0-11.0) Red Blood Count 4.08 MIL/MM3 (4.50-5.90) 4.32 MIL/MM3 (4.50-5.90) Hemoglobin 12.4 GM/DL (13.0-17.0) Hematocrit 36.7 % (39.0-51.0) Neutrophils (%) (Auto) 83.1 % (16.0-70.0) Neutrophils # (Auto) 11.5 TH/MM3 (1.8-7.7) Monocytes # (Auto) 1.0 TH/MM3 (0-0.9) 1.1 TH/MM3 (0-0.9) Blood Urea Nitrogen 20 MG/DL (7-18) Creatinine 1.31 MG/DL (0.60-1.30) Random Glucose 218 MG/DL (74-106) 73 MG/DL (74-106) Phosphorus Level 2.4 MG/DL (2.5-4.9) Aspartate Amino Transf (AST/SGOT) 14 U/L (15-37) 11 U/L (15-37) Mean Platelet Volume 11.9 FL (7.0-11.0) Imaging Last Impressions Neck CTA 08/10/17 0000 Signed Impressions: CONCLUSION: 1. High-grade stenosis at the origin of the right internal carotid artery with extensive soft plaque and large ulcerations. 2. Slight atherosclerotic disease with soft plaque and mild ulceration at the origin of the left ICA without any significant stenosis. Head Magnetic Resonance Angiography 08/08/17 Signed Impressions: CONCLUSION: 1. Exam degraded by motion with no significant stenosis or aneurysm identified . Carotid Artery Ultrasound 08/08/17 Signed Impressions: CONCLUSION: 1. Right Internal Carotid Artery: Severe stenosis at the proximal right culinary intern al carotid artery. This could be better evaluated with CTA carotids. 2. Left Internal Carotid Artery: No hemodynamically significant stenosis. Brain MRI 08/08/17 Signed Impressions: CONCLUSION: 1. Multiple infarcts in the right MCA distribution predominantly posteriorly a s above. 2. Mild to moderate chronic white matter ischemic changes in the periventricul ar region. Head CT 08/07/171903 Signed Impressions: CONCLUSION: 1. Wedge-shaped area of decreased attenuation in the right parietal lobe most characteristic of a subacute or remote infarct. Also remote right lacunar infar ct in the basal ganglia. No hemorrhage or mass effect. Chest X-Ray 08/07/171903 Signed Impressions: CONCLUSION: No active disease. Cervical Spine CT 08/07/171903 Signed Impressions: CONCLUSION: 1. Moderate degenerative change. Previous fusion at C6-7. No significant canal stenosis. PE at Discharge GENERAL: Awake alert and oriented 3 talkative and cooperative-still has some left upper extremity weakness SKIN: Warm and dry. HEAD: Atraumatic. Normocephalic. EYES: Pupils equal and round. No scleral icterus. No injection or drainage. ENT: No nasal bleeding or discharge. Mucous membranes pink and moist. NECK: Trachea midline. No JVD. RIGHT SIDE OF NECK IS DRESSED WITH DRAIN IN PLACE CARDIOVASCULAR: Regular rate and rhythm. S1-S2 no S3 or S4 RESPIRATORY: No accessory muscle use. Clear to auscultation. Breath sounds equal bilaterally. GASTROINTESTINAL: Abdomen soft, non-tender, nondistended. Hepatic and splenic margins not palpable. MUSCULOSKELETAL: Extremities without clubbing, cyanosis, or edema. No obvious deformities. NEUROLOGICAL: Awake and alert. No obvious cranial nerve deficits. Motor grossly within normal limits. Five out of 5 muscle strength in the arms and legs -- left upper extremity with maybe 4 out of 5 motor strength. Normal speech. PSYCHIATRIC: Appropriate mood and affect; insight and judgment normal. Hospital Course This is a 57-year-old male with a PMH of HTN, Hyperlipidemia, Bipolar Disorder, COPD, Tobacco Abuse and Cocaine Abuse who presented to the ER with complaints of left arm weakness x1 day. States he's been unable to move his left arm since yesterday. When I asked him why he didn't come into the ER at that time, he said "because of transportation issues". Denies previous h/o CVA. Does admit to Cocaine, last use 2 days ago. +associated slurred speech. On arrival , BP 223/108, HR 88, O2 sat 92% on RA, Afebrile. CBC essentially unremarkable except for WBC 11.4. Chemistry unremarkable except for GFR 61. Troponin negative. UA negative. Urine Drug Screen positive for Cocaine, THC and Opiates. CXR with no acute findings. CT Head with wedge-shaped area of subacute or remote infarct right parietal lobe, remote right lacunar infarct basal ganglia. CT C-spine with no acute findings. 6-12 The patient said that he wanted to go home. He understood that he needed to stay in the hospital for further intervention. He said that his blood pressure is always poorly controlled. He says that he is going to try to stay away from people who are using cocaine. He says he is not a drinker. 6-13 patient states he is scheduled for surgery tomorrow with Dr. Goncalves regarding the right ICA States he is moving his left side better Denies any shortness of breath Denies any chest pain Denies any palpitations discussed with patient and RN and assistant case manager We will get a.m. labs 6-14 DW PATIENT TO HAVE SURGERY TODAY TO HAVE RIGHT ICA TODAY 6-15 had surgery on RIGHT CEA YESTERDAY STILL HAS DRAIN IN PLACE CRAVING NICOTINE WANTS PATCH WANTS HHC AT [place] [facility]ERR[facility] RN AND PT WILL DO FACE TO FACE 616 WANTS TO GO HOME TODAY [facility] RN AND PT AND CM CLEARED BY VASCULAR SURGERY AR TO HOME WITH [facility] Pt Condition on Discharge: Good Discharge Disposition: Disch w/ Home Health Serv Discharge Time: > 30 minutes Discharge Instructions DIET: Follow Instructions for: Heart Healthy Diet Speech Therapy-Diet Recommends: Regular Activities you can perform: Shower Only-No Bath Follow up Referrals: PCP Follow-up - 2-3 Days Surgical - 1 Week with Dylan Goncalves MD New Medications: Sennosides (Senna-Lax) 8.6 Mg Tab 2 TAB PO BID for Constipation, #120 TAB Amlodipine (Norvasc) 5 Mg Tab 5 MG PO BID for Blood Pressure Management, #60 TAB Clonidine 168 HR Patch ([id number] 168 HR Patch) 0.2 Mg/24 Hr Patch 1 PATCH T-DERMAL Q7D for Blood Pressure Management, #5 PATCH Clopidogrel (Plavix) 75 Mg Tab 75 MG PO DAILY for Blood Clot Prevention, #31 TAB Lisinopril (Lisinopril) 10 Mg Tab 20 MG PO DAILY for Blood Pressure Management, #60 TAB Metoprolol Tartrate (Metoprolol Tartrate) 25 Mg Tab 50 MG PO Q12HR for Blood Pressure Management, #120 TAB Nicotine (Eq Nicotine) 21 Mg/24 Hour Dis 1 PATCH T-DERMAL DAILY for TOBACCO, #30 PATCH Pravastatin (Pravachol) 40 Mg Tab 40 MG PO HS for Cholesterol Management, #30 TAB Continued Medications: Hydrocodone-Acetaminophen (Hydrocodone-Acetaminophen) 10-325 mg Tab 1 TAB PO Q6H PRN for PAIN, #30 TAB 0 Refills (This prescription has been renewed ) Methocarbamol (Robaxin) 750 Mg Tab 750 MG PO QID for Muscle Spasm, #40 TAB 0 Refills Quetiapine (Seroquel) 100 Mg Tab 100 MG PO HS for Anxiety, #30 TAB 0 Refills (This prescription has been renewed) Additional Information STOP SMOKING NO ALCOHOL Cuate Carroll DO Aug 14, 2017 10:05
[2017-08-19] MEDS ORDERED: REMOVE OLD CATAPRES (CLONIDINE) PATCH T-DERMAL SCH (20:00)
== END 2017-08-14 11:05 | disposition home health service (06) | DRG 38 ==
LOC: NEPE 18:19 → NEDA 20:45 → N05A 21:49 → N03B 08-12 14:15 → N03A 08-12 17:04 → N05A 08-13 15:13
PROVIDERS: ADMIT Hospitalist; ATTEND Hospitalist
PROC: 03CK0Z6 (ICD-10-PCS; 2017-08-12)
PROC: 03UK0KZ Supplement Right Internal Carotid Artery with Nonautologous Tissue Substitute, Open Approach (ICD-10-PCS; 2017-08-12)
PROC: 03CH0Z6 (ICD-10-PCS; principal; 2017-08-12 11:03)
DX: I63.231 Cerebral infarction due to unspecified occlusion or stenosis of right carotid arteries (principal); I16.1 Hypertensive emergency; J96.10 Chronic respiratory failure, unspecified whether with hypoxia or hypercapnia; J44.1 Chronic obstructive pulmonary disease with (acute) exacerbation; I10 Essential (primary) hypertension; E78.5 Hyperlipidemia, unspecified; R47.81 Slurred speech; G83.24 Monoplegia of upper limb affecting left nondominant side; R25.1 Tremor, unspecified; R25.2 Cramp and spasm; N28.9 Disorder of kidney and ureter, unspecified; F12.90 Cannabis use, unspecified, uncomplicated; F14.10 Cocaine abuse, uncomplicated; F17.210 Nicotine dependence, cigarettes, uncomplicated; F31.9 Bipolar disorder, unspecified; Z86.73 Personal history of transient ischemic attack (TIA), and cerebral infarction without residual deficits; Z91.19 Patient's noncompliance with other medical treatment and regimen; Z98.1 Arthrodesis status
CPT/HCPCS: 70450; 70498; 70544; 70551; 71045; 72125; 80048; 80053; 80061; 80307; 81001; 81240; 81241; 82550; 82948; 83036; 83735; 84100; 84439; 84443; 84484; 85025; 85027; 85303; 85306; 85597; 85610; 85613; 85730; 86147; 86850; 86900; 86901; 86920; 88304; 88305; 88311; 93005; 93306; 93880; 94150; 94664; 96361; 96374; C1768; J0131; J0690; J1100; J1170; J1644; J1650; J2060; J2175; J2250; J2270; J2370; J2405; J2720; J3010; J7030; J7120; Q9967